=== PATIENT | male | born 1965 | race Caucasian/White ===

== ENCOUNTER → 2016-07-16 | Day surgery (SDC) | payer OTHER ==
[~2016-07-16] VITALS: Ht 182.9 cm; Wt 150.1 kg
[~2016-07-16] MED LIST: *ONDANSETRON 4 MG VIAL PERIprocedural Use ONLY ONE; *PROMETHAZINE 25 MG/ML VIAL PERIprocedural use ONLY ONE; *morphine SULFATE 8 MG/ML PERIprocedure ONLY ONE; ASPI325T PO; BACITRACIN TOP OINT 15 GM TUBE ONE; BUPIVACAINE HCL PF 0.5% 30 ML VIAL ONE; CARV6.252 PO; CHLORHEXIDINE GLUCONATE 2 % 1 PACK (2 CLOTHS) TOPICAL PRN; DO NOT ADM ANY ANTICOAGULANT DRUGS PRN; FAMOTIDINE 20 MG/2 ML VIAL ONE; FURO1TAB62 PO; INSULIN HUMAN REGULAR 1,000 UNITS/10 ML VIAL SQ PRN; KETOROLAC TROMETHAMINE 60 MG/2 ML (IM) VIAL IM ONE; LACTATED RINGER'S 1000 ML IV PRN; LIDOCAINE HCL 2% 50 ML VIAL ONE; METF-382 PO; METOPROLOL TARTRATE 25 MG TAB PO PRN; MIDAZOLAM HCL 2 MG/2 ML VIAL ONE; MORPHINE SULFATE 4 MG/ML INJ IV PRN; NEOSTIGMINE 3 MG/3 ML SYR IV ONE; ONDANSETRON HCL 4 MG/2 ML VIAL IV PUSH ONE; ONDANSETRON HCL 4 MG/2 ML VIAL IV PUSH PRN; POTA10CA PO; POVIDONE IODINE 5% (ANTISEPSIS KIT) 4 APPLICATIONS EACH NARE PRN; PROPOFOL 200 MG/20 ML AMP IV ONE; SIMV80TA PO; SODIUM CHLORID 0.9% 500 ML IV PRN; TAMS5CAP PO; ceFAZolin 1,000 MG/NS 100 ML IV SCH; fentaNYL CITRATE 250 MCG/5 ML AMP ONE; oxyCODONE/ACETAMINOPHEN 5 MG/325 MG TAB PO PRN
[2016-07-16 06:30] VITALS: BP 147/89; PULSE 75; RESP 18; TEMP 98; O2SAT 96
[2016-07-16 06:50] LABS: AUTOMATED NEUTROPHIL # 4.2 TH/MM3 (1.8-7.7); BASOPHIL # 0.1 TH/MM3 (0-0.2); BASOPHIL % 0.8 % (0.0-2.0); EOSINOPHIL # 0.4 TH/MM3 (0-0.4); EOSINOPHIL % 4.8 % (0.0-4.0); HEMATOCRIT 45.6 % (39.0-51.0); HEMO FLAGS DIFF FINAL; LYMPH % 33.7 % (9.0-44.0); LYMPHOCYTE # 2.7 TH/MM3 (1.0-4.8); MEAN CELL VOLUME 83.5 FL (80.0-100.0); MEAN CORPUSCULAR HGB CONC 34.7 % (32.0-36.0); MONO % 8.5 % (0.0-8.0); NEUT % 52.2 % (16.0-70.0); PLATELET COUNT 184 TH/MM3 (150-450); RED BLOOD COUNT 5.46 MIL/MM3 (4.50-5.90); RED CELL DISTRIBUTION WIDTH 12.7 % (11.6-17.2); WHITE BLOOD COUNT 8.1 TH/MM3 (4.0-11.0)
--- NOTE | 2016-07-16 10:20 | PD.OP ---
Operative Report Date of Surgery: July 16, 2016 Preoperative Diagnosis: Phimosis, Desire for elective sterilization Postoperative Diagnosis: Phimosis, Desire for elective sterilization, penile condyloma Procedure: Bilateral vasectomy Circumcision Excision of penile condyloma Anesthesia: Gen. Surgeon: Brandon Preston Care Partner(s): None Resident Surgeon: None Operation and Findings: Patient was brought to the operating room and therefore myself as Rene Hollingsworth. He was placed on the operating room in the supine position. He was prepped and draped in usual sterile fashion, received preprocedure antibiotics, and general LMA anesthesia was administered. The median raphae was identified and using my left index finger and thumb the vas deference on the patient's right side was identified. It was brought up to the area of the median raphae and 5 cc of 0.5% Marcaine was injected into the area. The ring clamp was used to grasp the right vas deference and this area. 15 blade was used to make a small incision over the area of the vas. The ring clamp was then used to grab the vas and bring it through the surface of the skin. The piercing forcep clamp was then used to release the attachments surrounding the vas deferens. Once the length was sufficient, the vas was cut. The specimen was then sent to pathology. The ends of the proximal and distal vas deference were then cauterized and oversewn with 4-0 chromic suture. Hemostasis was checked for and obtained. The vas was then released back into the scrotum. This entire procedure was then repeated with the left vas deference and the skin was then closed with interrupted 4-0 Monocryl suture. Attention then was directed to the performing of the circumcision. A double ring circumcision was performed. 15 blade was used to make a circumferential incision into the skin overlying the glans. Another incision was then made circumferentially at the skin level just proximal to the head of the glans. The skin in between the 2 incisions was then removed using the Bovie cautery. Hemostasis was obtained. 3-0 chromic sutures were then used in interrupted fashion to close the foreskin and bring the ends back together. At this time, it was noted that there was a small area of condyloma near the glans penis. Using the 15 blade, a small wart was removed. The area was then fulgurated with the Bovie cautery. Dressings were placed over the incision site with Xeroform and a half inch Dmitry. The patient tolerated the procedures well and was extubated and transferred curb in stable condition. He will follow-up in one month to review the pathology and do a wound check at that time. Brandon Preston DO July 16, 2016 10:20
[2016-07-16 11:30] VITALS: BP 150/79; PULSE 78; RESP 22; TEMP 97.6; O2SAT 95
--- NOTE | 2016-07-20 12:49 | EKG ---
Date Performed: 07/16/2016 Time Performed: 06:51:25 PTAGE: 51 years EKG: Sinus rhythm MODERATE INTRAVENTRICULAR CONDUCTION DELAY BORDERLINE ECG PREVIOUS TRACING : 03/14/2015 19.02 DOCTOR: Kristofer Taylor Interpretating Date/Time 07/20/2016 12:47:49
== END | disposition home or self-care (01) ==
LOC: HSDC 05:36
PROVIDERS: ATTEND Urology
DX: N47.1 Phimosis (principal); Z30.2 Encounter for sterilization; A63.0 Anogenital (venereal) warts; Z01.818 Encounter for other preprocedural examination; Z01.810 Encounter for preprocedural cardiovascular examination
CPT/HCPCS: 00920; 54060; 54150; 55250; 85025; 88302; 88305; 93005; J0690; J1885; J2250; J2270; J2405; J2550; J2710; J3010

== ENCOUNTER 2016-10-20 20:36 | Emergency (ER) | payer OTHER ==
[~2016-10-20] VITALS: Ht 182.9 cm; Wt 153.0 kg
[~2016-10-20 20:36] MED LIST changes: -*ONDANSETRON 4 MG VIAL PERIprocedural Use ONLY ONE; -*PROMETHAZINE 25 MG/ML VIAL PERIprocedural use ONLY ONE; -*morphine SULFATE 8 MG/ML PERIprocedure ONLY ONE; -BACITRACIN TOP OINT 15 GM TUBE ONE; -BUPIVACAINE HCL PF 0.5% 30 ML VIAL ONE; -CHLORHEXIDINE GLUCONATE 2 % 1 PACK (2 CLOTHS) TOPICAL PRN; -DO NOT ADM ANY ANTICOAGULANT DRUGS PRN; -FAMOTIDINE 20 MG/2 ML VIAL ONE; -INSULIN HUMAN REGULAR 1,000 UNITS/10 ML VIAL SQ PRN; -KETOROLAC TROMETHAMINE 60 MG/2 ML (IM) VIAL IM ONE; -LACTATED RINGER'S 1000 ML IV PRN; -LIDOCAINE HCL 2% 50 ML VIAL ONE; -METOPROLOL TARTRATE 25 MG TAB PO PRN; -MIDAZOLAM HCL 2 MG/2 ML VIAL ONE; -MORPHINE SULFATE 4 MG/ML INJ IV PRN; -NEOSTIGMINE 3 MG/3 ML SYR IV ONE; -ONDANSETRON HCL 4 MG/2 ML VIAL IV PUSH ONE; -ONDANSETRON HCL 4 MG/2 ML VIAL IV PUSH PRN; -POVIDONE IODINE 5% (ANTISEPSIS KIT) 4 APPLICATIONS EACH NARE PRN; -PROPOFOL 200 MG/20 ML AMP IV ONE; -SODIUM CHLORID 0.9% 500 ML IV PRN; -ceFAZolin 1,000 MG/NS 100 ML IV SCH; -fentaNYL CITRATE 250 MCG/5 ML AMP ONE; -oxyCODONE/ACETAMINOPHEN 5 MG/325 MG TAB PO PRN
[2016-10-20 20:51] VITALS: BP 188/84; PULSE 85; RESP 20; TEMP 98; O2SAT 95
[2016-10-20 22:50] VITALS: BP 176/87; PULSE 80; RESP 20; O2SAT 96
[2016-10-20] MEDS ORDERED: SODIUM CHLORIDE 0.9% FLUSH 10 ML FLUSH IVF PRN (23:15)
--- NOTE | 2016-10-20 23:15 | PD ---
HPI Chief Complaint: Chest Pain Time Seen by Provider: 22:58 Travel History International Travel<30 days: No Contact w/Intl Traveler<30days: No Traveled to known affect area: No History of Present Illness HPI The patient is a 51-year-old male that complains of subxiphoid pain, right upper quadrant pain and slight left upper quadrant pain for about 3 days. He does have fatty food intolerance. He states he was worried about his gallbladder. The pain occasionally radiates to the back. He is not nauseated and he denies any diarrhea but does get short of breath. There is no radiation of the pain. The pain is constant although it increases and decreases in intensity. PFSH Past Medical History Hx Anticoagulant Therapy: No Blood Disorders: No Cancer: No Cardiovascular Problems: No High Cholesterol: Yes Chemotherapy: No Cerebrovascular Accident: Yes Diabetes: Yes Patient Takes Glucophage: Yes Diminished Hearing: No Endocrine: Yes Gastrointestinal Disorders: Yes (pancreatitis in past ) Genitourinary: No Hepatitis: No Hiatal Hernia: No Hypertension: Yes Immune Disorder: No Musculoskeletal: No Neurologic: No Psychiatric: No Reproductive: No Respiratory: No Immunizations Current: Yes Thyroid Disease: No Tetanus Vaccination: < 5 Years Influenza Vaccination: No Past Surgical History Abdominal Surgery: Yes (VENTRICAL HERNIA REPAIR) AICD: No Cardiac Surgery: No Ear Surgery: No Endocrine Surgery: No Eye Surgery: No Genitourinary Surgery: No Joint Replacement: No Oral Surgery: No Pacemaker: No Thoracic Surgery: No Other Surgery: Yes (hernia, cyst removal, vasectomy) Social History Alcohol Use: No Tobacco Use: Yes (4-6 CIGS DAILY) Substance Use: No Allergies-Medications (Allergen,Severity, Reaction): Coded Allergies: No Known Allergies (Verified , 10/20/16) Reported Meds & Prescriptions Reported Meds & Active Scripts Active Flomax (Tamsulosin HCl) 0.4 Mg Cap 0.4 Mg PO HS Reported Simvastatin 80 Mg Tab 80 Mg PO DAILY Potassium Chloride ER (Potassium Chloride) 10 Meq Cap 10 Meq PO DAILY Lasix (Furosemide) 20 Mg Tab 20 Mg PO DAILY Metformin ER (Metformin HCl) 1,000 Mg Robbi 1,000 Mg PO BID With evening meal Carvedilol 6.25 Mg Tab 6.25 Mg PO Q12HR Aspirin 325 Mg Tab 325 Mg PO DAILY Review of Systems Except as stated in HPI: all other systems reviewed are Neg Physical Exam Narrative GENERAL: The patient is alert, oriented 3, morbidly obese and slight apparent distress with his abdominal pain. His vital signs show blood pressure 176/87 but are otherwise normal. SKIN: Focused skin assessment warm/dry. HEAD: Atraumatic. Normocephalic. EYES: Pupils equal and round. No scleral icterus. No injection or drainage. ENT: No nasal bleeding or discharge. Mucous membranes pink and moist. NECK: Trachea midline. No JVD. CARDIOVASCULAR: Regular rate and rhythm. No murmur appreciated. RESPIRATORY: No accessory muscle use. Clear to auscultation. Breath sounds equal bilaterally. GASTROINTESTINAL: Abdomen soft, with tenderness in the right upper quadrant to direct palpation and tenderness in the xiphoid process and slight tenderness in the left upper quadrant, nondistended. Hepatic and splenic margins not palpable. No guarding or rebound is present. MUSCULOSKELETAL: No obvious deformities. No clubbing. No cyanosis. No edema. NEUROLOGICAL: Awake and alert. No obvious cranial nerve deficits. Motor grossly within normal limits. Normal speech. PSYCHIATRIC: Appropriate mood and affect; insight and judgment normal. Data Data Last Documented VS Vital Signs Date Time Temp Pulse Resp B/P Pulse Ox O2 Delivery O2 Flow Rate FiO2 10/21/16 00:09 85 20 182/85 96 206/95 10/20/16 22:50 Room Air 10/20/16 20:51 98.0 Orders Electrocardiogram (10/20/16 ) Electrocardiogram (10/20/16 23:02) Complete Blood Count With Diff (10/20/16 23:02) Comprehensive Metabolic Panel (10/20/16 23:02) Magnesium (Mg) (10/20/16 23:02) Prothrombin Time / Inr (Pt) (10/20/16 23:02) Act Partial Throm Time (Ptt) (10/20/16 23:02) Troponin I (10/20/16 23:02) Ecg Monitoring (10/20/16 23:02) Bilateral Bp Monitoring (10/20/16 23:02) Iv Access Insert/Monitor (10/20/16 23:02) Oximetry (10/20/16 23:02) Oxygen Administration (10/20/16 23:02) Sodium Chloride 0.9% Flush (Ns Flush) (10/20/16 23:15) Chest, Pa & Lat (10/20/16 23:02) Urinalysis - C+S If Indicated (10/20/16 23:09) Ct Abd/Pel W Iv Contrast(Rout) (10/20/16 23:09) Lipase (10/20/16 23:02) Iohexol 350 Inj (Omnipaque 350 Inj) (10/20/16 23:45) Insulin Human Regular Inj (Novolin R Inj (10/21/16 01:00) Labs Laboratory Tests Test 10/20/16 23:00 White Blood Count 10.3 TH/MM3 Red Blood Count 5.64 MIL/MM3 Hemoglobin 15.8 GM/DL Hematocrit 47.3 % Mean Corpuscular Volume 83.7 FL Mean Corpuscular Hemoglobin 28.0 PG Mean Corpuscular Hemoglobin 33.4 % Concent Red Cell Distribution Width 12.2 % Platelet Count 187 TH/MM3 Mean Platelet Volume 10.8 FL Neutrophils (%) (Auto) 53.2 % Lymphocytes (%) (Auto) 35.1 % Monocytes (%) (Auto) 8.1 % Eosinophils (%) (Auto) 3.0 % Basophils (%) (Auto) 0.6 % Neutrophils # (Auto) 5.5 TH/MM3 Lymphocytes # (Auto) 3.6 TH/MM3 Monocytes # (Auto) 0.8 TH/MM3 Eosinophils # (Auto) 0.3 TH/MM3 Basophils # (Auto) 0.1 TH/MM3 CBC Comment DIFF FINAL Differential Comment Prothrombin Time 10.5 SEC Prothromb Time International 1.0 RATIO Ratio Activated Partial 26.2 SEC Thromboplast Time Urine Color YELLOW Urine Turbidity CLEAR Urine pH 6.0 Urine Specific [place] 1.033 Urine Protein NEG mg/dL Urine Glucose (UA) 1000 OR GREATER mg/dL Urine Ketones NEG mg/dL Urine Occult Blood NEG Urine Nitrite NEG Urine Bilirubin NEG Urine Leukocyte Esterase NEG Urine RBC 0-3 /hpf Urine Squamous Epithelial 0-5 /hpf Cells Microscopic Urinalysis Comment CULT NOT INDICATED Sodium Level 133 MEQ/L Potassium Level 4.1 MEQ/L Chloride Level 99 MEQ/L Carbon Dioxide Level 27.4 MEQ/L Anion Gap 7 MEQ/L Blood Urea Nitrogen 23 MG/DL Creatinine 1.00 MG/DL Estimat Glomerular Filtration 78 ML/MIN Rate Random Glucose 367 MG/DL Calcium Level 9.0 MG/DL Magnesium Level 1.7 MG/DL Total Bilirubin 0.6 MG/DL Aspartate Amino Transf 17 U/L (AST/SGOT) Alanine Aminotransferase 31 U/L (ALT/SGPT) Alkaline Phosphatase 99 U/L Troponin I LESS THAN 0.02 NG/ML Total Protein 7.4 GM/DL Albumin 3.2 GM/DL Lipase 393 U/L MDM Medical Decision Making Medical Screen Exam Complete: Yes Emergency Medical Condition: Yes Medical Record Reviewed: Yes Interpretation(s) The CT abdomen/pelvis with IV contrast shows hepatomegaly and hepatic steatosis , atherosclerotic calcifications, right adrenal mild lipomas and mild low lipomas and mild skin thickening which does not appear as a cellulitis on clinical evaluation. The CBC is normal. The complete metabolic profile shows a sodium of 133, BUN of 23, glucose 367 and albumen of 3.2 but is otherwise normal. The troponin I is normal and the lipase is normal. The coagulation profile is normal. The specific gravity is abnormal at 1.033. Differential Diagnosis Gallbladder colic, acute cholecystitis, colitis, musculoskeletal pain, small bowel obstructionunlikely, urinary tract infection, pancreatitis, diabetes mellitus poor control Narrative Course The patient's pain is better, he has no nausea. The gallbladder appears normal and this does not appear as a pancreatitis. The patient has an elevated blood sugar of 367, he states he gets this every now and then. He is to follow up with Dr. Guzman to control his blood sugar better. Impressions: Abdominal pain etiology undetermined and diabetes mellitus poor control Diagnosis Primary Impression: Abdominal pain of unknown etiology Additional Impression: Poorly controlled diabetes mellitus Additional Instructions: As we discussed, follow-up with Dr. Guzman this week or early next week. He needs to get the diabetes under better control. Better control your blood sugar may help your abdominal pain. Disposition: 01 DISCHARGE HOME Condition: Stable Shaka Bautista MD Oct 20, 2016 23:15
[2016-10-20 23:24] LABS: AUTOMATED NEUTROPHIL # 5.5 TH/MM3 (1.8-7.7); BASOPHIL # 0.1 TH/MM3 (0-0.2); BASOPHIL % 0.6 % (0.0-2.0); EOSINOPHIL # 0.3 TH/MM3 (0-0.4); HEMATOCRIT 47.3 % (39.0-51.0); HEMO FLAGS DIFF FINAL; LYMPH % 35.1 % (9.0-44.0); LYMPHOCYTE # 3.6 TH/MM3 (1.0-4.8); MEAN CELL VOLUME 83.7 FL (80.0-100.0); MEAN CORPUSCULAR HGB CONC 33.4 % (32.0-36.0); MONO % 8.1 % (0.0-8.0); NEUT % 53.2 % (16.0-70.0); PLATELET COUNT 187 TH/MM3 (150-450); RED BLOOD COUNT 5.64 MIL/MM3 (4.50-5.90); RED CELL DISTRIBUTION WIDTH 12.2 % (11.6-17.2); WHITE BLOOD COUNT 10.3 TH/MM3 (4.0-11.0)
[2016-10-20 23:27] LABS: BLOOD, URINE NEG (NEG); KETONE, URINE NEG (NEG); NITRITE,URINE NEG (NEG)
--- NOTE | 2016-10-20 23:31 | RADRPT ---
EXAM DATE/TIME: 10/20/2016 23:18 [facility] COMPARISON: CHEST SINGLE AP, December 27, 2014, 22:06. INDICATIONS : Chest and back pain. MEDICAL HISTORY : Hypertension. Diabetes mellitus type II. SURGICAL HISTORY : None. ENCOUNTER: Initial ACUITY: 2 days PAIN SCORE: 6/10 LOCATION: Bilateral chest FINDINGS: PA and lateral views of the chest demonstrate the lungs to be symmetrically aerated without evidence of mass, infiltrate or effusion. The cardiomediastinal contours are unremarkable. Osseous structure s are intact. CONCLUSION: Normal examination. Dada Colby MD on October 20, 2016 at 23:30 Board Certified Radiologist. This report was verified electronically.
[2016-10-20 23:32] LABS: CHLORIDE 99 MEQ/L (98-107); GLUCOSE,URINE 1000 OR GREATER mg/dL (NEG); POTASSIUM 4.1 MEQ/L (3.5-5.1); SODIUM (NA) 133 MEQ/L (136-145)
[2016-10-20 23:33] LABS: URINE COLOR YELLOW (YELLW/STRAW)
[2016-10-20 23:35] LABS: RBC, URINE 0-3 /hpf (0-3); SQUAMOUS EPITHELIAL CELL URINE 0-5 /hpf (0-5)
[2016-10-20 23:36] LABS: ANION GAP 7 MEQ/L (5-15); BICARBONATE 27.4 MEQ/L (21.0-32.0); BLOOD UREA NITROGEN 23 MG/DL (7-18); COMMENT (UR) CULT NOT INDICATED; CULTURE IF INDICATED CULT NOT INDICATED; MAGNESIUM 1.7 MG/DL (1.5-2.5)
[2016-10-20 23:38] LABS: ALT (GPT) 31 U/L (12-78); APTT (PATIENT) 26.2 SEC (24.3-30.1); PROTHROMBIN TIME - PATIENT 10.5 SEC (9.8-11.6)
[2016-10-20 23:39] LABS: AST (GOT) 17 U/L (15-37); GLOMERULAR FILTRATION RATE 78 ML/MIN (>89)
[2016-10-20 23:40] LABS: TOTAL BILIRUBIN ADULT 0.6 MG/DL (0.2-1.0)
[2016-10-20 23:41] LABS: ALKALINE PHOSPHATASE 99 U/L (45-117)
[2016-10-20] MEDS ORDERED: IOHEXOL 350 MG/ML 10 ML VIAL (for RAD DIAG) IV ONE (23:45)
[2016-10-21 00:09] VITALS: BP_SYST 182; BP_SYST 206; BP_DIAS 85; BP_DIAS 95; PULSE 85; RESP 20; O2SAT 96
--- NOTE | 2016-10-21 00:18 | RADRPT ---
EXAM DATE/TIME: 10/20/2016 23:47 [facility] COMPARISON: CT ABDOMEN & PELVIS W CONTRAST, March 14, 2015, 20:33. INDICATIONS : Bilateral upper quadrant pain. IV CONTRAST: 100 cc Omnipaque 350 (iohexol) IV ORAL CONTRAST: No oral contrast ingested. RADIATION DOSE: 22.37 CTDIvol (mGy) MEDICAL HISTORY : Pancreatitis. Diabetes mellitus type 2. Hypertension. SURGICAL HISTORY : Umbilical hernia repair. ENCOUNTER: Initial ACUITY: 3 days PAIN SCALE: 8/10 LOCATION: Bilateral upper quadrant TECHNIQUE: Volumetric scanning of the abdomen and pelvis was performed. Using automated exposure control and ad justment of the mA and/or kV according to patient size, radiation dose was kept as low as reasonably achievable to obtain optimal diagnostic quality images. DICOM format image data is available electro nically for review and comparison. FINDINGS: There is hepatic steatosis and hepatomegaly. Gallbladder, kidneys, spleen, pancreas, left adrenal gla nd unremarkable. The right adrenal gland demonstrates 2 circumscribed fat attenuation mass is charact eristic of myelolipomas. These are stable. Previous mesh repair of ventral hernia. Urinary bladder, p rostate unremarkable. A few colonic diverticuli without diverticulitis. Appendix normal. No adenopath y or aneurysm. There is mild skin thickening and stranding of the subcutaneous fat anterior abdominal wall on the right which may reflect a mild cellulitis. This is asymmetric from the left. No abscess. No adenopathy or aneurysm. Atherosclerosis is noted. Lung bases are clear. Osseous structures are in tact. CONCLUSION: 1. Hepatomegaly and hepatic steatosis. 2. Atherosclerotic calcifications. 3. Right adrenal myolipomas. Myelolipomas 4. Mild skin thickening and subcutaneous fat stranding right anterior abdominal wall can be seen with a cellulitis. Dada Colby MD on October 21, 2016 at 0:15 Board Certified Radiologist. This report was verified electronically.
[2016-10-21] MEDS ORDERED: INSULIN HUMAN REGULAR 1,000 UNITS/10 ML VIAL IV PUSH ONE (01:00)
[2016-10-21 01:19] VITALS: BP 190/103
--- NOTE | 2016-10-21 08:23 | EKG ---
Date Performed: 10/20/2016 Time Performed: 20:57:58 PTAGE: 51 years EKG: Sinus rhythm NORMAL ECG PREVIOUS TRACING : 07/16/2016 06.51 DOCTOR: Kristofer Taylor Interpretating Date/Time 10/21/2016 08:22:48
== END 2016-10-21 01:32 | disposition home or self-care (01) ==
LOC: PHED 20:36
DX: R10.10 Upper abdominal pain, unspecified (principal); E11.65 Type 2 diabetes mellitus with hyperglycemia; R06.02 Shortness of breath; E78.00 Pure hypercholesterolemia, unspecified; I10 Essential (primary) hypertension; F17.210 Nicotine dependence, cigarettes, uncomplicated; Z86.73 Personal history of transient ischemic attack (TIA), and cerebral infarction without residual deficits
CPT/HCPCS: 71020; 74177; 80053; 81001; 83690; 83735; 84484; 85025; 85610; 85730; 93005; 96374; 99285; J1815; Q9967

== ENCOUNTER 2016-10-21 20:42 | Observation (INO) | payer OTHER ==
[~2016-10-21] VITALS: Ht 182.9 cm; Wt 154.0 kg
[2016-10-21 20:43] VITALS: BP 185/88; PULSE 84; RESP 16; TEMP 97.8; O2SAT 96
--- NOTE | 2016-10-21 20:46 | PD ---
Physical Exam Date Seen by Provider: Oct 21, 2016 Time Seen by Provider: 20:45 Narrative 51 yo male here for abdominal pain that goes to the back. Started two days ago. Seen at [facility] and was given meds with some relief. Pain came back. No falls or injuries. pain is 8/10. No allergies. Vitals are stable in triage. Awaiting Bed placement. Data Data Last Documented VS Vital Signs Date Time Temp Pulse Resp B/P Pulse Ox O2 Delivery O2 Flow Rate FiO2 10/21/16 20:43 97.8 84 16 185/88 96 Room Air [facility] Medical Record Reviewed: Yes Supervised Visit with BARON: No Graham Bernard Oct 21, 2016 20:46
--- NOTE | 2016-10-21 20:52 | PD ---
HPI . epigastric pain x few days Chief Complaint: Chest Pain Time Seen by Provider: 21:03 Travel History International Travel<30 days: No Contact w/Intl Traveler<30days: No Traveled to known affect area: No History of Present Illness HPI 51-year-old male with hypertension, hyperlipidemia, diabetes, history of pancreatitis in the past here with complaints of epigastric pain. Apparently patient was seen in [place] for similar and CT scan and labs were unremarkable. Patient was sent home and tells me that his pain has continued despite negative workup. He rates the pain as 10/10 in the epigastric area. There is also some pain in the right upper quadrant. On examination he does have a positive Reid sign. He denies any nausea, vomiting or diarrhea. He does report that he may have had a darker colored stool today. He denies any melena or hematochezia. PFSH Past Medical History Hx Anticoagulant Therapy: No Blood Disorders: No Cancer: No Cardiovascular Problems: No High Cholesterol: Yes Chemotherapy: No Cerebrovascular Accident: Yes (TIA) Diabetes: Yes Patient Takes Glucophage: Yes Diminished Hearing: No Endocrine: Yes Gastrointestinal Disorders: Yes (pancreatitis in past ) Genitourinary: No Hepatitis: No Hiatal Hernia: No Hypertension: Yes Immune Disorder: No Musculoskeletal: No Neurologic: No Psychiatric: No Reproductive: No Respiratory: No Immunizations Current: Yes Pancreatitis: Yes Thyroid Disease: No Past Surgical History Abdominal Surgery: Yes (VENTRICAL HERNIA REPAIR) AICD: No Cardiac Surgery: No Ear Surgery: No Endocrine Surgery: No Eye Surgery: No Genitourinary Surgery: No Joint Replacement: No Oral Surgery: No Pacemaker: No Thoracic Surgery: No Other Surgery: Yes (cyst removal, vasectomy) Social History Alcohol Use: No Tobacco Use: Yes (1PP3D) Substance Use: No Allergies-Medications (Allergen,Severity, Reaction): Coded Allergies: No Known Allergies (Verified , 10/21/16) Reported Meds & Prescriptions Reported Meds & Active Scripts Active Flomax (Tamsulosin HCl) 0.4 Mg Cap 0.4 Mg PO HS Reported Simvastatin 80 Mg Tab 80 Mg PO DAILY Potassium Chloride ER (Potassium Chloride) 10 Meq Cap 10 Meq PO DAILY Lasix (Furosemide) 20 Mg Tab 20 Mg PO DAILY Metformin ER (Metformin HCl) 1,000 Mg Robbi 1,000 Mg PO BID With evening meal Carvedilol 6.25 Mg Tab 6.25 Mg PO Q12HR Aspirin 325 Mg Tab 325 Mg PO DAILY Review of Systems General / Constitutional: No: Fever Eyes: No: Visual changes HENT: No: Headaches Cardiovascular: No: Chest Pain or Discomfort Respiratory: No: Shortness of Breath Gastrointestinal: Positive: Abdominal Pain (epigastric pain) Genitourinary: No: Dysuria Musculoskeletal: No: Pain Skin: No Rash Neurologic: No: Weakness Psychiatric: No: Depression Endocrine: No: Polydipsia Hematologic/Lymphatic: No: Easy Bruising Physical Exam Narrative GENERAL: AAO x 3, no acute distress, Well-nourished, well-developed patient. obese SKIN: Warm and dry. No visible rashes or bruising. HEAD: Normocephalic and atraumatic. EYES: No scleral icterus. No injection or drainage. EOM intact, PERRLA ENT: No nasal drainage noted. Mucous membranes pink. Airway patent. NECK: Supple, trachea midline. No JVD. CARDIOVASCULAR: Regular rate and rhythm without murmurs, gallops, or rubs. RESPIRATORY: Breath sounds equal bilaterally. No accessory muscle use. No rhonchi or rales. GASTROINTESTINAL: Abdomen large, + reid's sign, tenderness to epigastric area. no rebound or guarding. EXTREMITIES: No cyanosis or edema. BACK: Nontender without obvious deformity. No CVA tenderness. NEURO: CN II-12 intact, account support analyst strength normal b/l, UE and LE 5/5, no focal deficits PSYCH: AAO x 3, normal affect. Data Data Last Documented VS Vital Signs Date Time Temp Pulse Resp B/P Pulse Ox O2 Delivery O2 Flow Rate FiO2 10/21/16 20:43 97.8 84 16 185/88 96 Room Air Orders Electrocardiogram (10/21/16 20:58) Ckmb (Isoenzyme) Profile (10/21/16 20:58) Complete Blood Count With Diff (10/21/16 20:58) Magnesium (Mg) (10/21/16 20:58) Prothrombin Time / Inr (Pt) (10/21/16 20:58) Act Partial Throm Time (Ptt) (10/21/16 20:58) Troponin I (10/21/16 20:58) Chest, Single Ap (10/21/16 20:58) Ecg Monitoring (10/21/16 20:58) Bilateral Bp Monitoring (10/21/16 20:58) Iv Access Insert/Monitor (10/21/16 20:58) Oximetry (10/21/16 20:58) Oxygen Administration (10/21/16 20:58) Sodium Chloride 0.9% Flush (Ns Flush) (10/21/16 21:00) Us Abdomen Gallbladder (10/21/16 20:58) Comprehensive Metabolic Panel (10/21/16 20:58) Tramadol (Ultram) (10/21/16 21:15) Morphine Inj (Morphine Inj) (10/21/16 22:00) Lipase (10/21/16 22:18) Pantoprazole Inj (Protonix Inj) (10/21/16 23:15) Al-Mag Hy-Si 40-40-4 Mg/Ml Liq (Mag-Al P (10/21/16 23:15) Lidocaine 2% Viscous (Xylocaine 2% Visco (10/21/16 23:15) Aspirin Chew (Aspirin Chew) (10/21/16 23:15) Admit Order (Ed Use Only) (10/21/16 23:07) Labs Laboratory Tests Test 10/21/16 22:18 White Blood Count 10.6 TH/MM3 Red Blood Count 5.78 MIL/MM3 Hemoglobin 16.8 GM/DL Hematocrit 48.9 % Mean Corpuscular Volume 84.6 FL Mean Corpuscular Hemoglobin 29.1 PG Mean Corpuscular Hemoglobin 34.4 % Concent Red Cell Distribution Width 13.2 % Platelet Count 181 TH/MM3 Mean Platelet Volume 9.5 FL Neutrophils (%) (Auto) 54.8 % Lymphocytes (%) (Auto) 33.5 % Monocytes (%) (Auto) 8.3 % Eosinophils (%) (Auto) 2.7 % Basophils (%) (Auto) 0.7 % Neutrophils # (Auto) 5.8 TH/MM3 Lymphocytes # (Auto) 3.6 TH/MM3 Monocytes # (Auto) 0.9 TH/MM3 Eosinophils # (Auto) 0.3 TH/MM3 Basophils # (Auto) 0.1 TH/MM3 CBC Comment DIFF FINAL Differential Comment Prothrombin Time 10.4 SEC Prothromb Time International 0.9 RATIO Ratio Activated Partial 25.4 SEC Thromboplast Time Sodium Level 133 MEQ/L Potassium Level 4.1 MEQ/L Chloride Level 96 MEQ/L Carbon Dioxide Level 29.2 MEQ/L Anion Gap 8 MEQ/L Blood Urea Nitrogen 22 MG/DL Creatinine 0.97 MG/DL Estimat Glomerular Filtration 81 ML/MIN Rate Random Glucose 319 MG/DL Calcium Level 9.0 MG/DL Magnesium Level 1.9 MG/DL Total Bilirubin 0.7 MG/DL Aspartate Amino Transf 19 U/L (AST/SGOT) Alanine Aminotransferase 34 U/L (ALT/SGPT) Alkaline Phosphatase 90 U/L Total Creatine Kinase 68 U/L Troponin I LESS THAN 0.02 NG/ML Total Protein 7.8 GM/DL Albumin 3.3 GM/DL Lipase 417 U/L [facility] Medical Decision Making Medical Screen Exam Complete: Yes Emergency Medical Condition: Yes Medical Record Reviewed: Yes Differential Diagnosis gastritis, cholelithiasis, cholecystitis, inferior MN, PUD, GERD Narrative Course 51 yr old male here with epigastric pain and RUQ pain. On exam he does have a + Reid's sign. I have ordered labs, imaging, and EKG. Dr. Morales has reviewed the EKG. Patient given med for pain control here in ED. 2235: workup still in progress. Case discussed with my attending Dr. Morales, who will determine patient's disposition. Condition: Stable Ernestine Roach Oct 21, 2016 20:52
[2016-10-21] MEDS ORDERED: SODIUM CHLORIDE 0.9% FLUSH 10 ML FLUSH IVF PRN (21:00)
[2016-10-21] MEDS ORDERED: traMADol HCL 50 MG TAB PO ONE (21:15)
--- NOTE | 2016-10-21 21:34 | RADRPT ---
EXAM DATE/TIME: 10/21/2016 21:02 [facility] COMPARISON: CHEST SINGLE AP, March 10, 2015, 12:38. INDICATIONS : Chest pain. MEDICAL HISTORY : Hypertension. Diabetes mellitus type II. SURGICAL HISTORY : None. ENCOUNTER: Initial ACUITY: 3 days PAIN SCORE: 4/10 LOCATION: Bilateral chest FINDINGS: A single view of the chest demonstrates the lungs to be symmetrically aerated without evidence of mas s, infiltrate or effusion. The cardiomediastinal contours are unremarkable. Osseous structures are intact. CONCLUSION: No acute disease. Bimal Orlando MD on October 21, 2016 at 21:32 Board Certified Radiologist. This report was verified electronically.
[2016-10-21] MEDS ORDERED: MORPHINE SULFATE 8 MG/ML INJ IV PUSH ONE (22:00)
[2016-10-21 22:27] LABS: AUTOMATED NEUTROPHIL # 5.8 TH/MM3 (1.8-7.7); BASOPHIL # 0.1 TH/MM3 (0-0.2); BASOPHIL % 0.7 % (0.0-2.0); EOSINOPHIL # 0.3 TH/MM3 (0-0.4); EOSINOPHIL % 2.7 % (0.0-4.0); HEMATOCRIT 48.9 % (39.0-51.0); HEMO FLAGS DIFF FINAL; LYMPH % 33.5 % (9.0-44.0); LYMPHOCYTE # 3.6 TH/MM3 (1.0-4.8); MEAN CELL VOLUME 84.6 FL (80.0-100.0); MEAN CORPUSCULAR HEMOGLOBIN 29.1 PG (27.0-34.0); MEAN CORPUSCULAR HGB CONC 34.4 % (32.0-36.0); MONO % 8.3 % (0.0-8.0); NEUT % 54.8 % (16.0-70.0); PLATELET COUNT 181 TH/MM3 (150-450); RED BLOOD COUNT 5.78 MIL/MM3 (4.50-5.90); RED CELL DISTRIBUTION WIDTH 13.2 % (11.6-17.2); WHITE BLOOD COUNT 10.6 TH/MM3 (4.0-11.0)
--- NOTE | 2016-10-21 22:37 | RADRPT ---
EXAM DATE/TIME: 10/21/2016 21:47 [facility] COMPARISON: No previous studies available for comparison. INDICATIONS : Right upper quadrant pain. MEDICAL HISTORY : Stroke. Myocardial infarction. Hypercholesterolemia. Reading glasses. Hypertension. Pancreatitis. Kid selina stones. Prostate problems. Diabetes. SURGICAL HISTORY : Ventricle hernia repair. Vasectomy. Cyst removal. ENCOUNTER: Initial ACUITY: 3 days PAIN SCORE: 2/10 LOCATION: Right upper quadrant MEASUREMENTS: LIVER: 21.1 cm length COMMON DUCT: 4 mm RIGHT KIDNEY: 12.9 x 5.1 x 6.8 cm FINDINGS: LIVER: Fatty liver enlarged to 21 cm. COMMON DUCT: No intraluminal mass or stone visualized. GALLBLADDER: Contains no stones, demonstrates no wall thickening or pericholecystic fluid. PANCREAS: The visualized portions are within normal limits. RIGHT KIDNEY: No evidence of hydronephrosis, stone, or mass. CONCLUSION: 1. Fatty liver enlarged to 21 cm. Exam technically difficult due to overlying bowel gas and body habi tus. Bimal Orlando MD on October 21, 2016 at 22:26 Board Certified Radiologist. This report was verified electronically.
[2016-10-21 22:42] LABS: APTT (PATIENT) 25.4 SEC (24.3-30.1); INTERNATIONAL NORMALIZED RATIO 0.9 RATIO; PROTHROMBIN TIME - PATIENT 10.4 SEC (9.8-11.6)
[2016-10-21 22:48] LABS: ALT (GPT) 34 U/L (12-78); ANION GAP 8 MEQ/L (5-15); AST (GOT) 19 U/L (15-37); BICARBONATE 29.2 MEQ/L (21.0-32.0); BLOOD UREA NITROGEN 22 MG/DL (7-18); CHLORIDE 96 MEQ/L (98-107); GLOMERULAR FILTRATION RATE 81 ML/MIN (>89); MAGNESIUM 1.9 MG/DL (1.5-2.5); POTASSIUM 4.1 MEQ/L (3.5-5.1); SODIUM (NA) 133 MEQ/L (136-145)
[2016-10-21 22:52] LABS: ALKALINE PHOSPHATASE 90 U/L (45-117); CREATINE KINASE 68 U/L (39-308); TOTAL BILIRUBIN ADULT 0.7 MG/DL (0.2-1.0)
--- NOTE | 2016-10-21 23:13 | PD ---
Data Data Last Documented VS Vital Signs Date Time Temp Pulse Resp B/P Pulse Ox O2 Delivery O2 Flow Rate FiO2 10/21/16 20:43 97.8 84 16 185/88 96 Room Air Orders Electrocardiogram (10/21/16 20:58) Ckmb (Isoenzyme) Profile (10/21/16 20:58) Complete Blood Count With Diff (10/21/16 20:58) Magnesium (Mg) (10/21/16 20:58) Prothrombin Time / Inr (Pt) (10/21/16 20:58) Act Partial Throm Time (Ptt) (10/21/16 20:58) Troponin I (10/21/16 20:58) Chest, Single Ap (10/21/16 20:58) Ecg Monitoring (10/21/16 20:58) Bilateral Bp Monitoring (10/21/16 20:58) Iv Access Insert/Monitor (10/21/16 20:58) Oximetry (10/21/16 20:58) Oxygen Administration (10/21/16 20:58) Sodium Chloride 0.9% Flush (Ns Flush) (10/21/16 21:00) Us Abdomen Gallbladder (10/21/16 20:58) Comprehensive Metabolic Panel (10/21/16 20:58) Tramadol (Ultram) (10/21/16 21:15) Morphine Inj (Morphine Inj) (10/21/16 22:00) Lipase (10/21/16 22:18) Pantoprazole Inj (Protonix Inj) (10/21/16 23:15) Al-Mag Hy-Si 40-40-4 Mg/Ml Liq (Mag-Al P (10/21/16 23:15) Lidocaine 2% Viscous (Xylocaine 2% Visco (10/21/16 23:15) Aspirin Chew (Aspirin Chew) (10/21/16 23:15) Admit Order (Ed Use Only) (10/21/16 23:07) Labs Laboratory Tests Test 10/21/16 22:18 White Blood Count 10.6 TH/MM3 Red Blood Count 5.78 MIL/MM3 Hemoglobin 16.8 GM/DL Hematocrit 48.9 % Mean Corpuscular Volume 84.6 FL Mean Corpuscular Hemoglobin 29.1 PG Mean Corpuscular Hemoglobin 34.4 % Concent Red Cell Distribution Width 13.2 % Platelet Count 181 TH/MM3 Mean Platelet Volume 9.5 FL Neutrophils (%) (Auto) 54.8 % Lymphocytes (%) (Auto) 33.5 % Monocytes (%) (Auto) 8.3 % Eosinophils (%) (Auto) 2.7 % Basophils (%) (Auto) 0.7 % Neutrophils # (Auto) 5.8 TH/MM3 Lymphocytes # (Auto) 3.6 TH/MM3 Monocytes # (Auto) 0.9 TH/MM3 Eosinophils # (Auto) 0.3 TH/MM3 Basophils # (Auto) 0.1 TH/MM3 CBC Comment DIFF FINAL Differential Comment Prothrombin Time 10.4 SEC Prothromb Time International 0.9 RATIO Ratio Activated Partial 25.4 SEC Thromboplast Time Sodium Level 133 MEQ/L Potassium Level 4.1 MEQ/L Chloride Level 96 MEQ/L Carbon Dioxide Level 29.2 MEQ/L Anion Gap 8 MEQ/L Blood Urea Nitrogen 22 MG/DL Creatinine 0.97 MG/DL Estimat Glomerular Filtration 81 ML/MIN Rate Random Glucose 319 MG/DL Calcium Level 9.0 MG/DL Magnesium Level 1.9 MG/DL Total Bilirubin 0.7 MG/DL Aspartate Amino Transf 19 U/L (AST/SGOT) Alanine Aminotransferase 34 U/L (ALT/SGPT) Alkaline Phosphatase 90 U/L Total Creatine Kinase 68 U/L Troponin I LESS THAN 0.02 NG/ML Total Protein 7.8 GM/DL Albumin 3.3 GM/DL Lipase 417 U/L MDM Supervised Visit with BARON: Yes Narrative Course I, Dr. Morales, have reviewed the advance practice practitioner's documentation and am in agreement, met with the patient face to face, made the diagnosis, and the medical decision making was done by me. See her note for further details. Briefly this a 51-year-old male with morbid obesity, diabetes, here for evaluation of epigastric abdominal pain and chest pain. The patient was seen in the emergency department yesterday for the same, had an unremarkable workup including a CT abdomen pelvis that showed no acute intra-abdominal abnormalities. He was treated and discharged from the emergency department. He returns today with similar pain. He describes pain as epigastric/substernal , sharp/pressure-like, radiates to his back, no modifying factors. On physical exam the patient is morbidly obese and is slightly diaphoretic. He has mild epigastric tenderness without peritoneal signs. Respiratory abdomen is soft and nontender. Lung sounds are clear and equal bilaterally. Heart is regular. Differential includes peptic ulcer disease, gastritis, pancreatitis, CAD, cholecystitis, cholelithiasis. Vital signs show heart rate 84, blood pressure 185/88, pulse ox 96% on room air , oral temp of 97.8F. CBC is unremarkable. CMP is remarkable for random glucose 319, otherwise unremarkable. Cardiac enzymes are negative. Lipase is 417. EKG shows no signs of ischemia. Chest x-ray: No acute disease. Right upper quadrant ultrasound: Fatty liver enlarged to 21 cm, exam technically difficult due to overlying bowel gas and body habitus. Normal appearing gallbladder without gallstones. Patient made aware of all findings. Given substernal chest pain that radiates to his back with history of morbid obesity and diabetes, the patient be admitted to the chest pain center for further cardiac evaluation. He is amenable to this plan. Diagnosis Primary Impression: Chest pain Qualified Code: R07.9 - Chest pain, unspecified type Additional Impression: Epigastric abdominal pain Admitting Information Admitting Physician Requests: Observation Condition: Stable Jewel Morales MD Oct 21, 2016 23:12
[2016-10-21] MEDS ORDERED: PANTOPRAZOLE SODIUM 40 MG VIAL IVP ONE (23:15)
[2016-10-21] MEDS ORDERED: LIDOCAINE VISCOUS 2% SOLN 15 ML UDC PO ONE (23:15)
[2016-10-21] MEDS ORDERED: ALUMINUM/MAGNESIUM/SIMETH 30 ML CUP PO ONE (23:15)
[2016-10-21] MEDS ORDERED: ASPIRIN 81 MG CHEW TAB PO ONE (23:15)
[2016-10-21 23:20] VITALS: BP 192/82; PULSE 78; RESP 18; O2SAT 98
[2016-10-21] MEDS ORDERED: SODIUM CHLORIDE 0.9% FLUSH 10 ML FLUSH IV FLUSH PRN (23:30)
[2016-10-22] VITALS (15 sets, daily range): BP systolic 146–176; BP diastolic 67–95; PULSE 65–80; RESP 14–21; TEMP 98–98.9; O2SAT 94–98
[2016-10-22 02:19] LABS: CREATINE KINASE 60 U/L (39-308)
[2016-10-22 04:29] LABS: CREATINE KINASE 62 U/L (39-308)
[2016-10-22] MEDS: CARVEDILOL 6.25 MG TAB PO SCH ×2 (06:55→17:59)
[2016-10-22] MEDS: SODIUM CHLORIDE 0.9% FLUSH 10 ML FLUSH IV FLUSH SCH ×2 (08:06→21:07)
[2016-10-22] MEDS ORDERED: SODIUM CHLOR 0.9% 1000 ML INJ 1,000 ML IV SCH (08:42)
[2016-10-22] MEDS ORDERED: DEXTROSE 50% IN WATER 50 ML VIAL(D50) IV PRN (09:00)
[2016-10-22] MEDS ORDERED: GLUCAGON 1 MG/ML VIAL IM/SQ PRN (09:00)
[2016-10-22] MEDS ORDERED: MORPHINE SULFATE 4 MG/ML INJ IV PUSH PRN ×2 (09:15→15:15)
[2016-10-22] MEDS: ASPIRIN 325 MG TAB PO SCH (09:18)
[2016-10-22] MEDS: PRAVASTATIN SOD 80 MG TAB PO SCH (09:18)
[2016-10-22] MEDS: FUROSEMIDE 20 MG TAB PO SCH (09:19)
[2016-10-22] MEDS: POTASSIUM CHLORIDE 10 MEQ CAP PO SCH (09:19)
--- NOTE | 2016-10-22 09:21 | HHI.HP ---
HPI Primary Care Physician Ky Guzman MD Chief Complaint Abdominal pain History of Present Illness This is a 51-year-old male that presents to ED via private vehicle for reevaluation of abdominal pain. He points to epigastric and right upper quadrant indicate where his discomfort has been. It is been there essentially constantly for 2 days. He was seen at [facility] ED for this 2 evenings ago. States he had a CT scan and lab work and was discharged. States the discomfort is still present and in fact is worsened. There is been nausea but no emesis. No constipation or diarrhea. No blood in stool. He does have history of pancreatitis but states the discomfort is usually just on the right side of his abdomen. Eating or drinking has not seemed to worsen the discomfort. Denies chest discomfort. Denies diaphoresis. Maybe a little shortness of breath. No recent travel. Review of Systems General: Patient denies fevers, chills recent, and recent travel HEENT: Patient denies headache, sore throat, difficulty swallowing. Cardiovascular: Has the chest discomfort as mentioned above. Denies sensation of heart beating rapidly or irregularly. No syncope. Denies diaphoresis. Respiratory: Maybe a little bit of shortness of breath. Denies inspirational chest discomfort. Denies coughing wheezing or hemoptysis. GI: Planes of right upper quadrant and epigastric abdominal discomfort. Complains of nausea. Patient denies vomiting, diarrhea, constipation, or bloody stools. Musculoskeletal: Patient denies joint pain or edema. Denies calf pain or edema. Neurovascular: Patient denies numbness, tingling, weakness in extremities. Denies headache. Endocrine: Denies polyuria and polydipsia. Hematologic: Denies easy bruising. Skin: Denies rash or itching. Past Family Social History Allergies: Coded Allergies: No Known Allergies (Verified , 10/21/16) Past Medical History Hypertension, hyperlipidemia, diabetes, tobacco abuse, pancreatitis in 2015 and also states in 2014. Morbid obesity. Denies known CAD. Past Surgical History Hernia repair. Vasectomy. Reported Medications Reported Meds & Active Scripts Active Flomax (Tamsulosin HCl) 0.4 Mg Cap 0.4 Mg PO HS Reported Simvastatin 80 Mg Tab 80 Mg PO DAILY Potassium Chloride ER (Potassium Chloride) 10 Meq Cap 10 Meq PO DAILY Lasix (Furosemide) 20 Mg Tab 20 Mg PO DAILY Metformin ER (Metformin HCl) 1,000 Mg Robbi 1,000 Mg PO BID With evening meal Carvedilol 6.25 Mg Tab 6.25 Mg PO Q12HR Aspirin 325 Mg Tab 325 Mg PO DAILY Active Ordered Medications Current Medications Medications (Trade) Dose Ordered Sig/Trent Route Start Time Stop Time Status Last Admin (NS Flush) 2 ml UNSCH PRN IV FLUSH 10/21/16 23:30 10/21/16 23:26 (NS Flush) 2 ml BID IV FLUSH 10/22/16 09:00 10/22/16 08:06 Carvedilol 6.25 mg 6.25 mg Q12H PO 10/22/16 06:00 10/22/16 06:55 (NS 1000 ml Inj) 1,000 ml @ 125 mls/hr Q8H IV 10/22/16 08:42 10/22/16 16:41 10/22/16 08:56 (Aspirin) 325 mg DAILY PO 10/22/16 09:00 (Lasix) 20 mg DAILY PO 10/22/16 09:00 (KCl) 10 meq DAILY PO 10/22/16 09:00 (Flomax) 0.4 mg HS PO 10/22/16 21:00 (Pravachol) 80 mg DAILY PO 10/22/16 09:00 (D50w (Vial) Inj) 25 ml UNSCH PRN IV 10/22/16 09:00 (Glucagon Inj) 1 mg UNSCH PRN IM/SQ 10/22/16 09:00 Family History Questionable family history of CAD. Social History Patient has tried to reduce his tobacco intake. For the last 3 months he has been smoking one quarter pack of cigarettes daily however for 25 years prior he smoked 1 to 1-1/2 packs of cigarettes daily. Denies alcohol or illicit drugs. 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 Physical Exam Vital Signs Vital Signs Date Time Temp Pulse Resp B/P Pulse Ox O2 Delivery O2 Flow Rate FiO2 10/22/16 07:19 98.9 75 16 165/71 95 10/22/16 04:53 98.0 74 19 172/82 95 10/22/16 00:34 98.1 75 17 146/67 98 10/22/16 00:24 80 14 176/84 97 Room Air 10/22/16 00:05 96 10/21/16 23:20 78 18 192/82 98 Room Air 10/21/16 20:43 97.8 84 16 185/88 96 Room Air Physical Exam GENERAL: This is a well-nourished, well-developed patient, in no apparent distress. Patient speaks in clear complete sentences. Patient is pleasant. Patient is morbidly obese at 154 kg. HEENT: Head is atraumatic and normocephalic. Neck is supple without lymphadenopathy and trachea is midline. No JVD or carotid bruits. CARDIOVASCULAR: Regular rate and rhythm without murmurs, gallops, or rubs. RESPIRATORY: Clear to auscultation. Breath sounds equal bilaterally. No wheezes , rales, or rhonchi. Chest wall is nontender. No use of accessory muscles. GASTROINTESTINAL: Abdomen is tender in the epigastric and right upper quadrant region.. Abdomen soft. Difficult to palpate for organomegaly secondary to body habitus. Normal bowel sounds in all quadrants. MUSCULOSKELETAL: Patient is moving upper and lower extremities freely. No calf tenderness or edema, no Homans sign. Strong pulses in upper and lower extremities. NEUROLOGICAL: Patient is alert and oriented. Cranial nerves 2-12 are grossly intact. No focal deficits and speech is clear. SKIN: No rash and turgor is normal. Laboratory Laboratory Tests Test 10/21/16 10/22/16 10/22/16 22:18 01:20 03:23 White Blood Count 10.6 Red Blood Count 5.78 Hemoglobin 16.8 Hematocrit 48.9 Mean Corpuscular Volume 84.6 Mean Corpuscular Hemoglobin 29.1 Mean Corpuscular Hemoglobin 34.4 Concent Red Cell Distribution Width 13.2 Platelet Count 181 Mean Platelet Volume 9.5 Neutrophils (%) (Auto) 54.8 Lymphocytes (%) (Auto) 33.5 Monocytes (%) (Auto) 8.3 Eosinophils (%) (Auto) 2.7 Basophils (%) (Auto) 0.7 Neutrophils # (Auto) 5.8 Lymphocytes # (Auto) 3.6 Monocytes # (Auto) 0.9 Eosinophils # (Auto) 0.3 Basophils # (Auto) 0.1 CBC Comment DIFF FINAL Differential Comment Prothrombin Time 10.4 Prothromb Time International 0.9 Ratio Activated Partial 25.4 Thromboplast Time Sodium Level 133 Potassium Level 4.1 Chloride Level 96 Carbon Dioxide Level 29.2 Anion Gap 8 Blood Urea Nitrogen 22 Creatinine 0.97 Estimat Glomerular Filtration 81 Rate Random Glucose 319 Calcium Level 9.0 Magnesium Level 1.9 Total Bilirubin 0.7 Aspartate Amino Transf 19 (AST/SGOT) Alanine Aminotransferase 34 (ALT/SGPT) Alkaline Phosphatase 90 Total Creatine Kinase 68 60 62 Troponin I LESS THAN 0.02 LESS THAN 0.02 LESS THAN 0.02 Total Protein 7.8 Albumin 3.3 Lipase 417 Result Diagram: 10/21/16221710/21/162217 Imaging Last 48 hours Impressions Gall Bladder Ultrasound 10/21/162057 Signed Impressions: Service Date/Time: Friday, October 21, 2016 21:47 - CONCLUSION: 1. Fatty liver enlarged to 21 cm. Exam technically difficult due to overlying bowel gas and body habitus. Bimal Orlando MD Chest X-Ray 10/21/162057 Signed Impressions: Service Date/Time: Friday, October 21, 2016 21:02 - CONCLUSION: No acute disease. Bimal Orlando MD Course EKG has sinus rhythm without significant ST segment depressions or elevations. Assessment and Plan Assessment and Plan * Abdominal pain: Patient was admitted to chest pain center however denies any discomfort in his chest. Patient will be evaluated by Dr. Simeon. [facility] His lipase did elevated a little bit in the last 24 hours. We will get that repeated. We will start IV fluids and keep nothing by mouth. Further plan pending Dr. Hernandez's evaluation. * Diabetes: His diabetes is not controlled. He'll be on sliding scale insulin coverage. He is follow diabetic diet and take medication as instructed and follow-up with PCP. * Hypertension: Continue current medication. * Hyperlipidemia: Continue current medication. * Obesity: Patient has been counseled on the importance of diet, exercise, and weight loss. Patient is stable at this time. He is agreeable to this plan. Samuel Patel Oct 22, 2016 09:21
[2016-10-22] MEDS ORDERED: INSULIN ASPART SUPPLEMENTAL SCALE SQ SCH (11:00)
--- NOTE | 2016-10-22 13:16 | HHI.PR ---
Subjective Remarks Pt reports that he started having epigastric abd pain on 10/19/16, which seemed to radiate around the RUQ to his back. There was some nausea but no vomiting He did not feel that this pain was brought on by food intake. He was seen in the ED on 10/[address] scan which did not indicate any particular cause for his abd pain. Pt was discharged to home but the pain reoccurred and he reported back to the ED at [facility] on 10/21 and was admitted to the chest pain center. Pt reports that he had a black BM on 10/21. Denies any NSAID use or alcohol use Pt was ruled out for any acute cardiac process He has continued to have this epigastric/RUQ abd pain He notes some issues with early satiety Some constipation as well. Objective Vitals Vital Signs Date Time Temp Pulse Resp B/P Pulse Ox O2 Delivery O2 Flow Rate FiO2 10/22/16 07:19 98.9 75 16 165/71 95 10/22/16 04:53 98.0 74 19 172/82 95 10/22/16 04:17 73 10/22/16 00:58 75 10/22/16 00:34 98.1 75 17 146/67 98 10/22/16 00:24 80 14 176/84 97 Room Air 10/22/16 00:05 96 10/21/16 23:20 78 18 192/82 98 Room Air 10/21/16 20:43 97.8 84 16 185/88 96 Room Air Result Diagram: 10/21/16 2218 10/21/16 2218 Other Results Laboratory Tests Test 10/21/16 10/22/16 10/22/16 10/22/16 22:18 01:20 03:23 09:00 White Blood Count 10.6 TH/MM3 Red Blood Count 5.78 MIL/MM3 Hemoglobin 16.8 GM/DL Hematocrit 48.9 % Mean Corpuscular Volume 84.6 FL Mean Corpuscular Hemoglobin 29.1 PG Mean Corpuscular Hemoglobin 34.4 % Concent Red Cell Distribution Width 13.2 % Platelet Count 181 TH/MM3 Mean Platelet Volume 9.5 FL Neutrophils (%) (Auto) 54.8 % Lymphocytes (%) (Auto) 33.5 % Monocytes (%) (Auto) 8.3 % Eosinophils (%) (Auto) 2.7 % Basophils (%) (Auto) 0.7 % Neutrophils # (Auto) 5.8 TH/MM3 Lymphocytes # (Auto) 3.6 TH/MM3 Monocytes # (Auto) 0.9 TH/MM3 Eosinophils # (Auto) 0.3 TH/MM3 Basophils # (Auto) 0.1 TH/MM3 CBC Comment DIFF FINAL Differential Comment Prothrombin Time 10.4 SEC Prothromb Time International 0.9 RATIO Ratio Activated Partial 25.4 SEC Thromboplast Time Sodium Level 133 MEQ/L Potassium Level 4.1 MEQ/L Chloride Level 96 MEQ/L Carbon Dioxide Level 29.2 MEQ/L Anion Gap 8 MEQ/L Blood Urea Nitrogen 22 MG/DL Creatinine 0.97 MG/DL Estimat Glomerular Filtration 81 ML/MIN Rate Random Glucose 319 MG/DL Calcium Level 9.0 MG/DL Magnesium Level 1.9 MG/DL Total Bilirubin 0.7 MG/DL Aspartate Amino Transf 19 U/L (AST/SGOT) Alanine Aminotransferase 34 U/L (ALT/SGPT) Alkaline Phosphatase 90 U/L Total Creatine Kinase 68 U/L 60 U/L 62 U/L Troponin I LESS THAN 0.02 LESS THAN 0.02 LESS THAN 0.02 NG/ML NG/ML NG/ML Total Protein 7.8 GM/DL Albumin 3.3 GM/DL Lipase 417 U/L 252 U/L Imaging Last Impressions Gall Bladder Ultrasound 10/21/162057 Signed Impressions: Service Date/Time: Friday, October 21, 2016 21:47 - CONCLUSION: 1. Fatty liver enlarged to 21 cm. Exam technically difficult due to overlying bowel gas and body habitus. Bimal Orlando MD Chest X-Ray 10/21/162057 Signed Impressions: Service Date/Time: Friday, October 21, 2016 21:02 - CONCLUSION: No acute disease. Bimal Orlando MD Objective Remarks General: NAD, AAOx3 Chest: CTA bilaterally Cardiac: Regular Abd: +BS, soft, obese, epigastric to RUQ tenderness, no guarding or rebound Ext: No edema, some chronic stasis skin changes. A/P Problem List: (1) Epigastric abdominal pain Status: Chronic Plan: - Pt is a 51 y/o obese male with NIDDM, HTN, and hyperlipidemia who [place] [facility] [place] with complaints of epigastric abd pain/lower chest pain - Pt had a CT Abd/pelvis (10/20) --> Hepatomegaly and hepatic steatosis, atherosclerotic calcifications, right adrenal myolipomas, mild skin thickening and subcutaneous fat stranding right anterior abdominal wall can be seen with a cellulitis. - Pt was discharged from the ED but the pain returned and he presented to the ED at [facility] on 10/21/16 and was admitted to the chest pain center. - CE were negative. - His lipase was noted to be mildly elevated at 417 on 10/21 but otherwise his LFTs were stable. - Abd US (10/21) --> Fatty liver enlarged to 21 cm. Exam technically difficult due to overlying bowel gas and body habitus. - Repeat Lipase on 10/22 has normalized to 252. - He reports having had one melanotic stool yesterday. - No reported alcohol use or NSAIDs use - He does smoke 1/2 ppd of cigarettes - Etiology for his abdominal pain is unclear, possible PUD/duodenal ulcer vs. gastroparesis vs. cholecystitis vs. pancreatitis vs. other. - Keep pt NPO for now - Cont. IVF - Try to get his bowels moving, add Lactulose and Colace - Add Protonix 40mg IV BID - Pain control PRN - Antiemetics PRN - Consult GI, pt may need an EGD to further evaluate this abd pain. - Supportive care - DVT prophylaxis with SCDs (2) Diabetes mellitus type 2, insulin dependent Status: Chronic Plan: - NovoLog SSI - Pt is reportedly on NovoLog 24 units in AM, 20 units at lunch, and 20 units in PM and Tresiba 160 units HS at home. - Accu checks (3) Hypertension Status: Chronic Plan: - Home meds continued, Coreg 6.25 po BID - Monitor (4) Hyperlipidemia Status: Chronic Plan: - Cont. home meds (5) BPH (benign prostatic hypertrophy) Status: Chronic Plan: - Cont. Flomax Assessment and Plan Patient examined. Assessment and plan formulated with Tayla Marques PA-C. I agree with the above. epigastric and bilateral upper quad pain..radiating through to midback. some nausea. denies assoc with food. describes a melanotic stool yesterday. denies nsaid or etoh use. hx pancreatitis unknown orignin. lipase was 400s but nml now. ct a/p and gb u/s unremarkable for source of pain. discussed with GI..EGD tomorrow and mrcp. prn pain and nausea control. seen by cardiology in center and not felt to be cardiac. Tayla Marques Oct 22, 2016 13:16 Kvng Hernandez MD Oct 22, 2016 16:33
--- NOTE | 2016-10-22 13:32 | EKG ---
Date Performed: 10/22/2016 Time Performed: 04:49:01 PTAGE: 51 years EKG: Sinus rhythm MODERATE INTRAVENTRICULAR CONDUCTION DELAY BORDERLINE ECG PREVIOUS TRACING : 10/22/2016 01.53 Since previous tracing, no significant change noted DOCTOR: Kvng Simeon Interpretating Date/Time 10/26/2016 07:58:34
--- NOTE | 2016-10-22 13:34 | EKG ---
Date Performed: 10/22/2016 Time Performed: 01:53:38 PTAGE: 51 years EKG: Sinus rhythm MODERATE INTRAVENTRICULAR CONDUCTION DELAY BORDERLINE ECG PREVIOUS TRACING : 10/21/2016 22.07 Since previous tracing, no significant change noted DOCTOR: Kvng Simeon Interpretating Date/Time 10/22/2016 13:32:38
--- NOTE | 2016-10-22 13:35 | EKG ---
Date Performed: 10/21/2016 Time Performed: 22:07:09 PTAGE: 51 years EKG: Sinus rhythm MODERATE INTRAVENTRICULAR CONDUCTION DELAY BORDERLINE ECG PREVIOUS TRACING : 10/20/2016 20.57 DOCTOR: Kvng Simeon Interpretating Date/Time 10/22/2016 13:35:19
[2016-10-22] MEDS ORDERED: MORPHINE SULFATE 4 MG/ML INJ IV PUSH ONE (13:45)
[2016-10-22] MEDS ORDERED: ONDANSETRON HCL 4 MG/2 ML VIAL IV PUSH ONE (13:45)
[2016-10-22] MEDS ORDERED: ONDANSETRON HCL 4 MG/2 ML VIAL IV PRN (14:00)
[2016-10-22] MEDS: SODIUM CHLOR 0.9% 1000 ML INJ 1,000 ML IV SCH (14:15)
--- NOTE | 2016-10-22 14:51 | PD.CONS ---
HPI History of Present Illness This is a 51 year old male patient who has been admitted because of left upper quadrant abdominal pain radiating to his back. The pain is severe, dull and constant. Improved with pain meds. No associated nausea or vomiting. No hematemesis. He reports passing a hard dark stool a few days ago. No history of GI bleeding. He reports two previous episodes of pancreatitis, but he does not drink alcohol. He is diabetic and takes metformin. Denies fever or chills. Never had gallbladder problems. Reports having EGD and Colonoscopy in 2015. ROS: no headache, sore throat, earache. No cough or shortness of breath. Otherwise complete ROS is negative. PFSH Past Medical History diabetes on metformin hypertension Past Surgical History hernia repair in upper right abdomen Coded Allergies: No Known Allergies (Verified , 10/21/16) Medications metformin Family History No cancer of stomach or colon Social History No etoh or drugs. 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 Exam Vitals I&O Vital Signs Date Time Temp Pulse Resp B/P Pulse Ox O2 Delivery O2 Flow Rate FiO2 10/22/16 11:45 98.0 73 15 168/95 94 10/22/16 08:13 94 21 10/22/16 07:19 98.9 75 16 165/71 95 10/22/16 04:53 98.0 74 19 172/82 95 10/22/16 04:17 73 10/22/16 00:58 75 10/22/16 00:34 98.1 75 17 146/67 98 10/22/16 00:24 80 14 176/84 97 Room Air 10/22/16 00:05 96 10/21/16 23:20 78 18 192/82 98 Room Air 10/21/16 20:43 97.8 84 16 185/88 96 Room Air Laboratory Test 10/21/16 10/22/16 10/22/16 10/22/16 22:18 01:20 03:23 09:00 White Blood Count 10.6 TH/MM3 Red Blood Count 5.78 MIL/MM3 Hemoglobin 16.8 GM/DL Hematocrit 48.9 % Mean Corpuscular Volume 84.6 FL Mean Corpuscular Hemoglobin 29.1 PG Mean Corpuscular Hemoglobin 34.4 % Concent Red Cell Distribution Width 13.2 % Platelet Count 181 TH/MM3 Mean Platelet Volume 9.5 FL Neutrophils (%) (Auto) 54.8 % Lymphocytes (%) (Auto) 33.5 % Monocytes (%) (Auto) 8.3 % Eosinophils (%) (Auto) 2.7 % Basophils (%) (Auto) 0.7 % Neutrophils # (Auto) 5.8 TH/MM3 Lymphocytes # (Auto) 3.6 TH/MM3 Monocytes # (Auto) 0.9 TH/MM3 Eosinophils # (Auto) 0.3 TH/MM3 Basophils # (Auto) 0.1 TH/MM3 CBC Comment DIFF FINAL Differential Comment Prothrombin Time 10.4 SEC Prothromb Time International 0.9 RATIO Ratio Activated Partial 25.4 SEC Thromboplast Time Sodium Level 133 MEQ/L Potassium Level 4.1 MEQ/L Chloride Level 96 MEQ/L Carbon Dioxide Level 29.2 MEQ/L Anion Gap 8 MEQ/L Blood Urea Nitrogen 22 MG/DL Creatinine 0.97 MG/DL Estimat Glomerular Filtration 81 ML/MIN Rate Random Glucose 319 MG/DL Calcium Level 9.0 MG/DL Magnesium Level 1.9 MG/DL Total Bilirubin 0.7 MG/DL Aspartate Amino Transf 19 U/L (AST/SGOT) Alanine Aminotransferase 34 U/L (ALT/SGPT) Alkaline Phosphatase 90 U/L Total Creatine Kinase 68 U/L 60 U/L 62 U/L Troponin I LESS THAN 0.02 LESS THAN 0.02 LESS THAN 0.02 NG/ML NG/ML NG/ML Total Protein 7.8 GM/DL Albumin 3.3 GM/DL Lipase 417 U/L 252 U/L Physical Examination HEENT: Pupils round and reactive to light; normocephalic; atraumatic; no jaundice. Throat is clear. NECK: Neck is supple, no JVD, no lymphadenopathy. CHEST: Chest is clear to auscultation and percussion. CARDIAC: Regular rate and rhythm with no murmur gallop or rubs. ABDOMEN: Soft, nondistended, nontender; no hepatosplenomegaly; bowel sounds are present in all four quadrants. EXTREMITIES: No clubbing, cyanosis, or edema. SKIN: Normal; stasis dermatitis on lower legs no jaundice. 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 Mood: normal Assessment and Plan Plan Impression: Elevated lipase suggests another episode of pancreatitis. Mild. As he is not a drinker, he could be having gallstone pancreatitis. Also triglyceride elevation should be sought. Rule out PUD as cause for pain and pancreatitis. Plan: US is not determinate. He does have fatty liver. Gallbladder not reported, but study limited due to body habitus. CT abdomen and pelvis with IV and PO contrast. EGD tomorrow. MRCP may be needed to rule out gallbladder disease, CBD stone. Triglyceride level. Further recommendations after above. Clear liquid diet. Juan J Andrew MD Oct 22, 2016 14:51
[2016-10-22] MEDS: LACTULOSE SYRUP 20 GM/30 ML CUP PO SCH (14:59)
[2016-10-22] MEDS: DOCUSATE SODIUM 100 MG CAP PO SCH ×2 (14:59→21:05)
[2016-10-22] MEDS ORDERED: DEXTROSE 50% IN WATER 50 ML VIAL(D50) IV PUSH PRN (15:45)
[2016-10-22] MEDS ORDERED: GLUCAGON 1 MG/ML VIAL OTHER PRN (15:45)
[2016-10-22] MEDS ORDERED: DIATRIZOATE MEGLUM/DIATRIZOATE SOD 9 ML CUP PO ONE (15:45)
[2016-10-22] MEDS: PANTOPRAZOLE SODIUM 40 MG VIAL IV PUSH SCH ×2 (16:04→21:06)
[2016-10-22] MEDS: INSULIN ASPART SUPPLEMENTAL SCALE SQ SCH ×2 (16:42→21:08)
[2016-10-22] MEDS: TAMSULOSIN HCL 0.4 MG CAP PO SCH (21:05)
[2016-10-23] VITALS (12 sets, daily range): BP systolic 111–159; BP diastolic 52–77; PULSE 63–95; RESP 18–21; TEMP 97.8–98.9; O2SAT 96–99
[2016-10-23] MEDS: SODIUM CHLOR 0.9% 1000 ML INJ 1,000 ML IV SCH ×3 (00:50→22:15)
[2016-10-23] MEDS: CARVEDILOL 6.25 MG TAB PO SCH ×2 (06:02→18:46)
[2016-10-23] MEDS: INSULIN ASPART SUPPLEMENTAL SCALE SQ SCH ×4 (06:18→22:16)
[2016-10-23 06:21] LABS: AUTOMATED NEUTROPHIL # 4.7 TH/MM3 (1.8-7.7); BASOPHIL # 0.1 TH/MM3 (0-0.2); BASOPHIL % 0.6 % (0.0-2.0); EOSINOPHIL # 0.3 TH/MM3 (0-0.4); EOSINOPHIL % 3.4 % (0.0-4.0); HEMATOCRIT 46.7 % (39.0-51.0); HEMO FLAGS DIFF FINAL; LYMPHOCYTE # 2.8 TH/MM3 (1.0-4.8); MEAN CELL VOLUME 84.8 FL (80.0-100.0); MEAN CORPUSCULAR HEMOGLOBIN 28.8 PG (27.0-34.0); MEAN CORPUSCULAR HGB CONC 33.9 % (32.0-36.0); MONO % 7.2 % (0.0-8.0); NEUT % 55.8 % (16.0-70.0); PLATELET COUNT 175 TH/MM3 (150-450); RED BLOOD COUNT 5.51 MIL/MM3 (4.50-5.90); RED CELL DISTRIBUTION WIDTH 13.3 % (11.6-17.2); WHITE BLOOD COUNT 8.4 TH/MM3 (4.0-11.0)
[2016-10-23 06:44] LABS: ALKALINE PHOSPHATASE 63 U/L (45-117); ALT (GPT) 34 U/L (12-78); ANION GAP 6 MEQ/L (5-15); AST (GOT) 27 U/L (15-37); BICARBONATE 27.6 MEQ/L (21.0-32.0); BLOOD UREA NITROGEN 17 MG/DL (7-18); CHLORIDE 102 MEQ/L (98-107); GLOMERULAR FILTRATION RATE 104 ML/MIN (>89); POTASSIUM 4.1 MEQ/L (3.5-5.1); SODIUM (NA) 136 MEQ/L (136-145)
[2016-10-23] MEDS ORDERED: INSULIN HUMAN REGULAR 1,000 UNITS/10 ML VIAL SQ ONE (08:44)
[2016-10-23] MEDS: ASPIRIN 325 MG TAB PO SCH (09:00)
[2016-10-23] MEDS ORDERED: PROPOFOL 200 MG/20 ML AMP IV PUSH ONE (09:16)
[2016-10-23] MEDS ORDERED: DO NOT ADM ANY ANTICOAGULANT DRUGS PRN (09:26)
--- NOTE | 2016-10-23 09:31 | HHI.GIFU ---
Subjective Remarks egd performed and biopsy taken from antral gastritis. 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 No ulceration seen. Objective Vitals I&O Vital Signs Date Time Temp Pulse Resp B/P Pulse Ox O2 Delivery O2 Flow Rate FiO2 10/23/16 08:14 98.9 68 20 159/77 97 10/23/16 05:03 98.9 73 18 149/68 99 10/23/16 05:01 67 10/23/16 04:25 71 10/23/16 00:44 97.8 69 18 146/67 96 10/22/16 20:27 98.0 70 21 169/89 95 10/22/16 19:12 95 21 10/22/16 15:30 98.8 68 16 168/84 96 10/22/16 12:00 72 10/22/16 11:45 98.0 73 15 168/95 94 Laboratory Laboratory Tests Test 10/23/16 06:11 White Blood Count 8.4 Red Blood Count 5.51 Hemoglobin 15.9 Hematocrit 46.7 Mean Corpuscular Volume 84.8 Mean Corpuscular Hemoglobin 28.8 Mean Corpuscular Hemoglobin 33.9 Concent Red Cell Distribution Width 13.3 Platelet Count 175 Mean Platelet Volume 9.1 Neutrophils (%) (Auto) 55.8 Lymphocytes (%) (Auto) 33.0 Monocytes (%) (Auto) 7.2 Eosinophils (%) (Auto) 3.4 Basophils (%) (Auto) 0.6 Neutrophils # (Auto) 4.7 Lymphocytes # (Auto) 2.8 Monocytes # (Auto) 0.6 Eosinophils # (Auto) 0.3 Basophils # (Auto) 0.1 CBC Comment DIFF FINAL Differential Comment Sodium Level 136 Potassium Level 4.1 Chloride Level 102 Carbon Dioxide Level 27.6 Anion Gap 6 Blood Urea Nitrogen 17 Creatinine 0.78 Estimat Glomerular Filtration 104 Rate Random Glucose 205 Calcium Level 8.5 Total Bilirubin 1.0 Aspartate Amino Transf 27 (AST/SGOT) Alanine Aminotransferase 34 (ALT/SGPT) Alkaline Phosphatase 63 Total Protein 7.2 Albumin 3.0 Physical Exam HEENT: Pupils round and reactive to light; normocephalic; atraumatic; no jaundice. Throat is clear. NECK: Neck is supple, no JVD, no lymphadenopathy. CHEST: Chest is clear to auscultation and percussion. CARDIAC: Regular rate and rhythm with no murmur gallop or rubs. ABDOMEN: Soft, nondistended, nontender; no hepatosplenomegaly; bowel sounds are present in all four quadrants. EXTREMITIES: No clubbing, cyanosis, or edema. SKIN: Normal; no rash; no jaundice. 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 Assessment and Plan Plan Impression: Elevated lipase suggests another episode of pancreatitis. Mild. As he is not a drinker, he could be having gallstone pancreatitis. Also triglyceride elevation should be sought. Rule out PUD as cause for pain and pancreatitis. EGD negative for PUD. Mild gastritis and incidental AVMs seen. Plan: Await MRCP today. US is not determinate. He does have fatty liver. Gallbladder not reported, but study limited due to body habitus. CT abdomen and pelvis with IV and PO contrast. EGD tomorrow. MRCP may be needed to rule out gallbladder disease, CBD stone. Triglyceride level. Further recommendations after above. Clear liquid diet. Juan J Andrew MD Oct 23, 2016 09:31
--- NOTE | 2016-10-23 10:39 | HHI.PR ---
Subjective Remarks Pt just returned from his EGD where he had noted gastritis and gastric AVM He reports that his pain is about the same as yesterday No BM yet. +Flatus Objective Vitals Vital Signs Date Time Temp Pulse Resp B/P Pulse Ox O2 Delivery O2 Flow Rate FiO2 10/23/16 09:45 67 16 140/81 98 Nasal Cannula 3 10/23/16 09:30 70 16 163/82 96 Nasal Cannula 3 10/23/16 09:28 97.8 74 16 163/82 95 Nasal Cannula 3 10/23/16 08:14 98.9 68 20 159/77 97 10/23/16 05:03 98.9 73 18 149/68 99 10/23/16 05:01 67 10/23/16 04:25 71 10/23/16 00:44 97.8 69 18 146/67 96 10/22/16 20:27 98.0 70 21 169/89 95 10/22/16 19:12 95 21 10/22/16 15:30 98.8 68 16 168/84 96 10/22/16 12:00 72 10/22/16 11:45 98.0 73 15 168/95 94 Result Diagram: 10/23/16 0611 10/23/16 0611 Other Results Laboratory Tests Test 10/21/16 10/22/16 10/22/16 10/22/16 22:18 01:20 03:23 09:00 White Blood Count 10.6 TH/MM3 Red Blood Count 5.78 MIL/MM3 Hemoglobin 16.8 GM/DL Hematocrit 48.9 % Mean Corpuscular Volume 84.6 FL Mean Corpuscular Hemoglobin 29.1 PG Mean Corpuscular Hemoglobin 34.4 % Concent Red Cell Distribution Width 13.2 % Platelet Count 181 TH/MM3 Mean Platelet Volume 9.5 FL Neutrophils (%) (Auto) 54.8 % Lymphocytes (%) (Auto) 33.5 % Monocytes (%) (Auto) 8.3 % Eosinophils (%) (Auto) 2.7 % Basophils (%) (Auto) 0.7 % Neutrophils # (Auto) 5.8 TH/MM3 Lymphocytes # (Auto) 3.6 TH/MM3 Monocytes # (Auto) 0.9 TH/MM3 Eosinophils # (Auto) 0.3 TH/MM3 Basophils # (Auto) 0.1 TH/MM3 CBC Comment DIFF FINAL Differential Comment Prothrombin Time 10.4 SEC Prothromb Time International 0.9 RATIO Ratio Activated Partial 25.4 SEC Thromboplast Time Sodium Level 133 MEQ/L Potassium Level 4.1 MEQ/L Chloride Level 96 MEQ/L Carbon Dioxide Level 29.2 MEQ/L Anion Gap 8 MEQ/L Blood Urea Nitrogen 22 MG/DL Creatinine 0.97 MG/DL Estimat Glomerular Filtration 81 ML/MIN Rate Random Glucose 319 MG/DL Calcium Level 9.0 MG/DL Magnesium Level 1.9 MG/DL Total Bilirubin 0.7 MG/DL Aspartate Amino Transf 19 U/L (AST/SGOT) Alanine Aminotransferase 34 U/L (ALT/SGPT) Alkaline Phosphatase 90 U/L Total Creatine Kinase 68 U/L 60 U/L 62 U/L Troponin I LESS THAN 0.02 LESS THAN 0.02 LESS THAN 0.02 NG/ML NG/ML NG/ML Total Protein 7.8 GM/DL Albumin 3.3 GM/DL Lipase 417 U/L 252 U/L Triglycerides Level 104 MG/DL Test 10/23/16 06:11 White Blood Count 8.4 TH/MM3 Red Blood Count 5.51 MIL/MM3 Hemoglobin 15.9 GM/DL Hematocrit 46.7 % Mean Corpuscular Volume 84.8 FL Mean Corpuscular Hemoglobin 28.8 PG Mean Corpuscular Hemoglobin 33.9 % Concent Red Cell Distribution Width 13.3 % Platelet Count 175 TH/MM3 Mean Platelet Volume 9.1 FL Neutrophils (%) (Auto) 55.8 % Lymphocytes (%) (Auto) 33.0 % Monocytes (%) (Auto) 7.2 % Eosinophils (%) (Auto) 3.4 % Basophils (%) (Auto) 0.6 % Neutrophils # (Auto) 4.7 TH/MM3 Lymphocytes # (Auto) 2.8 TH/MM3 Monocytes # (Auto) 0.6 TH/MM3 Eosinophils # (Auto) 0.3 TH/MM3 Basophils # (Auto) 0.1 TH/MM3 CBC Comment DIFF FINAL Differential Comment Sodium Level 136 MEQ/L Potassium Level 4.1 MEQ/L Chloride Level 102 MEQ/L Carbon Dioxide Level 27.6 MEQ/L Anion Gap 6 MEQ/L Blood Urea Nitrogen 17 MG/DL Creatinine 0.78 MG/DL Estimat Glomerular Filtration 104 ML/MIN Rate Random Glucose 205 MG/DL Calcium Level 8.5 MG/DL Total Bilirubin 1.0 MG/DL Aspartate Amino Transf 27 U/L (AST/SGOT) Alanine Aminotransferase 34 U/L (ALT/SGPT) Alkaline Phosphatase 63 U/L Total Protein 7.2 GM/DL Albumin 3.0 GM/DL Imaging Last Impressions Gall Bladder Ultrasound 10/21/162057 Signed Impressions: Service Date/Time: Friday, October 21, 2016 21:47 - CONCLUSION: 1. Fatty liver enlarged to 21 cm. Exam technically difficult due to overlying bowel gas and body habitus. Bimal Orlando MD Chest X-Ray 10/21/162057 Signed Impressions: Service Date/Time: Friday, October 21, 2016 21:02 - CONCLUSION: No acute disease. Bimal Orlando MD Objective Remarks General: NAD, AAOx3 Chest: CTA bilaterally Cardiac: Regular Abd: +BS, soft, obese, epigastric to RUQ tenderness, no guarding or rebound Ext: No edema, some chronic stasis skin changes. A/P Problem List: (1) Epigastric abdominal pain Status: Chronic Plan: - Pt is a 51 y/o obese male with NIDDM, HTN, and hyperlipidemia who presented to the ED at [facility] on 10/20/16 with complaints of epigastric abd pain/lower chest pain - Pt had a CT Abd/pelvis (10/20) --> Hepatomegaly and hepatic steatosis, atherosclerotic calcifications, right adrenal myolipomas, mild skin thickening and subcutaneous fat stranding right anterior abdominal wall can be seen with a cellulitis. - Pt was discharged from the ED but the pain returned and he presented to the ED at [facility] on 10/21/16 and was admitted to the chest pain center. - CE were negative. - His lipase was noted to be mildly elevated at 417 on 10/21 but otherwise his LFTs were stable. - Abd US (10/21) --> Fatty liver enlarged to 21 cm. Exam technically difficult due to overlying bowel gas and body habitus. - Repeat Lipase on 10/22 has normalized to 252. - He reports having had one melanotic stool the day prior to admission. - No reported alcohol use or NSAIDs use - Cont. IVF - Cont. Lactulose and Colace - Cont. Protonix 40mg IV BID - Pain control PRN - Antiemetics PRN - Pt underwent EGD (10/23/16) --> gastritis and gastric AVM s/p cautery. - Pt still having abd pain, could be secondary to gastroparesis given his poorly controlled diabetes. Start Reglan 5mg IV Q8H. - MRCP is pending. - Supportive care - DVT prophylaxis with SCDs (2) Diabetes mellitus type 2, insulin dependent Status: Chronic Plan: - NovoLog SSI - Pt is reportedly on NovoLog 24 units in AM, 20 units at lunch, and 20 units in PM and Tresiba 160 units HS at home. - Accu checks (3) Hypertension Status: Chronic Plan: - Home meds continued, Coreg 6.25 po BID - Monitor (4) Hyperlipidemia Status: Chronic Plan: - Cont. home meds (5) BPH (benign prostatic hypertrophy) Status: Chronic Plan: - Cont. Flomax Assessment and Plan Patient examined. Assessment and plan formulated with Tayla Marques PA-C. I agree with the above. w/up so far really not consistent with hepatobiliary or pancreatic source of pain. egd noted and discussed with GI...We will emperically give trial of iv reglan and simethicone for possible gastroparesis. unable to do GES today. Tayla Marques Oct 23, 2016 10:39 Kvng Hernandez MD Oct 23, 2016 21:24
[2016-10-23] MEDS: SODIUM CHLORIDE 0.9% FLUSH 10 ML FLUSH IV FLUSH SCH ×2 (10:55→21:00)
[2016-10-23] MEDS: PANTOPRAZOLE SODIUM 40 MG VIAL IV PUSH SCH ×2 (10:56→22:16)
[2016-10-23] MEDS: LACTULOSE SYRUP 20 GM/30 ML CUP PO SCH (10:57)
[2016-10-23] MEDS: PRAVASTATIN SOD 80 MG TAB PO SCH (10:57)
[2016-10-23] MEDS: DOCUSATE SODIUM 100 MG CAP PO SCH ×2 (10:59→22:17)
[2016-10-23] MEDS: FUROSEMIDE 20 MG TAB PO SCH (10:59)
[2016-10-23] MEDS: POTASSIUM CHLORIDE 10 MEQ CAP PO SCH (13:33)
[2016-10-23] MEDS: SIMETHICONE 125 MG CHEWABLE TAB PO SCH ×2 (14:23→22:17)
[2016-10-23] MEDS: METOCLOPRAMIDE HCL 10 MG/2 ML VIAL IV PUSH SCH ×2 (14:24→22:17)
--- NOTE | 2016-10-23 14:43 | RADRPT ---
EXAM DATE/TIME: 10/23/2016 11:47 [place] COMPARISON: MRCP W/O CONTRAST, March 16, 2015, 13:09. INDICATIONS : Pancreatitis. MEDICAL HISTORY : Hypertension. Diabetes mellitus type 2. SURGICAL HISTORY : Inguinal hernia repair. ENCOUNTER: Initial ACUITY: 1 day PAIN SCORE: 4/10 LOCATION: Upper abdomen TECHNIQUE: Multiplanar, multisequence magnetic resonance imaging of the abdomen was performed. High-resolution 3D dataset was utilized to reconstruct maximum-intensity projection (MIP) images. FINDINGS: INTRAHEPATIC BILE DUCTS: Mild decrease signal is identified on opposed phased imaging. EXTRAHEPATIC BILE DUCTS: The common bile duct measures 5 mm. No stone or filling defect is identified. GALLBLADDER: No stones, wall thickening, or pericholecystic fluid. LIVER: Decrease signal intensity is noted on opposed phased imaging. No concerning liver lesion is identifie d on this non-contrast exam. PANCREAS: The main pancreatic duct is normal in size. There is no significant anatomical variant. Signal inte nsity is within normal limits. No mass is visualized on this non-contrast exam. OTHER: The remaining visualized structures demonstrate no acute abnormality on this non-contrast exam. CONCLUSION: 1. Mild hepatic steatosis. 2. No evidence of acute pancreatitis or biliary obstructive disease. Amol Sterling MD on October 23, 2016 at 14:38 Board Certified Radiologist. This report was verified electronically.
[2016-10-23] MEDS: TAMSULOSIN HCL 0.4 MG CAP PO SCH (21:00)
[2016-10-24] VITALS (9 sets, daily range): BP systolic 127–142; BP diastolic 57–69; PULSE 60–66; RESP 18–20; TEMP 96.8–98.4; O2SAT 96–97
[2016-10-24] MEDS: METOCLOPRAMIDE HCL 10 MG/2 ML VIAL IV PUSH SCH ×3 (05:39→22:39)
[2016-10-24] MEDS: SIMETHICONE 125 MG CHEWABLE TAB PO SCH ×3 (05:39→22:39)
[2016-10-24] MEDS: CARVEDILOL 6.25 MG TAB PO SCH ×2 (05:40→17:04)
[2016-10-24] MEDS: SODIUM CHLOR 0.9% 1000 ML INJ 1,000 ML IV SCH ×2 (06:29→09:45)
[2016-10-24] MEDS: INSULIN ASPART SUPPLEMENTAL SCALE SQ SCH ×4 (06:29→23:08)
[2016-10-24] MEDS: PANTOPRAZOLE SODIUM 40 MG VIAL IV PUSH SCH ×2 (09:44→22:40)
[2016-10-24] MEDS: SODIUM CHLORIDE 0.9% FLUSH 10 ML FLUSH IV FLUSH SCH ×2 (09:44→21:00)
[2016-10-24] MEDS: FUROSEMIDE 20 MG TAB PO SCH (09:45)
[2016-10-24] MEDS: DOCUSATE SODIUM 100 MG CAP PO SCH ×2 (09:45→22:39)
[2016-10-24] MEDS: ASPIRIN 325 MG TAB PO SCH (09:45)
[2016-10-24] MEDS: LACTULOSE SYRUP 20 GM/30 ML CUP PO SCH (09:45)
[2016-10-24] MEDS: POTASSIUM CHLORIDE 10 MEQ CAP PO SCH (09:45)
[2016-10-24] MEDS: PRAVASTATIN SOD 80 MG TAB PO SCH (09:45)
--- NOTE | 2016-10-24 14:28 | HHI.PR ---
Subjective Remarks feels better. bryan liquids Objective Vitals heart reg lung cta abd s/nt ext no edema Vital Signs Date Time Temp Pulse Resp B/P Pulse Ox O2 Delivery O2 Flow Rate FiO2 10/24/16 11:50 98.2 60 20 128/62 96 10/24/16 09:23 97.8 62 18 127/57 96 10/24/16 08:20 97 21 10/24/16 07:00 63 10/24/16 04:11 98.4 62 18 136/69 97 10/24/16 03:11 62 10/23/16 23:20 98.0 63 21 137/65 99 10/23/16 21:08 97 Nasal Cannula 2.00 10/23/16 19:48 98.2 69 20 111/52 97 10/23/16 19:36 73 10/23/16 18:15 72 10/23/16 17:16 98.2 70 18 151/77 96 10/23/16 10/23/16 10/24/16 15:00 23:00 07:00 Intake Total 300 ml Balance 300 ml Other 300 ml Result Diagram: 10/23/1611 10/23/16610 Imaging Last Impressions Gall Bladder Ultrasound 10/21/162057 Signed Impressions: Service Date/Time: Friday, October 21, 2016 21:47 - CONCLUSION: 1. Fatty liver enlarged to 21 cm. Exam technically difficult due to overlying bowel gas and body habitus. Bimal Orlando MD Chest X-Ray 10/21/162057 Signed Impressions: Service Date/Time: Friday, October 21, 2016 21:02 - CONCLUSION: No acute disease. Bimal Orlando MD A/P Problem List: (1) Epigastric abdominal pain Status: Chronic Plan: - Pt is a 51 y/o obese male with NIDDM, HTN, and hyperlipidemia who presented to the ED at [facility] on 10/20/16 with complaints of epigastric abd pain/lower chest pain - Pt had a CT Abd/pelvis (10/20) --> Hepatomegaly and hepatic steatosis, atherosclerotic calcifications, right adrenal myolipomas, mild skin thickening and subcutaneous fat stranding right anterior abdominal wall can be seen with a cellulitis. - Pt was discharged from the ED but the pain returned and he presented to the ED at [facility] on 10/21/16 and was admitted to the chest pain center. - CE were negative. - His lipase was noted to be mildly elevated at 417 on 10/21 but otherwise his LFTs were stable. - Abd US (10/21) --> Fatty liver enlarged to 21 cm. Exam technically difficult due to overlying bowel gas and body habitus. - Repeat Lipase on 10/22 has normalized to 252. - He reports having had one melanotic stool the day prior to admission. - No reported alcohol use or NSAIDs use - Pt underwent EGD (10/23/16) --> gastritis and gastric AVM s/p cautery. -MRCP. no evidence for pancreatitis or hepatobiliary dz. unable to get GES now. trial of reglan for possible gastroparesis seems to be working. advance diet and if doing well then d/c on reglan and f/u. (2) Diabetes mellitus type 2, insulin dependent Status: Chronic Plan: - NovoLog SSI - Pt is reportedly on NovoLog 24 units in AM, 20 units at lunch, and 20 units in PM and Tresiba 160 units HS at home. - Accu checks (3) Hypertension Status: Chronic Plan: - Home meds continued, Coreg 6.25 po BID - Monitor (4) Hyperlipidemia Status: Chronic Plan: - Cont. home meds (5) BPH (benign prostatic hypertrophy) Status: Chronic Plan: - Cont. Flomax Kvng Hernandez MD Oct 24, 2016 14:28
--- NOTE | 2016-10-24 16:04 | HHI.GIFU ---
Subjective Remarks Pt sitting in bed eating crackers. Feels better. Pain improved no nausea. wants to go home. (Tanvi Cordero) Objective Vitals I&O Vital Signs Date Time Temp Pulse Resp B/P Pulse Ox O2 Delivery O2 Flow Rate FiO2 10/24/16 11:50 98.2 60 20 128/62 96 10/24/16 09:23 97.8 62 18 127/57 96 10/24/16 08:20 97 21 10/24/16 07:00 63 10/24/16 04:11 98.4 62 18 136/69 97 10/24/16 03:11 62 10/23/16 23:20 98.0 63 21 137/65 99 10/23/16 21:08 97 Nasal Cannula 2.00 10/23/16 19:48 98.2 69 20 111/52 97 10/23/16 19:36 73 10/23/16 18:15 72 10/23/16 17:16 98.2 70 18 151/77 96 I/O 10/23/16 10/23/16 10/23/16 10/24/16 10/24/16 10/24/16 07:00 15:00 23:00 07:00 15:00 23:00 Intake Total 300 ml 382 ml Balance 300 ml 382 ml Intake IV Total 382 ml Other 300 ml Physical Exam HEENT: PERRL; normocephalic; atraumatic; no jaundice. CHEST: wheezes CARDIAC: RRR ABDOMEN: Soft, obese, nontender; no hepatosplenomegaly; bowel sounds are present in all four quadrants. EXTREMITIES: No clubbing, cyanosis, or edema. SKIN: Normal; no rash; no jaundice. 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 (Tanvi Cordero) Assessment and Plan Plan ASSESSMENT - Elevated lipase- suggests another episode of pancreatitis. Mild. As he is not a drinker, he could be having gallstone pancreatitis. triglycerides ok EGD negative for PUD. Mild gastritis and incidental AVMs seen & cauterized. MRCP neg. Fatty liver per US, GB not reported but limited study d/t body habitus. CT ok. Cannot have GES yet. Plan: - IGG4 before outpatient f/u - [facility] - f/u with GI as outpatient - GES as outpatient - okay to DC from GI standpoint This pt seen by Dr Chowdhury and myself and this note is written on his behalf ( Tanvi Cordero) Plan Patient was seen and examined, agree with above-noted and plan, pancreatitis resolving, await IgG4, tolerating food okay, okay to be discharged home and follow-up as an outpatient. (Miguel Chowdhury MD) Tanvi Cordero Oct 24, 2016 16:04 Miguel Chowdhury MD Oct 24, 2016 17:08
[2016-10-24] MEDS: TAMSULOSIN HCL 0.4 MG CAP PO SCH (22:39)
[2016-10-25] VITALS: BP 145/64; PULSE 64; RESP 20; TEMP 96.4; O2SAT 96
[2016-10-25 04:00] VITALS: BP 139/60; PULSE 65; RESP 18; TEMP 97; O2SAT 97
[2016-10-25] MEDS: SIMETHICONE 125 MG CHEWABLE TAB PO SCH ×2 (05:33→14:00)
[2016-10-25] MEDS: CARVEDILOL 6.25 MG TAB PO SCH (05:34)
[2016-10-25] MEDS: SODIUM CHLOR 0.9% 1000 ML INJ 1,000 ML IV SCH ×2 (05:34→12:15)
[2016-10-25] MEDS: METOCLOPRAMIDE HCL 10 MG/2 ML VIAL IV PUSH SCH ×2 (05:34→14:00)
[2016-10-25 07:05] VITALS: BP 120/59; PULSE 62; RESP 16; TEMP 98.8; O2SAT 96
[2016-10-25] MEDS: INSULIN ASPART SUPPLEMENTAL SCALE SQ SCH ×2 (07:30→13:34)
[2016-10-25 08:00] VITALS: PULSE 65
[2016-10-25 08:13] VITALS: O2SAT 97
[2016-10-25] MEDS: SODIUM CHLORIDE 0.9% FLUSH 10 ML FLUSH IV FLUSH SCH (09:00)
--- NOTE | 2016-10-25 09:41 | HHI.GIFU ---
Subjective Remarks Lying in bed. No complaints. Tolerating breakfast well. Denies abdominal pain. No nausea or vomiting. (Argenis York) Objective Vitals I&O Vital Signs Date Time Temp Pulse Resp B/P Pulse Ox O2 Delivery O2 Flow Rate FiO2 10/25/16 07:05 98.8 62 16 120/59 96 10/25/16 04:00 97.0 65 18 139/60 97 10/25/16 00:00 96.4 64 20 145/64 96 10/24/16 20:00 98.4 62 18 139/69 97 10/24/16 16:21 96.8 65 20 142/65 96 10/24/16 16:07 66 10/24/16 11:50 98.2 60 20 128/62 96 I/O 10/24/16 10/24/16 10/24/16 10/25/16 10/25/16 10/25/16 07:00 15:00 23:00 07:00 15:00 23:00 Intake Total 382 ml 400 ml Balance 382 ml 400 ml Intake Oral 400 ml IV Total 382 ml Imaging Last Impressions Cholangiopancreatography MRI 10/23/16 0000 Signed Impressions: Service Date/Time: Sunday, October 23, 2016 11:47 - CONCLUSION: 1. Mild hepatic steatosis. 2. No evidence of acute pancreatitis or biliary obstructive disease. Amol Sterling MD Gall Bladder Ultrasound 10/21/162057 Signed Impressions: Service Date/Time: Friday, October 21, 2016 21:47 - CONCLUSION: 1. Fatty liver enlarged to 21 cm. Exam technically difficult due to overlying bowel gas and body habitus. Bimal Orlando MD Chest X-Ray 10/21/162057 Signed Impressions: Service Date/Time: Friday, October 21, 2016 21:02 - CONCLUSION: No acute disease. Bimal Orlando MD Physical Exam HEENT: PERRLA; normocephalic; atraumatic; no jaundice. CHEST: CTA CARDIAC: RRR ABDOMEN: Soft, obese, nontender; no hepatosplenomegaly; bowel sounds x 4 EXTREMITIES: No clubbing, cyanosis, or edema. SKIN: Normal; no rash; no jaundice. WELLNESS GUIDE: No focal deficits; alert and oriented x 3 (Argenis YorkP) Assessment and Plan Plan ASSESSMENT - Elevated lipase- suggests another episode of pancreatitis. Mild. As he is not a drinker, he could be having gallstone pancreatitis. triglycerides ok EGD negative for PUD. Mild gastritis and incidental AVMs seen & cauterized. MRCP neg. Fatty liver per US, GB not reported but limited study d/t body habitus. CT ok. Cannot have GES yet. PLAN - Okay to be discharged home from GI standpoint - Followup with GI as outpatient - GES as outpatient - IGG4 before outpatient followup - [facility] Patient seen and examined by Dr. Nevarez and myself and this note is written on his behalf. (Argenis York) Physician Comments Patient seen and examined Agree with above Continue with current supportive care Monitor labs Follow-up with GI post discharge (Abhishek Nevarez MD) Argenis York Oct 25, 2016 09:41 Abhishek Nevarez MD Oct 25, 2016 13:07
[2016-10-25] MEDS: POTASSIUM CHLORIDE 10 MEQ CAP PO SCH (10:21)
[2016-10-25] MEDS: PRAVASTATIN SOD 80 MG TAB PO SCH (10:21)
[2016-10-25] MEDS: ASPIRIN 325 MG TAB PO SCH (10:21)
[2016-10-25] MEDS: DOCUSATE SODIUM 100 MG CAP PO SCH (10:22)
[2016-10-25] MEDS: LACTULOSE SYRUP 20 GM/30 ML CUP PO SCH (10:22)
[2016-10-25] MEDS: PANTOPRAZOLE SODIUM 40 MG VIAL IV PUSH SCH (10:22)
[2016-10-25] MEDS: FUROSEMIDE 20 MG TAB PO SCH (10:22)
[2016-10-25 11:08] VITALS: BP 147/84; PULSE 68; RESP 16; TEMP 98.4; O2SAT 98
--- NOTE | 2016-10-25 11:51 | HHI.DS ---
Discharge Summary Admission Date Oct 21, 2016 at 23:12 Discharge Date: Oct 25, 2016 Admitting Diagnosis Chest pain (1) Epigastric abdominal pain Diagnosis: Principal (2) Diabetes mellitus type 2, insulin dependent Diagnosis: Secondary (3) Hypertension Diagnosis: Secondary (4) Hyperlipidemia Diagnosis: Secondary (5) BPH (benign prostatic hypertrophy) Diagnosis: Secondary CBC/BMP: 10/23/16 0611 10/23/16 0611 Significant Findings Laboratory Tests Test 10/23/16 06:11 Random Glucose 205 MG/DL (74-106) Albumin 3.0 GM/DL (3.4-5.0) Hospital Course (1) Epigastric abdominal pain - Pt is a 51 y/o obese male with NIDDM, HTN, and hyperlipidemia who presented to the ED at [facility] [place] on 10/20/16 with complaints of epigastric abd pain/lower chest pain - Pt had a CT Abd/pelvis (10/20) --> Hepatomegaly and hepatic steatosis, atherosclerotic calcifications, right adrenal myolipomas, mild skin thickening and subcutaneous fat stranding right anterior abdominal wall can be seen with a cellulitis. - Pt was discharged from the ED but the pain returned and he presented to the ED at [facility] on 10/21/16 and was admitted to the chest pain center. - CE were negative. - His lipase was noted to be mildly elevated at 417 on 10/21 but otherwise his LFTs were stable. - Abd US (10/21) --> Fatty liver enlarged to 21 cm. Exam technically difficult due to overlying bowel gas and body habitus. - Repeat Lipase on 10/22 has normalized to 252. - He reports having had one melanotic stool the day prior to admission. - No reported alcohol use or NSAIDs use - Pt underwent EGD (10/23/16) --> gastritis and gastric AVM s/p cautery. -MRCP. no evidence for pancreatitis or hepatobiliary dz. unable to get GES now. trial of reglan for possible gastroparesis seems to be working. advanced diet and if doing well f/u with GI for GES (2) Diabetes mellitus type 2, insulin dependent Status: Chronic - NovoLog SSI - Pt is reportedly on NovoLog 24 units in AM, 20 units at lunch, and 20 units in PM and Tresiba 160 units HS at home. - Accu checks (3) Hypertension Status: Chronic - Home meds continued, Coreg 6.25 po BID (4) Hyperlipidemia Status: Chronic - Cont. home meds (5) BPH (benign prostatic hypertrophy) Status: Chronic - Cont. Flomax Pt Condition on Discharge: Stable Discharge Disposition: Discharge Home Discharge Instructions DIET: Follow Instructions for: Diabetic Diet Activities you can perform: Regular-No Restrictions Follow up Referrals: Gastroenterology - 2 Weeks with Miguel Chowdhury MD PCP Follow-up - [address] herrera New Medications: Metoclopramide (Reglan) 5 Mg Tab 5 MG PO TIDAC gastroparesis #90 Ref 0 TAB Pantoprazole (Protonix) 40 Mg Tab 40 MG PO DAILY Reflux #30 Ref 0 TAB Simethicone (Gas Relief Maximum Streng) 125 Mg Chw 125 MG PO Q8HR gas/bloating Days 30 EA ([Lactulose Liq]) 30 ML SYRP 30 ML PO DAILY PRN constipation #5 ML Continued Medications: Aspirin (Aspirin) 325 Mg Tab 325 MG PO DAILY #30 Ref 0 TAB Carvedilol (Carvedilol) 6.25 Mg Tab 6.25 MG PO Q12HR #60 Ref 0 TAB Furosemide (Lasix) 20 Mg Tab 20 MG PO DAILY #30 Ref 0 TAB Metformin ER (Metformin ER) 1,000 Mg Robbi 1000 MG PO BID With evening meal Blood Sugar Management #30 Ref 0 TAB Potassium Chloride ER (Potassium Chloride ER) 10 Meq Cap 10 MEQ PO DAILY Electrolyte Replacement #30 Ref 0 CAP Simvastatin (Simvastatin) 80 Mg Tab 80 MG PO DAILY Cholesterol Management #30 Ref 0 TAB Tamsulosin (Flomax) 0.4 Mg Cap 0.4 MG PO HS Manage Prostate Problems #90 Ref 3 CAP Kvng Hernandez MD Oct 25, 2016 11:51
[2016-10-25] MEDS ORDERED: REGL5TAB PO (11:57)
[2016-10-25] MEDS ORDERED: PROT40TA PO (11:57)
[2016-10-25] MEDS ORDERED: SIME1CHW11 PO (11:57)
[2016-10-25] MEDS ORDERED: Lactulose Liq PO (11:57)
--- NOTE | 2016-10-25 12:04 | HHI.DCPOC ---
Discharge Care Plan Diagnosis: (1) Abdominal pain Goals to Promote Your Health * To prevent worsening of your condition and complications * To maintain your health at the optimal level Directions to Meet Your Goals Take your medications as prescribed Follow your dietary instruction Follow activity as directed Keep your appointments as scheduled Take your immunizations and boosters as scheduled If your symptoms worsen call your PCP, if no PCP go to Urgent Care Center or Emergency Room Smoking is Dangerous to Your Health. Avoid second hand smoke Call the 24-hour hour crisis hotline for domestic abuse at Kvng Hernandez MD Oct 25, 2016 12:04
[2016-12-02] MEDS ORDERED: LACT10SO PO (14:17)
== END 2016-10-25 15:32 | disposition home or self-care (01) ==
LOC: NEPE 20:42 → NEDA 23:12 → NEPHCDU 10-22 00:29
PROVIDERS: ADMIT Hospitalist; ATTEND Hospitalist
DX: R10.9 Unspecified abdominal pain (principal); K59.00 Constipation, unspecified; R68.81 Early satiety; R19.5 Other fecal abnormalities; M54.9 Dorsalgia, unspecified; R61 Generalized hyperhidrosis; R23.4 Changes in skin texture; I10 Essential (primary) hypertension; E11.65 Type 2 diabetes mellitus with hyperglycemia; E78.5 Hyperlipidemia, unspecified; K29.60 Other gastritis without bleeding; R10.13 Epigastric pain; N40.0 Benign prostatic hyperplasia without lower urinary tract symptoms; K76.0 Fatty (change of) liver, not elsewhere classified; Q27.33 Arteriovenous malformation of digestive system vessel; R07.9 Chest pain, unspecified; I25.2 Old myocardial infarction; E78.00 Pure hypercholesterolemia, unspecified; K85.90 Acute pancreatitis without necrosis or infection, unspecified; R74.8 Abnormal levels of other serum enzymes; E78.1 Pure hyperglyceridemia; F17.210 Nicotine dependence, cigarettes, uncomplicated; E66.01 Morbid (severe) obesity due to excess calories; Z79.899 Other long term (current) drug therapy; Z79.82 Long term (current) use of aspirin; Z79.84 Long term (current) use of oral hypoglycemic drugs; Z79.4 Long term (current) use of insulin; Z86.73 Personal history of transient ischemic attack (TIA), and cerebral infarction without residual deficits
CPT/HCPCS: 00740; 43239; 71010; 74181; 76377; 76705; 80053; 82550; 82948; 83690; 83735; 84478; 84484; 85025; 85610; 85730; 88305; 88312; 93005; 96361; 96372; 96374; 96375; 96376; 99285; C9113; G0378; J1815; J2270; J2405; J2765; J7030

== ENCOUNTER → 2016-12-17 | Day surgery (SDC) | payer OTHER ==
[~2016-12-17] VITALS: Ht 180.3 cm; Wt 152.7 kg
[~2016-12-17] MED LIST changes: +CHLORHEXIDINE GLUCONATE 2 % 1 PACK (2 CLOTHS) TOPICAL PRN; +INSULIN HUMAN REGULAR 1,000 UNITS/10 ML VIAL SQ PRN; +LACT10SO PO; +LACTATED RINGER'S 1000 ML IV PRN; +LIDOCAINE HCL 2% 50 ML VIAL ONE; +METOPROLOL TARTRATE 25 MG TAB ONE; +METOPROLOL TARTRATE 25 MG TAB PO PRN; +POVIDONE IODINE 5% (ANTISEPSIS KIT) 4 APPLICATIONS EACH NARE PRN; +PROT40TA PO; +REGL5TAB PO; +SIME1CHW11 PO; +SODIUM CHLORID 0.9% 500 ML IV PRN; +SODIUM CHLORIDE 0.9% INJ 100 ML ONE; +ceFAZolin 1,000 MG/NS 100 ML IV SCH; +ceFAZolin INJ 1,000 MG VIAL ONE
[2016-12-17 10:15] VITALS: BP 140/73; PULSE 72; RESP 20; TEMP 98.3; O2SAT 97
[2016-12-17 10:16] LABS: AUTOMATED NEUTROPHIL # 3.4 TH/MM3 (1.8-7.7); BASOPHIL % 0.7 % (0.0-2.0); EOSINOPHIL # 0.3 TH/MM3 (0-0.4); HEMATOCRIT 47.1 % (39.0-51.0); HEMO FLAGS DIFF FINAL; LYMPH % 38.2 % (9.0-44.0); LYMPHOCYTE # 2.7 TH/MM3 (1.0-4.8); MEAN CELL VOLUME 85.1 FL (80.0-100.0); MEAN CORPUSCULAR HEMOGLOBIN 29.4 PG (27.0-34.0); MEAN CORPUSCULAR HGB CONC 34.5 % (32.0-36.0); MONO % 8.7 % (0.0-8.0); NEUT % 48.4 % (16.0-70.0); PLATELET COUNT 162 TH/MM3 (150-450); RED BLOOD COUNT 5.53 MIL/MM3 (4.50-5.90); RED CELL DISTRIBUTION WIDTH 13.1 % (11.6-17.2); WHITE BLOOD COUNT 7.1 TH/MM3 (4.0-11.0)
== END | disposition home or self-care (01) ==
LOC: HSDC 09:00
PROVIDERS: ATTEND Urology
DX: A63.0 Anogenital (venereal) warts (principal); Z53.09 Procedure and treatment not carried out because of other contraindication
CPT/HCPCS: 85025; G0463; J0690; 99211

== ENCOUNTER → 2016-12-18 | Day surgery (SDC) | payer OTHER ==
[~2016-12-18] VITALS: Ht 180.3 cm; Wt 151.1 kg
[~2016-12-18] MED LIST changes: +*ONDANSETRON 4 MG VIAL PERIprocedural Use ONLY ONE; +*PROMETHAZINE 25 MG/ML VIAL PERIprocedural use ONLY ONE; +ACETAMINOPHEN/HYDROcodone 325 MG/7.5 MG TAB PO PRN; +BACITRACIN TOP OINT 15 GM TUBE ONE; +BUPIVACAINE HCL PF 0.25% 30 ML VIAL ONE; +DO NOT ADM ANY ANTICOAGULANT DRUGS PRN; +LIDOCAINE HCL 1% PF 5 ML AMPULE OTHER ONE; -METOPROLOL TARTRATE 25 MG TAB ONE; +MORPHINE SULFATE 4 MG/ML INJ IV PRN; +ONDANSETRON HCL 4 MG/2 ML VIAL IV PUSH PRN; +PROPOFOL 200 MG/20 ML AMP IV ONE; -REGL5TAB PO; -SODIUM CHLORIDE 0.9% INJ 100 ML ONE; -ceFAZolin INJ 1,000 MG VIAL ONE
--- NOTE | 2016-12-18 14:06 | PD.OP ---
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 LMA Surgeon: Brandon Preston Analytic Programmer(s): None Resident Surgeon: None Operation and Findings: 51-year-old male with history of squamous cell carcinoma the penis whose had a history of penile condyloma in the past. Decision made to bring the patient to the operating room to undergo excision and laser of penile condyloma with urethral dilatation. Risk and benefits were discussed preoperatively he was willing to proceed. Patient is brought to the operating room and identified by myself as Rene Hollingsworth. He was placed in the supine position on the operating table, prepped and draped in usual sterile fashion, received preprocedure antibiotics and general LMA anesthesia was administered. Half percent Marcaine was injected at the base of condyloma near the frenulum. A 15 blade was used to excise the condyloma and then the CO2 laser was then used to cauterize the base of the tumor. Small condyloma was identified near the meatus and this was also lasered. Urethral dilatation then occurred with a 14 Brazilian sound up to a 22 Brazilian sound. Bacitracin ointment was then applied. He tolerated procedure well and was woken and transferred her room in stable condition. Brandon Preston DO Dec 18, 2016 14:06
[2016-12-18 16:39] VITALS: BP 137/71; PULSE 77; RESP 18; TEMP 97.7; O2SAT 97
== END | disposition home or self-care (01) ==
LOC: HSDC 10:50
PROVIDERS: ATTEND Urology
DX: A63.0 Anogenital (venereal) warts (principal); N35.9 Urethral stricture, unspecified; Z85.49 Personal history of malignant neoplasm of other male genital organs
CPT/HCPCS: 00920; 52281; 54065; 88305; J0690; J2405; J2550; J3010; J7120

== ENCOUNTER → 2016-12-30 | Outpatient (CLI) | payer OTHER ==
[~2016-12-30] VITALS: Ht 180.3 cm; Wt 149.6 kg
[~2016-12-30] MED LIST changes: -*ONDANSETRON 4 MG VIAL PERIprocedural Use ONLY ONE; -*PROMETHAZINE 25 MG/ML VIAL PERIprocedural use ONLY ONE; -ACETAMINOPHEN/HYDROcodone 325 MG/7.5 MG TAB PO PRN; -BACITRACIN TOP OINT 15 GM TUBE ONE; -BUPIVACAINE HCL PF 0.25% 30 ML VIAL ONE; +DEXAMETHASONE SOD PHOS 4 MG/ML VIAL IV ONE; -LACT10SO PO; +LACTATED RINGER'S 1000 ML INJ 1,000 ML IV ONE; -LIDOCAINE HCL 2% 50 ML VIAL ONE; -MORPHINE SULFATE 4 MG/ML INJ IV PRN; +ONDANSETRON HCL 4 MG/2 ML VIAL IV PUSH ONE; -ONDANSETRON HCL 4 MG/2 ML VIAL IV PUSH PRN; +ROCURONIUM INJ 50 MG/5 ML SYRINGE IV PUSH ONE; +SUCCINYLCHOLINE CHLORIDE 100 MG/5 ML SYRINGE IV PUSH ONE; -ceFAZolin 1,000 MG/NS 100 ML IV SCH
[2016-12-30 12:22] VITALS: BP 157/81; PULSE 81; RESP 16; TEMP 97.7; O2SAT 95
--- NOTE | 2016-12-30 13:26 | PD.PROCEDR ---
GI Procedure PROCEDURE PERFORMED Endoscopic ultrasound followed by an incomplete colonoscopy to the mid transverse colon due to poor prep INDICATION FOR PROCEDURE History of pancreatitis, history of colon polyps PROCEDURE: The procedure, risks and benefits were discussed with Mr. Hollingsworth and informed consent was obtained. Anesthesia sedated him with Diprivan. He was placed in the left lateral decubitus position. Endoscopic ultrasound: The Pentax videoscope was introduced through the oropharynx and advanced to the second portion of the duodenum FINDINGS: The endosonographic appearance of the pancreas was unremarkable from head to tail Normal pancreatic duct measuring 1 mm Normal common bile duct free of any filling defects Normal gallbladder No lymphadenopathy Colonoscopy: The Pentax videoscope was introduced through the rectum and advanced to mid transverse colon. Retroflexion was performed in the rectum. Colonic prep was poor with solid stools noted FINDINGS: As the scope was slowly withdrawn colonic mucosa was carefully inspected spirits to be unremarkable within normal limits but obviously the evaluation is incomplete due to poor prep ESTIMATED BLOOD LOSS: None SPECIMENS REMOVED: None COMPLICATIONS: None IMPRESSION: Normal endoscopic ultrasound Incomplete colonoscopy due to poor prep PLAN: Repeat colonoscopy in 1-3 months with a 2 day prep with GoLYTELY on both days ASA 3 patient to be done in the hospital or [facility] Follow-up in clinic in 3-4 weeks Abhishek Nevarez MD Dec 30, 2016 13:26
== END ==
LOC: HOR 07:45
PROVIDERS: ATTEND Internal Medicine Gastroenterology
DX: Z87.19 Personal history of other diseases of the digestive system (principal); Z86.010 Personal history of colon polyps; K29.70 Gastritis, unspecified, without bleeding
CPT/HCPCS: 00740; 43259; 45378; J0330; J1100; J2405; J3010; J7120

== ENCOUNTER 2017-01-20 08:26 | Emergency (ER) | payer OTHER ==
[~2017-01-20] VITALS: Ht 180.3 cm; Wt 151.0 kg
[~2017-01-20 08:26] MED LIST changes: +ASPI-183 PO; -ASPI325T PO; -CHLORHEXIDINE GLUCONATE 2 % 1 PACK (2 CLOTHS) TOPICAL PRN; -DEXAMETHASONE SOD PHOS 4 MG/ML VIAL IV ONE; -DO NOT ADM ANY ANTICOAGULANT DRUGS PRN; -INSULIN HUMAN REGULAR 1,000 UNITS/10 ML VIAL SQ PRN; -LACTATED RINGER'S 1000 ML INJ 1,000 ML IV ONE; -LACTATED RINGER'S 1000 ML IV PRN; -LIDOCAINE HCL 1% PF 5 ML AMPULE OTHER ONE; -METOPROLOL TARTRATE 25 MG TAB PO PRN; -ONDANSETRON HCL 4 MG/2 ML VIAL IV PUSH ONE; -POVIDONE IODINE 5% (ANTISEPSIS KIT) 4 APPLICATIONS EACH NARE PRN; -PROPOFOL 200 MG/20 ML AMP IV ONE; -ROCURONIUM INJ 50 MG/5 ML SYRINGE IV PUSH ONE; -SIME1CHW11 PO; -SODIUM CHLORID 0.9% 500 ML IV PRN; -SUCCINYLCHOLINE CHLORIDE 100 MG/5 ML SYRINGE IV PUSH ONE
[2017-01-20 08:28] VITALS: BP 166/80; PULSE 80; RESP 16; TEMP 98.1; O2SAT 97
[2017-01-20 09:10] VITALS: BP 129/75; PULSE 82; RESP 16
--- NOTE | 2017-01-20 09:36 | PD ---
HPI Chief Complaint: GI Complaint Time Seen by Provider: 09:19 Travel History International Travel<30 days: No Contact w/Intl Traveler<30days: No Traveled to known affect area: No History of Present Illness HPI This 52-year-old male is complaining of left-sided chest pain. He's been sick for several days. He's had a sore throat and cough. She's had fever as high as 101. He is having left-sided chest pain which is aggravated by deep breathing and coughing. The pain is severe at times He has bringing up the bringing up phlegm. He does smoke. PFSH Past Medical History Hx Anticoagulant Therapy: No Blood Disorders: No Cancer: Yes (SQUAMOUS CELL) Cardiac Catheterization: No Cardiovascular Problems: No High Cholesterol: Yes Chemotherapy: No Congestive Heart Failure: No Cerebrovascular Accident: Yes (TIA) Diabetes: Yes Patient Takes Glucophage: Yes Diminished Hearing: No Endocrine: Yes Gastrointestinal Disorders: Yes (constipation and reflux) GERD: Yes Genitourinary: No Hepatitis: No Hiatal Hernia: No Hypertension: Yes Immune Disorder: No Musculoskeletal: No Neurologic: No Psychiatric: No Reproductive: No Respiratory: No Immunizations Current: Yes Pancreatitis: Yes Thyroid Disease: No Tetanus Vaccination: < 5 Years Influenza Vaccination: No Past Surgical History Abdominal Surgery: Yes (VENTRAL HERNIA REPAIR) AICD: No Body Medical Devices: none Cardiac Surgery: No Coronary Artery Bypass Graft: No Ear Surgery: No Endocrine Surgery: No Eye Surgery: No Genitourinary Surgery: Yes (vasectomy) Joint Replacement: No Oral Surgery: No Pacemaker: No Thoracic Surgery: No Other Surgery: Yes (cyst removal, vasectomy) Family History Family Myocardial Infarction: Yes (maternal and paternal (dad at 68 from [place])) Social History Alcohol Use: No Tobacco Use: Yes (1PP3D) Substance Use: No Allergies-Medications (Allergen,Severity, Reaction): Coded Allergies: No Known Allergies (Verified Adverse Reaction, Unknown, 01/20/17) Reported Meds & Prescriptions Reported Meds & Active Scripts Active Protonix (Pantoprazole Sodium) 40 Mg Tab 40 Mg PO DAILY Flomax (Tamsulosin HCl) 0.4 Mg Cap 0.4 Mg PO HS Reported Simvastatin 80 Mg Tab 80 Mg PO DAILY Potassium Chloride ER (Potassium Chloride) 10 Meq Cap 10 Meq PO DAILY Lasix (Furosemide) 20 Mg Tab 20 Mg PO DAILY Metformin ER (Metformin HCl) 1,000 Mg Robbi 1,000 Mg PO BID With evening meal Carvedilol 6.25 Mg Tab 6.25 Mg PO Q12HR Aspirin 325 Mg Tab 325 Mg PO DAILY Review of Systems General / Constitutional: Positive: Fever, Chills Eyes: No: Diploplia, Blurred Vision HENT: No: Headaches, Vertigo Cardiovascular: No: Chest Pain or Discomfort, Palpitations Respiratory: No: Cough, Shortness of Breath Gastrointestinal: No: Nausea, Vomiting Genitourinary: No: Urgency, Frequency Musculoskeletal: No: Myalgias Skin: No Rash Neurologic: No: Weakness, Dizziness Psychiatric: No: Disorder of Thought Endocrine: No: Heat Intolerance, Cold Intolerance Physical Exam Narrative GENERAL: Well-developed male SKIN: Focused skin assessment warm/dry. HEAD: Atraumatic. Normocephalic. EYES: Pupils equal and round. No scleral icterus. No injection or drainage. ENT: No nasal bleeding or discharge. Mucous membranes pink and moist. NECK: Trachea midline. No JVD. CARDIOVASCULAR: Regular rate and rhythm. No murmur appreciated. RESPIRATORY: No accessory muscle use. There are occasional bilateral rhonchi. There is tenderness of the left costal margin GASTROINTESTINAL: Abdomen soft, non-tender, nondistended. Hepatic and splenic margins not palpable. MUSCULOSKELETAL: No obvious deformities. No clubbing. No cyanosis. No edema. NEUROLOGICAL: Awake and alert. No obvious cranial nerve deficits. Motor grossly within normal limits. Normal speech. PSYCHIATRIC: Appropriate mood and affect; insight and judgment normal. Data Data Last Documented VS Vital Signs Date Time Temp Pulse Resp B/P (MAP) Pulse Ox O2 Delivery O2 Flow Rate FiO2 01/20/17 10:45 16 01/20/17 10:00 79 115/66 (82) 97 Room Air 01/20/17 08:28 98.1 Orders Orders Influenzae A/B Antigen (01/20/17 09:33) Chest, Single Ap (01/20/17 09:33) Albuterol-Ipratropium Neb (Duoneb Neb) (01/20/17 09:45) MDM Medical Decision Making Medical Screen Exam Complete: Yes Emergency Medical Condition: Yes Medical Record Reviewed: Yes Differential Diagnosis Differential includes pneumonia, influenza, bronchitis Narrative Course Chest x-ray is negative for pneumonia. Influenza test is negative. Patient appears to have some COPD superimposed bronchitis. He'll be placed on antibiotics Diagnosis Primary Impression: Acute bronchitis Additional Impression: Chest wall pain Scripts Hydrocodone-Acetaminophen (Lortab) 7.5-325 Mg Tab 1 TAB PO Q4H Y for PAIN, #15 TAB 0 Refills Prov: Josh Adams MD 01/20/17 Amoxicillin (Amoxicillin) 500 Mg Cap 500 MG PO TID for Infection for 10 Days, CAP 0 Refills Prov: Josh Adams MD 01/20/17 Disposition: 01 DISCHARGE HOME Condition: Stable Josh Adams MD Jan 20, 2017 09:36
[2017-01-20] MEDS ORDERED: RESP: ALBUTEROL 2.5 MG/IPRATROPIUM 0.5 MG NEB (SCH) NEB ONE (09:45)
--- NOTE | 2017-01-20 09:52 | RADRPT ---
EXAM DATE/TIME: 01/20/2017 09:38 [facility] COMPARISON: CHEST SINGLE AP, October 21, 2016, 21:02. INDICATIONS : Left side chest pain. MEDICAL HISTORY : Hypertension. Diabetes mellitus type II. Pancreatitis. smoker SURGICAL HISTORY : None. ENCOUNTER: Initial ACUITY: 1 day PAIN SCORE: 10/10 LOCATION: Left chest FINDINGS: Portable AP view of the chest demonstrates a normal-sized cardiac silhouette. No effusion, consolidat ion, or pneumothorax is visualized. The bones and soft tissues demonstrate no acute abnormality. CONCLUSION: No acute cardiopulmonary abnormality is identified. Saul Roy MD on January 20, 2017 at 9:50 Board Certified Radiologist. This report was verified electronically.
[2017-01-20 10:00] VITALS: BP 115/66; PULSE 79; RESP 16; O2SAT 97
[2017-01-20] MEDS ORDERED: HYDR-3534 PO (11:24)
[2017-01-20] MEDS ORDERED: AMOX500C PO (11:24)
[2017-01-20 11:33] VITALS: BP 122/72
== END 2017-01-20 11:36 | disposition home or self-care (01) ==
LOC: PHED 08:26
DX: J20.9 Acute bronchitis, unspecified (principal); E11.9 Type 2 diabetes mellitus without complications; F17.210 Nicotine dependence, cigarettes, uncomplicated; Z79.84 Long term (current) use of oral hypoglycemic drugs
CPT/HCPCS: 71010; 87804; 94664; 99284

== ENCOUNTER 2017-01-22 09:31 | Emergency (ER) | payer OTHER ==
[~2017-01-22] VITALS: Ht 180.3 cm; Wt 145.0 kg
[~2017-01-22 09:31] MED LIST changes: +AMOX500C PO; +HYDR-3534 PO
[2017-01-22 09:33] VITALS: BP 172/70; PULSE 90; RESP 26; TEMP 98.7; O2SAT 93
[2017-01-22] MEDS ORDERED: ONDANSETRON HCL 4 MG/2 ML VIAL IV PUSH ONE (10:00)
[2017-01-22] MEDS ORDERED: AZITHROMYCIN INJ 500 MG in SODIUM CHLOR 0.9% 250 ML INJ 250 ML IV ONE (10:00)
[2017-01-22] MEDS ORDERED: MORPHINE SULFATE 4 MG/ML INJ IV PUSH ONE (10:00)
[2017-01-22] MEDS ORDERED: SODIUM CHLORIDE 0.9% FLUSH 10 ML FLUSH IVF PRN (10:00)
[2017-01-22] MEDS ORDERED: cefTRIAXone INJ 1,000 MG in SODIUM CHLORIDE 0.9% INJ 100 ML IV ONE (10:00)
--- NOTE | 2017-01-22 10:02 | PD ---
HPI Chief Complaint: Respiratory Symptoms Time Seen by Provider: 09:46 Travel History International Travel<30 days: No Contact w/Intl Traveler<30days: No Traveled to known affect area: No History of Present Illness HPI The patient is a 52-year-old male who presents emergency department for left sided chest pain and cough. The patient was seen several days ago at [facility] where he had an x-ray performed which was negative and was diagnosed with bronchitis. The patient was discharged home on amoxicillin, however, states he has increasing pain over the left lateral chest wall as well as some abdominal wall pain secondary to coughing. He then developed nausea and vomiting last night. He does complain of mild shortness of breath, left- sided chest pain and is worse with coughing and inspiration. He thinks he "cracked a rib "on the left side. He does have a history of tobacco use, last cigarette was last week. He does have a history of diabetes and hypertension as well as CVA. The patient called his primary physician, Dr. Dr. Guzman, who referred him to the emergency department. Symptoms are moderate, there are no alleviating or exacerbating factors. PFSH Past Medical History Hx Anticoagulant Therapy: No Blood Disorders: No Cancer: Yes (SQUAMOUS CELL) Cardiac Catheterization: No Cardiovascular Problems: No High Cholesterol: Yes Chemotherapy: No Congestive Heart Failure: No Cerebrovascular Accident: Yes (TIA) Diabetes: Yes Patient Takes Glucophage: Yes (01-21-2017) Diminished Hearing: No Endocrine: Yes Gastrointestinal Disorders: Yes (constipation and reflux) GERD: Yes Genitourinary: No Hepatitis: No Hiatal Hernia: No Hypertension: Yes Immune Disorder: No Musculoskeletal: No Neurologic: No Psychiatric: No Reproductive: No Respiratory: No Immunizations Current: Yes Pancreatitis: Yes Thyroid Disease: No Past Surgical History Abdominal Surgery: Yes (VENTRAL HERNIA REPAIR) AICD: No Body Medical Devices: none Cardiac Surgery: No Coronary Artery Bypass Graft: No Ear Surgery: No Endocrine Surgery: No Eye Surgery: No Genitourinary Surgery: Yes (vasectomy) Joint Replacement: No Oral Surgery: No Pacemaker: No Thoracic Surgery: No Other Surgery: Yes ( vasectomy) Family History Family Myocardial Infarction: Yes (maternal and paternal (dad at 68 from [place])) Social History Alcohol Use: No Tobacco Use: Yes (1PP3D) Substance Use: No Allergies-Medications (Allergen,Severity, Reaction): Coded Allergies: No Known Allergies (Verified Adverse Reaction, Unknown, 01/22/17) Reported Meds & Prescriptions Reported Meds & Active Scripts Active Amoxicillin 500 Mg Cap 500 Mg PO TID 10 Days Protonix (Pantoprazole Sodium) 40 Mg Tab 40 Mg PO DAILY Flomax (Tamsulosin HCl) 0.4 Mg Cap 0.4 Mg PO HS Reported Simvastatin 80 Mg Tab 80 Mg PO DAILY Potassium Chloride ER (Potassium Chloride) 10 Meq Cap 10 Meq PO DAILY Lasix (Furosemide) 20 Mg Tab 20 Mg PO DAILY Metformin ER (Metformin HCl) 1,000 Mg Robbi 1,000 Mg PO BID With evening meal Carvedilol 6.25 Mg Tab 6.25 Mg PO Q12HR Aspirin 325 Mg Tab 325 Mg PO DAILY Review of Systems Except as stated in HPI: all other systems reviewed are Neg General / Constitutional: No: Fever Cardiovascular: Positive: Chest Pain or Discomfort (left-sided chest pain secondary to coughing) Respiratory: Positive: Cough (productive cough producing white to yellow sputum ), Shortness of Breath, Pleuritic Pain Gastrointestinal: Positive: Nausea, Vomiting, Abdominal Pain (secondary to coughing) Musculoskeletal: Positive: Edema (chronic edema) Physical Exam Narrative GENERAL: Awake, alert, pleasant 82-year-old male who appears his stated age and has mild tachypnea with a respiratory rate of 22. SKIN: Focused skin assessment warm/dry. HEAD: Atraumatic. Normocephalic. EYES: Pupils equal and round. No scleral icterus. No injection or drainage. ENT: No nasal bleeding or discharge. Mucous membranes pink and moist. NECK: Trachea midline. No JVD. CARDIOVASCULAR: Regular rate and rhythm. No murmur appreciated. Tenderness to palpation over the lateral left chest wall. RESPIRATORY: Mild tachypnea with a respiratory rate of 22. Rhonchi noted in the left base. GASTROINTESTINAL: Abdomen soft, obese, mild tenderness along the midline of the abdomen but no guarding or rigidity. MUSCULOSKELETAL: Chronic venous stasis changes to lower extremities with superficial varicosities noted. NEUROLOGICAL: Awake and alert. No obvious cranial nerve deficits. Motor grossly within normal limits. Normal speech. PSYCHIATRIC: Appropriate mood and affect; insight and judgment normal. Data Data Last Documented VS Vital Signs Date Time Temp Pulse Resp B/P (MAP) Pulse Ox O2 Delivery O2 Flow Rate FiO2 01/22/17 09:48 85 20 95 Room Air 01/22/17 09:33 98.7 172/70 (104) Orders Orders Electrocardiogram (01/22/17 09:57) Complete Blood Count With Diff (01/22/17 09:57) Comprehensive Metabolic Panel (01/22/17 09:57) Lactic Acid Sepsis Protocol (01/22/17 09:57) Blood Culture (01/22/17 09:57) Chest, Pa & Lat (01/22/17 09:57) Ecg Monitoring (01/22/17 09:57) Iv Access Insert/Monitor (01/22/17 09:57) Sodium Chloride 0.9% Flush (Ns Flush) (01/22/17 10:00) Ceftriaxone Inj (Rocephin Inj) (01/22/17 10:00) Azithromycin Inj (Zithromax Inj) (01/22/17 10:00) Albuterol-Ipratropium Neb (Duoneb Neb) (01/22/17 10:00) Morphine Inj (Morphine Inj) (01/22/17 10:00) Ondansetron Inj (Zofran Inj) (01/22/17 10:00) Labs Laboratory Tests Test 01/22/17 10:05 01/22/17 10:14 White Blood Count 13.1 TH/MM3 Red Blood Count 5.73 MIL/MM3 Hemoglobin 16.8 GM/DL Hematocrit 49.3 % Mean Corpuscular Volume 86.1 FL Mean Corpuscular Hemoglobin 29.3 PG Mean Corpuscular Hemoglobin Concent 34.0 % Red Cell Distribution Width 13.1 % Platelet Count 210 TH/MM3 Mean Platelet Volume 10.0 FL Neutrophils (%) (Auto) 74.9 % Lymphocytes (%) (Auto) 16.1 % Monocytes (%) (Auto) 7.3 % Eosinophils (%) (Auto) 1.3 % Basophils (%) (Auto) 0.4 % Neutrophils # (Auto) 9.8 TH/MM3 Lymphocytes # (Auto) 2.1 TH/MM3 Monocytes # (Auto) 1.0 TH/MM3 Eosinophils # (Auto) 0.2 TH/MM3 Basophils # (Auto) 0.0 TH/MM3 CBC Comment DIFF FINAL Differential Comment Blood Urea Nitrogen 22 MG/DL Creatinine 0.84 MG/DL Random Glucose 132 MG/DL Total Protein 8.2 GM/DL Albumin 3.4 GM/DL Calcium Level 9.1 MG/DL Alkaline Phosphatase 74 U/L Aspartate Amino Transf (AST/SGOT) 27 U/L Alanine Aminotransferase (ALT/SGPT) 33 U/L Total Bilirubin 0.8 MG/DL Sodium Level 134 MEQ/L Potassium Level 4.6 MEQ/L Chloride Level 100 MEQ/L Carbon Dioxide Level 26.9 MEQ/L Anion Gap 7 MEQ/L Estimat Glomerular Filtration Rate 95 ML/MIN Lactic Acid Level 1.2 mmol/L [facility] Medical Decision Making Medical Screen Exam Complete: Yes Emergency Medical Condition: Yes Medical Record Reviewed: Yes Interpretation(s) EKG reveals normal sinus rhythm with a rate 84. Nonspecific T wave changes. Laboratory Tests Test 01/22/17 10:05 01/22/17 10:14 White Blood Count 13.1 TH/MM3 Red Blood Count 5.73 MIL/MM3 Hemoglobin 16.8 GM/DL Hematocrit 49.3 % Mean Corpuscular Volume 86.1 FL Mean Corpuscular Hemoglobin 29.3 PG Mean Corpuscular Hemoglobin Concent 34.0 % Red Cell Distribution Width 13.1 % Platelet Count 210 TH/MM3 Mean Platelet Volume 10.0 FL Neutrophils (%) (Auto) 74.9 % Lymphocytes (%) (Auto) 16.1 % Monocytes (%) (Auto) 7.3 % Eosinophils (%) (Auto) 1.3 % Basophils (%) (Auto) 0.4 % Neutrophils # (Auto) 9.8 TH/MM3 Lymphocytes # (Auto) 2.1 TH/MM3 Monocytes # (Auto) 1.0 TH/MM3 Eosinophils # (Auto) 0.2 TH/MM3 Basophils # (Auto) 0.0 TH/MM3 CBC Comment DIFF FINAL Differential Comment Blood Urea Nitrogen 22 MG/DL Creatinine 0.84 MG/DL Random Glucose 132 MG/DL Total Protein 8.2 GM/DL Albumin 3.4 GM/DL Calcium Level 9.1 MG/DL Alkaline Phosphatase 74 U/L Aspartate Amino Transf (AST/SGOT) 27 U/L Alanine Aminotransferase (ALT/SGPT) 33 U/L Total Bilirubin 0.8 MG/DL Sodium Level 134 MEQ/L Potassium Level 4.6 MEQ/L Chloride Level 100 MEQ/L Carbon Dioxide Level 26.9 MEQ/L Anion Gap 7 MEQ/L Estimat Glomerular Filtration Rate 95 ML/MIN Lactic Acid Level 1.2 mmol/L Last Impressions Chest X-Ray 11/10/17 0957 Signed Impressions: Service Date/Time: Sunday, January 22, 2017 10:52 - CONCLUSION: Underinflated examination. No acute cardiopulmonary abnormality is identified. Saul Roy MD Differential Diagnosis Differential diagnosis includes bronchitis, pneumonia, pneumothorax, pleural effusion, sepsis, abdominal wall strain, pulmonary embolism, rib fracture. Narrative Course IV was established, labs are drawn and sent, and the patient was placed on cardiac telemetry monitoring and continuous pulse oximetry monitoring. EKG was ordered and interpreted. Chest x-ray was obtained. The patient was administered duo nebs with Rocephin and Zithromax. Chest x-ray was obtained. Chest x-ray reveals no acute croup pulmonary disease, however, I do suspect a left lower lobe pneumonia. Patient's white count is mildly elevated at 13.1, lactic acid is normal. Patient's O2 sat it varies between 91 and 92%, the patient does have a history of tobacco use. Patient will be switched from amoxicillin to Levaquin, also be placed on albuterol inhaler and Phenergan with codeine. He will be provided a copy of his labs and x-ray results at discharge and is advised to follow-up with his primary physician, Dr. Guzman. Diagnosis Primary Impression: Bronchitis Patient Instructions: General Instructions Additional Instructions: Discontinue amoxicillin. Levaquin as directed. Albuterol inhaler and Phenergan with codeine as directed. Please provide the patient a copy of his x- ray results and lab results at discharge. Stop smoking. Med/Other Pt SpecificInfo: Prescription(s) given, Med Stopped (stop amoxicillin) Scripts Promethazine-Codeine Liq (Promethazine-Codeine Liq) 6.25-10 Mg/5 Ml Syrp 5 ML PO Q6H Y for COUGH AND/OR COLD SYMPTOMS, #240 ML 0 Refills Prov: Jag Flores MD 01/22/17 Albuterol 18 GM Inh (Ventolin Hfa 18 GM Inh) 90 Mcg/Act Aer 2 PUFF INH Q4H Y for SHORTNESS OF BREATH, #1 INHALER 0 Refills Prov: Jag Flores MD 01/22/17 Levofloxacin (Levaquin) 500 Mg Tablet 500 MG PO DAILY for Infection for 7 Days, #7 TAB 0 Refills Prov: Jag Flores MD 01/22/17 Disposition: 01 DISCHARGE HOME Condition: Stable Jag Flores MD Jan 22, 2017 10:02
[2017-01-22] MEDS: RESP: ALBUTEROL 2.5 MG/IPRATROPIUM 0.5 MG NEB (SCH) INH (10:09)
[2017-01-22 10:45] LABS: AUTOMATED NEUTROPHIL # 9.8 TH/MM3 (1.8-7.7); BASOPHIL % 0.4 % (0.0-2.0); EOSINOPHIL # 0.2 TH/MM3 (0-0.4); EOSINOPHIL % 1.3 % (0.0-4.0); HEMATOCRIT 49.3 % (39.0-51.0); HEMO FLAGS DIFF FINAL; LYMPH % 16.1 % (9.0-44.0); LYMPHOCYTE # 2.1 TH/MM3 (1.0-4.8); MEAN CELL VOLUME 86.1 FL (80.0-100.0); MEAN CORPUSCULAR HEMOGLOBIN 29.3 PG (27.0-34.0); MONO % 7.3 % (0.0-8.0); NEUT % 74.9 % (16.0-70.0); PLATELET COUNT 210 TH/MM3 (150-450); RED BLOOD COUNT 5.73 MIL/MM3 (4.50-5.90); RED CELL DISTRIBUTION WIDTH 13.1 % (11.6-17.2); WHITE BLOOD COUNT 13.1 TH/MM3 (4.0-11.0)
[2017-01-22 11:03] LABS: ALKALINE PHOSPHATASE 74 U/L (45-117); ALT (GPT) 33 U/L (12-78); ANION GAP 7 MEQ/L (5-15); AST (GOT) 27 U/L (15-37); BICARBONATE 26.9 MEQ/L (21.0-32.0); CHLORIDE 100 MEQ/L (98-107); GLOMERULAR FILTRATION RATE 95 ML/MIN (>89); POTASSIUM 4.6 MEQ/L (3.5-5.1); SODIUM (NA) 134 MEQ/L (136-145); TOTAL BILIRUBIN ADULT 0.8 MG/DL (0.2-1.0)
[2017-01-22 11:04] LABS: BLOOD UREA NITROGEN 22 MG/DL (7-18)
--- NOTE | 2017-01-22 11:17 | RADRPT ---
EXAM DATE/TIME: 01/22/2017 10:52 [facility] COMPARISON: CHEST PA & LAT, October 20, 2016, 23:18. INDICATIONS : Coughing, chest pain, nausea, short of breath MEDICAL HISTORY : Hypertension. Diabetes mellitus type II. Pancreatitis. smoker SURGICAL HISTORY : None. ENCOUNTER: [facility] ACUITY: 3 days PAIN SCORE: 5/10 LOCATION: Bilateral chest FINDINGS: Portable AP view of the chest demonstrates a normal-sized cardiac silhouette. No effusion, consolidat ion, or pneumothorax is visualized. The bones and soft tissues demonstrate no acute abnormality. Lung s are underinflated. CONCLUSION: Underinflated examination. No acute cardiopulmonary abnormality is identified. Saul Roy MD on January 22, 2017 at 11:15 Board Certified Radiologist. This report was verified electronically.
[2017-01-22] MEDS ORDERED: LEVA500T33 PO (11:36)
[2017-01-22] MEDS ORDERED: PROM6.256 PO (11:36)
[2017-01-22] MEDS ORDERED: VENTAER INH (11:36)
--- NOTE | 2017-01-22 17:56 | EKG ---
Date Performed: 01/22/2017 Time Performed: 10:08:22 PTAGE: 52 years EKG: Sinus rhythm NONSPECIFIC T-WAVE ABNORMALITY BORDERLINE ECG PREVIOUS TRACING : 10/22/2016 04.49 DOCTOR: Марина Pacheco Interpretating Date/Time 01/22/2017 17:55:35
== END 2017-01-22 12:22 | disposition home or self-care (01) ==
LOC: NEPD 09:31
DX: J40 Bronchitis, not specified as acute or chronic (principal); R11.2 Nausea with vomiting, unspecified; E11.9 Type 2 diabetes mellitus without complications; I10 Essential (primary) hypertension; E78.00 Pure hypercholesterolemia, unspecified; K21.9 Gastro-esophageal reflux disease without esophagitis; F17.200 Nicotine dependence, unspecified, uncomplicated; Z87.19 Personal history of other diseases of the digestive system; Z86.73 Personal history of transient ischemic attack (TIA), and cerebral infarction without residual deficits
CPT/HCPCS: 71020; 80053; 83605; 85025; 87040; 93005; 94640; 94664; 96374; 96375; 99285; J0456; J0696; J2270; J2405; J7050

== ENCOUNTER 2017-08-06 15:08 | Inpatient (IN) | payer OTHER ==
[2017-08-06] VITALS (7 sets, daily range): BP systolic 159–207; BP diastolic 82–91; PULSE 77–95; RESP 16–18; TEMP 98–98.2; O2SAT 77–97
[~2017-08-06] VITALS: Ht 180.3 cm; Wt 153.0 kg
[~2017-08-06 15:08] MED LIST changes: -HYDR-3534 PO; +LEVA500T33 PO; +PROM6.256 PO; +VENTAER INH
[2017-08-06] MEDS ORDERED: PIPERACIL-TAZO 3.375 GM PREMIX 50 ML IV ONE (15:30)
[2017-08-06] MEDS ORDERED: HYDROmorphone HCL PF 2 MG/ML VIAL IV PUSH ONE (15:30)
[2017-08-06] MEDS ORDERED: VANCOMYCIN INJ 1,000 MG in SODIUM CHLOR 0.9% 250 ML INJ 250 ML IV ONE (15:30)
--- NOTE | 2017-08-06 15:38 | PD ---
HPI Chief Complaint: Skin Problem Time Seen by Provider: 15:21 Travel History International Travel<30 days: No Contact w/Intl Traveler<30days: No Traveled to known affect area: No History of Present Illness HPI Patient presents to the emergency department complaining of a 3 day history of "knot on testicle." States for the past couple of days has been bleeding with foul-smelling pus drainage. He denies fever, chills, nausea, vomiting, dysuria , or penile discharge. He does report difficulty ambulating secondary to the pain, fatigue, and testicular swelling. PFSH Past Medical History Hx Anticoagulant Therapy: No Blood Disorders: No Cancer: Yes (SQUAMOUS CELL) Cardiac Catheterization: No Cardiovascular Problems: Yes (HTN) High Cholesterol: Yes Chemotherapy: No Congestive Heart Failure: No Cerebrovascular Accident: Yes (TIA) Diabetes: Yes (INSULIN/METFORMIN) Diminished Hearing: No Endocrine: Yes Gastrointestinal Disorders: Yes (constipation and reflux) GERD: Yes Genitourinary: No Hepatitis: No Hiatal Hernia: No Hypertension: Yes Immune Disorder: No Musculoskeletal: No Neurologic: No Psychiatric: No Reproductive: No Respiratory: No Immunizations Current: Yes Pancreatitis: Yes Thyroid Disease: No Past Surgical History Abdominal Surgery: Yes (VENTRAL HERNIA REPAIR) AICD: No Body Medical Devices: none Cardiac Surgery: No Coronary Artery Bypass Graft: No Ear Surgery: No Endocrine Surgery: No Eye Surgery: No Genitourinary Surgery: Yes (vasectomy) Joint Replacement: No Oral Surgery: No Pacemaker: No Thoracic Surgery: No Other Surgery: Yes ( vasectomy) Social History Alcohol Use: No Tobacco Use: Yes (1PP3D) Substance Use: No Allergies-Medications (Allergen,Severity, Reaction): Coded Allergies: No Known Allergies (Verified Adverse Reaction, Unknown, 08/06/17) Reported Meds & Prescriptions Reported Meds & Active Scripts Active Flomax (Tamsulosin HCl) 0.4 Mg Cap 0.4 Mg PO HS Reported Simvastatin 80 Mg Tab 80 Mg PO DAILY Potassium Chloride ER (Potassium Chloride) 10 Meq Cap 10 Meq PO DAILY Lasix (Furosemide) 20 Mg Tab 20 Mg PO DAILY Metformin ER (Metformin HCl) 1,000 Mg Robbi 1,000 Mg PO BID With evening meal Carvedilol 6.25 Mg Tab 6.25 Mg PO Q12HR Aspirin 325 Mg Tab 325 Mg PO DAILY Review of Systems Except as stated in HPI: all other systems reviewed are Neg Physical Exam Narrative GENERAL: Positive discomfort. SKIN: Focused skin assessment warm/dry. HEAD: Atraumatic. Normocephalic. EYES: Extraocular muscles intact bilaterally. No scleral icterus. No injection or drainage. ENT: No nasal bleeding or discharge. Mucous membranes pink and moist. NECK: Trachea midline. No JVD. CARDIOVASCULAR: Regular rate and rhythm. No murmur appreciated. RESPIRATORY: No accessory muscle use. Clear to auscultation. Breath sounds equal bilaterally. GASTROINTESTINAL: Abdomen soft, non-tender, morbidly obese. MUSCULOSKELETAL: No obvious deformities. No clubbing. No cyanosis. Bilat LE edema. NEUROLOGICAL: Awake and alert. No obvious cranial nerve deficits. Motor grossly within normal limits. Normal speech. PSYCHIATRIC: Appropriate mood and affect; insight and judgment normal : Left testicular pain and swelling, with bloody discharge Data Data Last Documented VS Vital Signs Date Time Temp Pulse Resp B/P (MAP) Pulse Ox O2 Delivery O2 Flow Rate FiO2 08/06/17 17:21 82 16 178/88 (118) 95 Room Air 08/06/17 15:12 98.0 Orders Orders Complete Blood Count With Diff (08/06/17 15:29) Comprehensive Metabolic Panel (08/06/17 15:29) Prothrombin Time / Inr (Pt) (08/06/17 15:29) Act Partial Throm Time (Ptt) (08/06/17 15:29) Blood Culture (08/06/17 15:29) Iv Access Insert/Monitor (08/06/17 15:29) Ecg Monitoring (08/06/17 15:29) Oximetry (08/06/17 15:29) Us Testicles W Doppler (08/06/17 15:29) Vancomycin Inj (Vancomycin Inj) (08/06/17 15:30) Piperacil-Tazo 3.375 Gm Premix (Zosyn 3. (08/06/17 15:30) Hydromorphone Pf Inj (Dilaudid Pf Inj) (08/06/17 15:30) Labs Laboratory Tests Test 08/06/17 15:40 White Blood Count 10.2 TH/MM3 Red Blood Count 5.29 MIL/MM3 Hemoglobin 14.4 GM/DL Hematocrit 43.8 % Mean Corpuscular Volume 82.8 FL Mean Corpuscular Hemoglobin 27.2 PG Mean Corpuscular Hemoglobin Concent 32.8 % Red Cell Distribution Width 12.1 % Platelet Count 231 TH/MM3 Mean Platelet Volume 9.6 FL Neutrophils (%) (Auto) 63.9 % Lymphocytes (%) (Auto) 24.7 % Monocytes (%) (Auto) 6.7 % Eosinophils (%) (Auto) 3.9 % Basophils (%) (Auto) 0.8 % Neutrophils # (Auto) 6.5 TH/MM3 Lymphocytes # (Auto) 2.5 TH/MM3 Monocytes # (Auto) 0.7 TH/MM3 Eosinophils # (Auto) 0.4 TH/MM3 Basophils # (Auto) 0.1 TH/MM3 CBC Comment DIFF FINAL Differential Comment Prothrombin Time 10.0 SEC Prothromb Time International Ratio 1.0 RATIO Activated Partial Thromboplast Time 26.7 SEC Blood Urea Nitrogen 20 MG/DL Creatinine 0.92 MG/DL Random Glucose 279 MG/DL Total Protein 7.8 GM/DL Albumin 3.0 GM/DL Calcium Level 9.0 MG/DL Alkaline Phosphatase 106 U/L Aspartate Amino Transf (AST/SGOT) 22 U/L Alanine Aminotransferase (ALT/SGPT) 33 U/L Total Bilirubin 0.7 MG/DL Sodium Level 133 MEQ/L Potassium Level 4.1 MEQ/L Chloride Level 100 MEQ/L Carbon Dioxide Level 26.6 MEQ/L Anion Gap 6 MEQ/L Estimat Glomerular Filtration Rate 86 ML/MIN MDM Medical Decision Making Medical Screen Exam Complete: Yes Emergency Medical Condition: Yes Interpretation(s) Labs: CBC and coags within normal limits, glucose increased to 279, blood cultures pending U/S: MEASUREMENTS (cm x cm x cm): Right Testicle:__4.0 x 2.6 x 2.5 cm Left Testicle:__4.1 x 2.7 x 1.9 cm FINDINGS: Right Testicle: Homogeneous echotexture without intra or extratesticular mass. Blood flow is symmetric and within normal limits. No hydrocele or varicocele. Epididymis is within normal limits except for some dilated tubular ducts in the epididymis. Left Testicle: Homogeneous echotexture without intra or extratesticular mass. Blood flow is symmetric and within normal limits. No varicocele. However, there is a complex, 5.4 x 2.4 x 2.1 cm complex fluid collection in the lateral aspect of the left scrotum which corresponds to the area of palpable abnormality. 2 small 5 mm cyst are identified in the head of epididymis. Dilated tubular ducts are identified on this side as well. Scrotum: Within normal limits. CONCLUSION: 1. 5.4 x 2.4 x 2.1 cm complex fluid collection in the lateral aspect of the left hemiscrotum that corresponds to the area of palpable abnormality. A scrotal abscess should be considered. 2. Otherwise, both testicles are sonographically normal with preserved blood flow. 3. There appears to be some ductal dilatation of the tubules in the epididymides bilaterally. This may be related to prior vasectomy. Benign- appearing 5 mm cysts in the left epididymis. Differential Diagnosis Cellulitis, abscess, torsion Narrative Course Patient presents to the emergency department complaining of testicular swelling and drainage. He is diabetic with a history of hypertension. He is afebrile, hypertensive at 207/91, remaining vital signs stable. He was placed on a phototypesetting equipment monitor, IV access obtained, labs and ultrasound ordered. Patient is diabetic he was given 1 g IV vancomycin and 3.375 g of IV Zosyn for cellulitis, as well as 1 mg IV Dilaudid for pain reports compliance with his blood pressure medication and his hypertension may be related to pain, will recheck after analgesia. 1719: Urology consulted. 1730: Patient still complaining of pain. Hospitalist paged for admission. Physician Communication Physician Communication Urology: Pain control and DC with Levaquin 750 mg daily 2 weeks and follow-up in clinic next week. If pain is not able to be controlled patient will need to be admitted. Diagnosis Primary Impression: Scrotal abscess Additional Impressions: Hypertension Qualified Codes: I10 - Essential (primary) hypertension Hyperglycemia Admitting Information Admitting Physician Requests: Admit Condition: Stable Tanja Miguel MD August 06, 2017 15:38
[2017-08-06 16:00] LABS: AUTOMATED NEUTROPHIL # 6.5 TH/MM3 (1.8-7.7); BASOPHIL # 0.1 TH/MM3 (0-0.2); BASOPHIL % 0.8 % (0.0-2.0); EOSINOPHIL # 0.4 TH/MM3 (0-0.4); EOSINOPHIL % 3.9 % (0.0-4.0); HEMATOCRIT 43.8 % (39.0-51.0); HEMOGLOBIN 14.4 GM/DL (13.0-17.0); LYMPH % 24.7 % (9.0-44.0); LYMPHOCYTE # 2.5 TH/MM3 (1.0-4.8); MEAN CELL VOLUME 82.8 FL (80.0-100.0); MEAN CORPUSCULAR HEMOGLOBIN 27.2 PG (27.0-34.0); MEAN CORPUSCULAR HGB CONC 32.8 % (32.0-36.0); MEAN PLATELET VOLUME 9.6 FL (7.0-11.0); MONO % 6.7 % (0.0-8.0); MONOCYTE # 0.7 TH/MM3 (0-0.9); NEUT % 63.9 % (16.0-70.0); PLATELET COUNT 231 TH/MM3 (150-450); RED BLOOD COUNT 5.29 MIL/MM3 (4.50-5.90); RED CELL DISTRIBUTION WIDTH 12.1 % (11.6-17.2); WHITE BLOOD COUNT 10.2 TH/MM3 (4.0-11.0)
[2017-08-06 16:10] LABS: CHLORIDE 100 MEQ/L (98-107); SODIUM (NA) 133 MEQ/L (136-145)
[2017-08-06 16:15] LABS: BICARBONATE 26.6 MEQ/L (21.0-32.0); BLOOD UREA NITROGEN 20 MG/DL (7-18); GLUCOSE,RANDOM 279 MG/DL (74-106)
[2017-08-06 16:18] LABS: ALT (GPT) 33 U/L (12-78); AST (GOT) 22 U/L (15-37)
[2017-08-06 16:19] LABS: CREATININE 0.92 MG/DL (0.60-1.30); GLOMERULAR FILTRATION RATE 86 ML/MIN (>89); TOTAL BILIRUBIN ADULT 0.7 MG/DL (0.2-1.0); TOTAL PROTEIN 7.8 GM/DL (6.4-8.2)
[2017-08-06 16:20] LABS: ALKALINE PHOSPHATASE 106 U/L (45-117)
--- NOTE | 2017-08-06 17:01 | RADRPT ---
EXAM DATE: 08/06/2017 4:48 PM EDT AGE/SEX: 52 years / Male INDICATIONS: Palpable lump on the scrotum with drainage x 3 days. CLINICAL DATA: This is the patient's initial encounter. Patient reports that signs and symptoms have been present for 3 days and indicates a pain score of 9/10. MEDICAL/SURGICAL HISTORY: Diabetes mellitus type II. Hypertension. Gastroesophageal reflux di sease. Squamous cell carcinoma. TIA. Pancreatitis. . Vasectomy - 2017. Ventral hernia repair. COMPARISON: No prior [facility] exams available for comparison. No external comparison. MEASUREMENTS (cm x cm x cm): Right Testicle:__4.0 x 2.6 x 2.5 cm Left Testicle:__4.1 x 2.7 x 1.9 cm FINDINGS: Right Testicle: Homogeneous echotexture without intra or extratesticular mass. Blood flow is symmet donny and within normal limits. No hydrocele or varicocele. Epididymis is within normal limits except for some dilated tubular ducts in the epididymis. Left Testicle: Homogeneous echotexture without intra or extratesticular mass. Blood flow is symmetr ic and within normal limits. No varicocele. However, there is a complex, 5.4 x 2.4 x 2.1 cm complex f luid collection in the lateral aspect of the left scrotum which corresponds to the area of palpable a bnormality. 2 small 5 mm cyst are identified in the head of epididymis. Dilated tubular ducts are tristin ntified on this side as well. Scrotum: Within normal limits. CONCLUSION: 1. 5.4 x 2.4 x 2.1 cm complex fluid collection in the lateral aspect of the left hemiscrotum that co rresponds to the area of palpable abnormality. A scrotal abscess should be considered. 2. Otherwise, both testicles are sonographically normal with preserved blood flow. 3. There appears to be some ductal dilatation of the tubules in the epididymides bilaterally. This m ay be related to prior vasectomy. Benign-appearing 5 mm cysts in the left epididymis. Electronically signed by: Jenaro Patel MD 08/06/2017 5:00 PM EDT
[2017-08-06] MEDS ORDERED: MAGNESIUM HYDROXIDE SUSP 30 ML CUP PO PRN (18:00)
[2017-08-06] MEDS ORDERED: LACTULOSE SYRUP 20 GM/30 ML CUP PO PRN (18:00)
[2017-08-06] MEDS ORDERED: BISACODYL 10 MG SUPP RECTAL PRN (18:00)
[2017-08-06] MEDS ORDERED: NALOXONE HCL 0.4 MG/ML AMP IV PUSH PRN (18:00)
[2017-08-06] MEDS ORDERED: SODIUM CHLORIDE 0.9% FLUSH 10 ML FLUSH IV FLUSH PRN (18:00)
[2017-08-06] MEDS ORDERED: SENNOSIDES 8.6 MG TAB PO PRN (18:00)
[2017-08-06] MEDS ORDERED: HYDROmorphone HCL PF 2 MG/ML VIAL IV PUSH PRN (18:30)
[2017-08-06] MEDS ORDERED: Vancomycin Consult Pharmacy 1 EA OTHER SCH (19:00)
--- NOTE | 2017-08-06 19:47 | HHI.HP ---
HPI Service [facility] [facility] Hospitalists Primary Care Physician Ky Guzman MD Admission Diagnosis scrotal abscess, hypertension, diabetic Chief Complaint: 3days scrotal pain and swelling Travel History International Travel<30 Days: No Contact w/Intl Traveler <30 Da: No Traveled to Known Affected Are: No History of Present Illness Patient presents to the emergency department complaining of a 3 day history of "knot on testicle." States for the past couple of days has been bleeding with foul-smelling pus drainage from scrotum. He denies fever, chills, nausea, vomiting, dysuria, or penile discharge. He does report difficulty ambulating secondary to the pain, fatigue, and testicular swelling. Pain also has pain with any movement,ultrasound in er suggests scrotal abscess will start on IV antibiotics ,discussed with urology will probably need surgery will start process to transfer to [facility]. PMH-insulin diabetes and hypertension. Review of Systems Genitourinary: COMPLAINS OF: Testicular Pain, Testicular Swelling Past Family Social History Past Medical History dm,htn,tia gerd skin ca Past Surgical History ventral hernia repair vasectomy Reported Medications flomax.4 hs,simvastatin 80 potassium er 10,lasix 20 metformin 1000 bid,coreg 6.25 q 12 asa 325mg novolog 20 units bid Allergies: Coded Allergies: No Known Allergies (Verified Adverse Reaction, Unknown, 08/06/17) Social History smokes 1ppd no etoh Physical Exam Vital Signs Vital Signs Date Time Temp Pulse Resp B/P (MAP) Pulse Ox O2 Delivery O2 Flow Rate FiO2 08/06/17 18:12 77 16 159/84 (109) 95 Room Air 08/06/17 17:21 82 16 178/88 (118) 95 Room Air 08/06/17 17:12 16 08/06/17 16:10 79 16 176/88 (117) 95 Room Air 08/06/17 15:53 97 Room Air 08/06/17 15:12 98.0 89 18 207/91 (129) 96 Physical Exam GENERAL: This is a well-nourished, well-developed patient, in no apparent distress. SKIN: No rashes, ecchymoses or lesions. Cool and dry. HEAD: Atraumatic. Normocephalic. No temporal or scalp tenderness. EYES: Pupils equal round and reactive. Extraocular motions intact. No scleral icterus. No injection or drainage. ENT: Nose without bleeding, purulent drainage or septal hematoma. Throat without erythema, tonsillar hypertrophy or exudate. Uvula midline. Airway patent. NECK: Trachea midline. No JVD or lymphadenopathy. Supple, nontender, no meningeal signs. CARDIOVASCULAR: Regular rate and rhythm without murmurs, gallops, or rubs. RESPIRATORY: Clear to auscultation. Breath sounds equal bilaterally. No wheezes , rales, or rhonchi. GASTROINTESTINAL: Abdomen soft, non-tender, nondistended. No hepato-splenomegaly , or palpable masses. No guarding. left testicular swelling with bloody discharge and pain on exam MUSCULOSKELETAL: Extremities without clubbing, cyanosis, or edema. No joint tenderness, effusion, or edema noted. No calf tenderness. Negative Homans sign bilaterally. NEUROLOGICAL: Awake and alert. Cranial nerves II through XII intact. Motor and sensory grossly within normal limits. Five out of 5 muscle strength in all muscle groups. Normal speech. Laboratory Laboratory Tests Test 08/06/17 15:40 White Blood Count 10.2 Red Blood Count 5.29 Hemoglobin 14.4 Hematocrit 43.8 Mean Corpuscular Volume 82.8 Mean Corpuscular Hemoglobin 27.2 Mean Corpuscular Hemoglobin Concent 32.8 Red Cell Distribution Width 12.1 Platelet Count 231 Mean Platelet Volume 9.6 Neutrophils (%) (Auto) 63.9 Lymphocytes (%) (Auto) 24.7 Monocytes (%) (Auto) 6.7 Eosinophils (%) (Auto) 3.9 Basophils (%) (Auto) 0.8 Neutrophils # (Auto) 6.5 Lymphocytes # (Auto) 2.5 Monocytes # (Auto) 0.7 Eosinophils # (Auto) 0.4 Basophils # (Auto) 0.1 CBC Comment DIFF FINAL Differential Comment Prothrombin Time 10.0 Prothromb Time International Ratio 1.0 Activated Partial Thromboplast Time 26.7 Blood Urea Nitrogen 20 Creatinine 0.92 Random Glucose 279 Total Protein 7.8 Albumin 3.0 Calcium Level 9.0 Alkaline Phosphatase 106 Aspartate Amino Transf (AST/SGOT) 22 Alanine Aminotransferase (ALT/SGPT) 33 Total Bilirubin 0.7 Sodium Level 133 Potassium Level 4.1 Chloride Level 100 Carbon Dioxide Level 26.6 Anion Gap 6 Estimat Glomerular Filtration Rate 86 Date/Time Source Procedure Growth Status 08/06/17 15:50 Blood Peripheral Aerobic Blood Culture Pending Received 08/06/17 15:50 Blood Peripheral Anaerobic Blood Culture Pending Received Result Diagram: 08/06/17 1540 08/06/17 1540 Imaging Last 24 hours Impressions Scrotum Ultrasound 08/06/17 1529 Signed Impressions: CONCLUSION: 1. 5.4 x 2.4 x 2.1 cm complex fluid collection in the lateral aspect of the le ft hemiscrotum that corresponds to the area of palpable abnormality. A scrotal abscess should be considered. 2. Otherwise, both testicles are sonographically normal with preserved blood f low. 3. There appears to be some ductal dilatation of the tubules in the epididymid es bilaterally. This may be related to prior vasectomy. Benign-appearing 5 mm c ysts in the left epididymis. Course in er started on vancomycin and zosyn and hydromorph for pain control Caprini VTE Risk Assessment Caprini VTE Risk Assessment: Mod/High Risk (score >= 2) Caprini Risk Assessment Model Point Value = 1 Point Value = 2 Point Value = 3 Point Value = 5 Age 41-60 Minor surgery BMI > 25 kg/m2 Swollen legs Varicose veins or History of unexplained or recurrent spontaneous Oral contraceptives or hormone replacement Sepsis (< 1 month) Serious lung disease, including pneumonia (< 1 month) Abnormal pulmonary function Acute myocardial infarction Congestive heart failure (< 1 month) History of inflammatory bowel disease Medical patient at bed rest Age 61-74 Arthroscopic surgery Major open surgery (> 45 min) Laparoscopic surgery (> 45 min) Malignancy Confined to bed (> 72 hours) Immobilizing plaster cast Central venous access Age >= 75 History of VTE Family history of VTE Factor V Leiden Prothrombin [id number] Lupus anticoagulant Anticardiolipin antibodies Elevated serum homocysteine Heparin-induced thrombocytopenia Other congenital or acquired thrombophilia Stroke (< 1 month) Elective arthroplasty Hip, pelvis, or leg fracture Acute spinal cord injury (< 1 month) Prophylaxis Regimen Total Risk Factor Score Risk Level Prophylaxis Regimen 0-1 Low Early ambulation 2 Moderate Order ONE of the following: *Sequential Compression Device (SCD) *Heparin 5000 units SQ BID 3-4 Higher Order ONE of the following medications: *Heparin 5000 units SQ TID *Enoxaparin/Lovenox 40 mg SQ daily (WT < 150 kg, CrCl > 30 mL/min) *Enoxaparin/Lovenox 30 mg SQ daily (WT < 150 kg, CrCl > 10-29 mL/min) *Enoxaparin/Lovenox 30 mg SQ BID (WT < 150 kg, CrCl > 30 mL/min) AND/OR *Sequential Compression Device (SCD) 5 or more Highest Order ONE of the following medications: *Heparin 5000 units SQ TID (Preferred with Epidurals) *Enoxaparin/Lovenox 40 mg SQ daily (WT < 150 kg, CrCl > 30 mL/min) *Enoxaparin/Lovenox 30 mg SQ daily (WT < 150 kg, CrCl > 10-29 mL/min) *Enoxaparin/Lovenox 30 mg SQ BID (WT < 150 kg, CrCl > 30 mL/min) AND *Sequential Compression Device (SCD) Assessment and Plan Problem List: (1) Scrotal abscess ICD Codes: N49.2 - Inflammatory disorders of scrotum Status: Acute Plan: consult urology transfer to [facility] for possible surgery IV vancomycin and zoysn follow labs (2) Insulin dependent type 2 diabetes mellitus ICD Codes: E11.9 - Type 2 diabetes mellitus without complications; Z79.4 - FPC (current) use of insulin Status: Chronic Plan: continue novolog 20 bid for now and metformin (3) HTN (hypertension), benign ICD Codes: I10 - Essential (primary) hypertension Status: Chronic Plan: continue current medications Assessment and Plan further plan as case develops Code Status full Discussed Condition With patient Physician Certification 2 Midnight Certification Type: Admission for Inpatient Services Order for Inpatient Services The services are ordered in accordance with Medicare regulations or non- Medicare payer requirements, as applicable. In the case of services not specified as inpatient-only, they are appropriately provided as inpatient services in accordance with the 2-midnight benchmark. Estimated LOS (days): 3 3 days is the estimated time the patient will need to remain in the hospital, assuming treatment plan goals are met and no additional complications. Post-Hospital Plan: Not yet determined John Servin MD August 06, 2017 19:47
[2017-08-06] MEDS ORDERED: ONDANSETRON ODT 4 MG TAB SL PRN (20:00)
[2017-08-06] MEDS: DOCUSATE SODIUM 50 MG/SENNA 8.6 MG TAB PO SCH (21:40)
[2017-08-06] MEDS: SODIUM CHLORIDE 0.9% FLUSH 10 ML FLUSH IV FLUSH SCH (21:41)
[2017-08-06] MEDS: PIPERACIL-TAZO 3.375 GM PREMIX 50 ML IV SCH (21:41)
[2017-08-06] MEDS: PANTOPRAZOLE SODIUM 40 MG VIAL IV PUSH SCH (21:41)
[2017-08-06] MEDS: CARVEDILOL 6.25 MG TAB PO SCH (21:41)
[2017-08-06] MEDS: TAMSULOSIN HCL 0.4 MG CAP PO SCH (21:41)
[2017-08-06] MEDS ORDERED: VANCOMYCIN INJ 2,200 MG in SODIUM CHLORID 0.9% 500 ML INJ 500 ML IV SCH (23:00)
[2017-08-07 03:11] VITALS: BP 147/77; PULSE 81; RESP 18; TEMP 98; O2SAT 96
[2017-08-07] MEDS: PIPERACIL-TAZO 3.375 GM PREMIX 50 ML IV SCH ×4 (03:17→22:46)
[2017-08-07 07:52] LABS: AUTOMATED NEUTROPHIL # 4.9 TH/MM3 (1.8-7.7); BASOPHIL # 0.1 TH/MM3 (0-0.2); BASOPHIL % 0.6 % (0.0-2.0); EOSINOPHIL # 0.4 TH/MM3 (0-0.4); EOSINOPHIL % 4.2 % (0.0-4.0); HEMATOCRIT 41.7 % (39.0-51.0); HEMOGLOBIN 14.2 GM/DL (13.0-17.0); LYMPH % 27.4 % (9.0-44.0); LYMPHOCYTE # 2.4 TH/MM3 (1.0-4.8); MEAN CELL VOLUME 83.3 FL (80.0-100.0); MEAN CORPUSCULAR HEMOGLOBIN 28.5 PG (27.0-34.0); MEAN CORPUSCULAR HGB CONC 34.2 % (32.0-36.0); MEAN PLATELET VOLUME 10.1 FL (7.0-11.0); MONO % 10.9 % (0.0-8.0); MONOCYTE # 0.9 TH/MM3 (0-0.9); NEUT % 56.9 % (16.0-70.0); PLATELET COUNT 212 TH/MM3 (150-450); RED CELL DISTRIBUTION WIDTH 12.8 % (11.6-17.2); WHITE BLOOD COUNT 8.7 TH/MM3 (4.0-11.0)
[2017-08-07 08:00] VITALS: BP 150/65; PULSE 76; RESP 16; TEMP 97.6; O2SAT 97
[2017-08-07 08:36] LABS: ALBUMIN 2.6 GM/DL (3.4-5.0); BICARBONATE 25.7 MEQ/L (21.0-32.0); BLOOD UREA NITROGEN 21 MG/DL (7-18); CALCIUM 8.5 MG/DL (8.5-10.1); CHLORIDE 101 MEQ/L (98-107); CREATININE 0.86 MG/DL (0.60-1.30); GLOMERULAR FILTRATION RATE 93 ML/MIN (>89); GLUCOSE,RANDOM 263 MG/DL (74-106); SODIUM (NA) 135 MEQ/L (136-145)
[2017-08-07 08:37] LABS: ALT (GPT) 32 U/L (12-78); AST (GOT) 19 U/L (15-37)
[2017-08-07 08:39] LABS: ALKALINE PHOSPHATASE 78 U/L (45-117); TOTAL BILIRUBIN ADULT 1.1 MG/DL (0.2-1.0); TOTAL PROTEIN 7.1 GM/DL (6.4-8.2)
[2017-08-07] MEDS: metFORMIN HCL 500 MG TAB PO SCH ×2 (09:14→16:43)
[2017-08-07] MEDS: CARVEDILOL 6.25 MG TAB PO SCH ×2 (09:14→19:44)
[2017-08-07] MEDS: DOCUSATE SODIUM 50 MG/SENNA 8.6 MG TAB PO SCH ×2 (09:14→19:44)
[2017-08-07] MEDS: POTASSIUM CHLORIDE 10 MEQ CONTROLLED RELEASE TAB PO SCH (09:14)
[2017-08-07] MEDS: FUROSEMIDE 20 MG TAB PO SCH (09:14)
[2017-08-07] MEDS: INSULIN ASPART 1,000 UNITS/10 ML VIAL SQ SCH ×2 (09:16→16:44)
[2017-08-07] MEDS: SODIUM CHLORIDE 0.9% FLUSH 10 ML FLUSH IV FLUSH SCH ×2 (09:16→19:45)
[2017-08-07] MEDS: VANCOMYCIN INJ 2,000 MG in SODIUM CHLORID 0.9% 500 ML INJ 500 ML IV SCH ×2 (11:02→23:29)
[2017-08-07 12:00] VITALS: BP 136/63; PULSE 95; RESP 19; TEMP 97.6; O2SAT 95
--- NOTE | 2017-08-07 13:24 | MB ---
cc: Sarabjit Headley MD DATE: 08/07/2017 REASON FOR CONSULTATION: Left scrotal abscess. HISTORY OF PRESENT ILLNESS: Patient is a 52-year-old, obese, diabetic male who presented to the emergency department at [facility] with a 3-day history of a painful "knot" on his testicle. He states for the past couple days, he has been having some bleeding and foul smelling purulent drainage from his scrotum. However, the pain and swelling and redness had just progressively worsened in the last 3 days when he decided to come to the ER for further evaluation. He denies fevers, chills, nausea, vomiting, dysuria, hematuria or penile discharge. He had a scrotal ultrasound done in the ER, which suggested a scrotal abscess on the left side approximately 5 cm in size. He was then started on IV antibiotics and transferred to the [facility] in preparation for possible incision and drainage of this scrotal abscess. The patient denies prior episodes. He denies any lower urinary tract symptoms. He denies any history of kidney stones or urinary tract infections. He continues to have pain today that is an 8/10 at its worst. He is currently on vancomycin and Zosyn. PAST MEDICAL HISTORY: Significant for diabetes, hypertension, GERD, skin cancer, TIA. PAST SURGICAL HISTORY: Ventral hernia repair. He has had a vasectomy. HOME MEDICATIONS: Include: 1. Flomax. 2. Simvastatin. 3. Potassium. 4. Lasix. 5. Metformin. 6. Coreg. 7. Aspirin. 8. NovoLog. ALLERGIES: NO KNOWN DRUG ALLERGIES. SOCIAL HISTORY: He smokes 1 pack per day. No alcohol or illicit drugs. FAMILY HISTORY: Denies urolithiasis or genitourinary malignancies. REVIEW OF SYSTEMS: See HPI, otherwise 12 systems reviewed otherwise are negative. PHYSICAL EXAMINATION: VITAL SIGNS: Temperature 97.6, pulse 76, respiration rate 16, BP 150/65, saturating 97% on room air. GENERAL: He is alert and oriented x 3, in no apparent distress, pleasant and cooperative, obese male who appears older than his stated age. HEAD: Normocephalic, atraumatic. NECK: Supple. Trachea is midline. No JVD. EYES: No scleral icterus. Extraocular muscles intact. LUNGS: Clear to auscultation bilaterally. No wheezes, rales or rhonchi. HEART: Regular rate and rhythm. No murmurs, gallops or rubs. ABDOMEN: Soft, but obese, nontender, nondistended, positive bowel sounds. GENITOURINARY: He has no CVA tenderness bilaterally. His penis is circumcised. Testes are descended bilaterally, normal in size and consistency without mass. He does have a fluctuant, indurated area that is tender to palpation in his left lateral side of his scrotum, extending to his perineum, consistent with a scrotal and perineal abscess. No evidence of any purulent drainage noted at this time. EXTREMITIES: Nontender. No clubbing, cyanosis, or edema. MUSCULOSKELETAL: Full range of motion of all 4 extremities. NEUROLOGIC: Cranial nerves 2-12 intact. Strength 5/5 all 4 extremities. PSYCHIATRIC: Normal affect, answers questions appropriately. SKIN: No ulcers or rashes are visible. Mucous membranes pink and moist. LABORATORY DATA: White count 8.7, hemoglobin 14.2, hematocrit 41.7, platelet count is 212. Sodium 135, potassium 4.3, chloride 101, bicarbonate 25.7, creatinine 0.86, BUN 21, glucose 263. His INR is 1.0. IMAGING STUDIES: Scrotal ultrasound images were reviewed by myself and interpreted. He does have a 5 cm fluid collection in the left lateral scrotum consistent with a scrotal abscess. ASSESSMENT: The patient is a 52-year-old diabetic male who presents with a left scrotal abscess. PLAN: We will go ahead and make the patient n.p.o. after midnight with plans to drain his abscess in the morning. Recommend continuing his vancomycin and Zosyn per primary team. Thank you for this consult. MD BROOKE Pinzon/REID , 12:49 PM , 01:22 PM
[2017-08-07 16:00] VITALS: BP 135/70; PULSE 75; RESP 16; TEMP 98.8; O2SAT 96
[2017-08-07] MEDS: TAMSULOSIN HCL 0.4 MG CAP PO SCH (19:44)
[2017-08-07] MEDS: PANTOPRAZOLE SODIUM 40 MG VIAL IV PUSH SCH (19:45)
[2017-08-07 19:59] VITALS: PULSE 83
[2017-08-07 20:00] VITALS: BP 152/74; PULSE 99; RESP 18; TEMP 98.1; O2SAT 95
--- NOTE | 2017-08-07 22:02 | HHI.PR ---
Subjective Remarks Patient admitted with scrotal abscess and transfered to [facility] for surgery drainage in am . Patient stable on IV antibiotics vancomycin and zosyn labs stable Objective Vitals GENERAL: SKIN: Warm and dry. scrotal swelling redness HEAD: Atraumatic. Normocephalic. EYES: Pupils equal and round. No scleral icterus. No injection or drainage. ENT: No nasal bleeding or discharge. Mucous membranes pink and moist. NECK: Trachea midline. No JVD. CARDIOVASCULAR: Regular rate and rhythm. RESPIRATORY: No accessory muscle use. Clear to auscultation. Breath sounds equal bilaterally. GASTROINTESTINAL: Abdomen soft, non-tender, nondistended. Hepatic and splenic margins not palpable. MUSCULOSKELETAL: Extremities without clubbing, cyanosis, or edema. No obvious deformities. NEUROLOGICAL: Awake and alert. No obvious cranial nerve deficits. Motor grossly within normal limits. Five out of 5 muscle strength in the arms and legs. Normal speech. PSYCHIATRIC: Appropriate mood and affect; insight and judgment normal. Vital Signs Date Time Temp Pulse Resp B/P (MAP) Pulse Ox O2 Delivery O2 Flow Rate FiO2 08/07/17 20:00 98.1 99 18 152/74 (100) 95 08/07/17 16:00 98.8 75 16 135/70 (91) 96 08/07/17 12:00 97.6 95 19 136/63 (87) 95 08/07/17 08:00 97.6 76 16 150/65 (93) 97 08/07/17 03:11 98.0 81 18 147/77 (100) 96 08/06/17 22:00 98.2 95 16 162/82 (108) 77 08/07/17 08/07/17 08/08/17 15:00 23:00 07:00 Intake Total 1820 ml Balance 1820 ml Intake Oral 1200 ml IV Total 620 ml # Voids 9 # Bowel Movements 0 Result Diagram: 08/07/17 0532 08/07/17 0532 Imaging Last 24 hours Impressions Scrotum Ultrasound 08/06/17 1529 Signed Impressions: CONCLUSION: 1. 5.4 x 2.4 x 2.1 cm complex fluid collection in the lateral aspect of the le ft hemiscrotum that corresponds to the area of palpable abnormality. A scrotal abscess should be considered. 2. Otherwise, both testicles are sonographically normal with preserved blood f low. 3. There appears to be some ductal dilatation of the tubules in the epididymid es bilaterally. This may be related to prior vasectomy. Benign-appearing 5 mm c ysts in the left epididymis. A/P Problem List: (1) Scrotal abscess ICD Codes: N49.2 - Inflammatory disorders of scrotum Status: Acute Plan: surgery planned for am,continue IV vancomycin and zoysn follow labs (2) Insulin dependent type 2 diabetes mellitus ICD Codes: E11.9 - Type 2 diabetes mellitus without complications; Z79.4 - halfway (current) use of insulin Status: Chronic Plan: continue novolog 20 bid for now and metformin (3) HTN (hypertension), benign ICD Codes: I10 - Essential (primary) hypertension Status: Chronic Plan: continue current medications Assessment and Plan for drainage in am John Servin MD August 07, 2017 22:02
[2017-08-08] VITALS (7 sets, daily range): BP systolic 118–170; BP diastolic 63–79; PULSE 70–95; RESP 17–19; TEMP 97.4–98.6; O2SAT 90–97
[2017-08-08] MEDS: PIPERACIL-TAZO 3.375 GM PREMIX 50 ML IV SCH ×4 (04:46→22:38)
[2017-08-08] MEDS: INSULIN ASPART 1,000 UNITS/10 ML VIAL SQ SCH ×2 (08:00→16:52)
[2017-08-08] MEDS ORDERED: ACETAMINOPHEN 1000 MG/100 ML 100 ML IV ONE (08:03)
[2017-08-08] MEDS: CARVEDILOL 6.25 MG TAB PO SCH ×2 (08:37→19:36)
[2017-08-08] MEDS: FUROSEMIDE 20 MG TAB PO SCH (08:37)
[2017-08-08] MEDS: DOCUSATE SODIUM 50 MG/SENNA 8.6 MG TAB PO SCH ×2 (08:37→19:36)
[2017-08-08] MEDS: metFORMIN HCL 500 MG TAB PO SCH ×2 (08:37→16:52)
[2017-08-08] MEDS: POTASSIUM CHLORIDE 10 MEQ CONTROLLED RELEASE TAB PO SCH (08:38)
[2017-08-08] MEDS: SODIUM CHLORIDE 0.9% FLUSH 10 ML FLUSH IV FLUSH SCH ×2 (08:38→19:37)
[2017-08-08] MEDS ORDERED: VANCOMYCIN TROUGH ONE (10:45)
[2017-08-08] MEDS: VANCOMYCIN INJ 2,000 MG in SODIUM CHLORID 0.9% 500 ML INJ 500 ML IV SCH ×2 (11:20→23:17)
[2017-08-08] MEDS ORDERED: ONDANSETRON HCL 4 MG/2 ML VIAL IV PUSH ONE (12:00)
[2017-08-08] MEDS ORDERED: LIDOCAINE HCL 1% PF 5 ML SYRINGE OTHER ONE (12:00)
[2017-08-08] MEDS ORDERED: LACTATED RINGER'S 1000 ML INJ 1,000 ML IV ONE (12:00)
[2017-08-08] MEDS ORDERED: DEXAMETHASONE SOD PHOS 4 MG/ML VIAL IV ONE (12:00)
[2017-08-08] MEDS ORDERED: PROPOFOL 200 MG/20 ML AMP IV ONE (12:00)
[2017-08-08] MEDS ORDERED: SUCCINYLCHOLINE CHLORIDE 100 MG/5 ML SYRINGE IV PUSH ONE (12:00)
--- NOTE | 2017-08-08 13:09 | EKG ---
Date Performed: 08/07/2017 Time Performed: 11:22:11 PTAGE: 52 years EKG: Sinus rhythm MODERATE INTRAVENTRICULAR CONDUCTION DELAY BORDERLINE ECG Compared to PREVIOUS TRACING , there is improvement in the T-wave changes in aVL, otherwise no change . PREVIOUS TRACIN01/22/2017 10.08 DOCTOR: Kvng Simeon Interpretating Date/Time 08/08/2017 13:08:25
[2017-08-08] MEDS ORDERED: MIDAZOLAM HCL 2 MG/2 ML VIAL ONE (13:17)
[2017-08-08] MEDS ORDERED: DO NOT ADM ANY ANTICOAGULANT DRUGS PRN (13:30)
--- NOTE | 2017-08-08 13:34 | MP ---
cc: Sarabjit Headley MD DATE OF OPERATION: DATE OF OPERATION: 08/08/2017. PREOPERATIVE DIAGNOSIS: Left scrotal abscess. POSTOPERATIVE DIAGNOSIS: Left scrotal abscess. PROCEDURE PERFORMED: Incision and drainage of left scrotal abscess. SURGEON: Dr. Sarabjit Headley MD ANESTHESIA: General. COMPLICATIONS: None. PREOPERATIVE ANTIBIOTICS: Vancomycin and Zosyn. DRAINS: 6-Dutch Steele catheter to drainage. SPECIMENS: Aerobic and anaerobic culture sent. DISPOSITION: Stable to recovery. INDICATIONS FOR PROCEDURE: The patient is a 52-year-old male with history of diabetes, who presented to [facility] on Wednesday evening with complaints of left scrotal pain and swelling for the last 3 days. He had a scrotal ultrasound performed, which showed a 5 cm fluid collection. He was transferred to [facility] for operative intervention. After risks and benefits, and alternatives were explained the patient agreed to proceed. Informed consent was obtained. DETAILS OF PROCEDURE: The patient was properly identified and brought back to the operating room and placed supine on the operating table. Appropriate timeout was performed. Under the direction of Anesthesiology, the patient was intubated induced under general anesthetic. He had received vancomycin and Zosyn around the clock, therefore preoperative antibiotics were not indicted. He was then placed in dorsal lithotomy position, prepped and draped in the normal sterile fashion. A 6-Dutch Steele catheter was then placed under sterile technique. Clear urine returned. An Approximately 5 cm long incision was made in the indurated fluctuant area in the left posterior scrotum and significant amount of blood and purulent material was expressed. A hemostat was then used to open up any additional loculations within the abscess area. At this time, the wound was then irrigated out with normal saline. Quarter inch iodoform packing was then placed inside the wound after hemostasis was achieved. Cultures were then taken of the wound. This concluded the procedure. The patient was extubated and sent to recovery room in stable condition and will be transferred back to the floor for routine postoperative care. Will recommend changing dressings daily. Sarabjit Headley MD EMF/TL , 12:57 PM , 01:33 PM
[2017-08-08] MEDS ORDERED: *PROMETHAZINE 25 MG/ML VIAL PERIprocedural use ONLY ONE (13:36)
--- NOTE | 2017-08-08 18:07 | HHI.PR ---
Subjective Remarks No new complaints. Pain is controlled. Objective Vitals Vital Signs Date Time Temp Pulse Resp B/P (MAP) Pulse Ox O2 Delivery O2 Flow Rate FiO2 08/08/17 16:00 98.6 72 19 131/63 (85) 93 08/08/17 14:11 97.4 71 17 162/72 (102) 90 08/08/17 14:00 98.5 69 16 145/69 (94) 97 Nasal Cannula 2 08/08/17 13:45 69 19 144/66 (92) 97 Nasal Cannula 2 08/08/17 13:30 68 12 142/68 (92) 99 Nasal Cannula 2 08/08/17 13:15 68 13 150/67 (94) 99 Nasal Cannula 2 08/08/17 13:13 98.5 67 18 155/77 (103) 98 Nasal Cannula 2 08/08/17 11:30 98.0 70 18 118/67 (84) 08/08/17 08:00 98.4 72 19 130/63 (85) 96 08/08/17 04:00 98.0 90 18 144/79 (100) 93 08/08/17 04:00 73 08/08/17 00:00 98.3 95 18 150/72 (98) 92 08/08/17 00:00 77 08/07/17 20:00 98.1 99 18 152/74 (100) 95 08/07/17 19:59 83 08/08/17 08/08/17 08/09/17 15:00 23:00 07:00 Intake Total 1000 ml 100 ml Output Total 475 ml Balance 525 ml 100 ml IV Total 0 ml 100 ml Other 1000 ml Output Urine Total 450 ml Estimated Blood Loss 25 ml Result Diagram: 08/07/17 0532 08/07/17 0532 Imaging Last Impressions Scrotum Ultrasound 08/06/17 1473 Signed Impressions: CONCLUSION: 1. 5.4 x 2.4 x 2.1 cm complex fluid collection in the lateral aspect of the le ft hemiscrotum that corresponds to the area of palpable abnormality. A scrotal abscess should be considered. 2. Otherwise, both testicles are sonographically normal with preserved blood f low. 3. There appears to be some ductal dilatation of the tubules in the epididymid es bilaterally. This may be related to prior vasectomy. Benign-appearing 5 mm c ysts in the left epididymis. Objective Remarks GENERAL: This is a well-nourished, well-developed patient, in no apparent distress. CARDIOVASCULAR: Regular rate and rhythm without murmurs, gallops, or rubs. RESPIRATORY: Clear to auscultation. Breath sounds equal bilaterally. No wheezes , rales, or rhonchi. GASTROINTESTINAL: Abdomen soft, non-tender, nondistended. Normal active bowel sounds MUSCULOSKELETAL: Extremities without clubbing, cyanosis, or edema. NEURO: Alert & Oriented x4 to person, place, time, situation. Moves all ext x4 : scrotal swelling, packing noted at left scrotum A/P Problem List: (1) Scrotal abscess ICD Codes: N49.2 - Inflammatory disorders of scrotum Status: Acute Plan: - Pt presented to the ER 08/07/17 with c/o 3 day h/o scrotal pain, swelling, and drainage - Scrotal US (08/07/17) 1. 5.4 x 2.4 x 2.1 cm complex fluid collection in the lateral aspect of the left hemiscrotum that corresponds to the area of palpable abnormality. A scrotal abscess should be considered. - Pt underwent I&D of left hemiscrotum performed by Urology, Dr. Headley (08/08/17) - Blood culture (08/06) --> NGTD - Intraoperative Cultures (08/06) --> pending - Vancomycin (08/06 - present) - Zosyn (08/06 - present) - supportive care - lovenox for DVT prophylaxis (2) Insulin dependent type 2 diabetes mellitus ICD Codes: E11.9 - Type 2 diabetes mellitus without complications; Z79.4 - [employer] (current) use of insulin Status: Chronic Plan: continue novolog 20 bid for now and metformin (3) HTN (hypertension), benign ICD Codes: I10 - Essential (primary) hypertension Status: Chronic Plan: - Clint Ayoub DO August 08, 2017 18:07
[2017-08-08] MEDS ORDERED: DEXTROSE 50% IN WATER 50 ML VIAL(D50) IV PUSH PRN (18:30)
[2017-08-08] MEDS ORDERED: GLUCAGON 1 MG/ML VIAL OTHER PRN (18:30)
[2017-08-08] MEDS: TAMSULOSIN HCL 0.4 MG CAP PO SCH (19:36)
[2017-08-08] MEDS: PANTOPRAZOLE SODIUM 40 MG VIAL IV PUSH SCH (19:36)
[2017-08-08] MEDS: ENOXAPARIN SODIUM 40 MG/0.4 ML SYRINGE SQ SCH (19:37)
[2017-08-08] MEDS: INSULIN ASPART SUPPLEMENTAL SCALE SQ SCH (19:38)
[2017-08-09] VITALS (7 sets, daily range): BP systolic 145–157; BP diastolic 58–73; PULSE 69–94; RESP 16–18; TEMP 97.7–98.8; O2SAT 93–98
[2017-08-09] MEDS: PIPERACIL-TAZO 3.375 GM PREMIX 50 ML IV SCH ×4 (04:38→23:06)
[2017-08-09] MEDS: ENOXAPARIN SODIUM 40 MG/0.4 ML SYRINGE SQ SCH ×2 (08:00→20:43)
[2017-08-09] MEDS: INSULIN DETEMIR 100 UNITS/ML VIAL SQ SCH ×3 (08:00→20:43)
[2017-08-09] MEDS: INSULIN ASPART SUPPLEMENTAL SCALE SQ SCH ×4 (08:00→20:45)
[2017-08-09] MEDS: POTASSIUM CHLORIDE 10 MEQ CONTROLLED RELEASE TAB PO SCH (08:59)
[2017-08-09] MEDS: FUROSEMIDE 20 MG TAB PO SCH (08:59)
[2017-08-09] MEDS: DOCUSATE SODIUM 50 MG/SENNA 8.6 MG TAB PO SCH ×2 (08:59→20:42)
[2017-08-09] MEDS: CARVEDILOL 6.25 MG TAB PO SCH ×2 (09:00→20:42)
[2017-08-09] MEDS: SODIUM CHLORIDE 0.9% FLUSH 10 ML FLUSH IV FLUSH SCH ×2 (09:00→20:43)
--- NOTE | 2017-08-09 09:45 | HHI.PR ---
Subjective Remarks Patient laying in bed finishing breakfast. Offers no new complaints denies pain Objective Vitals Vital Signs Date Time Temp Pulse Resp B/P (MAP) Pulse Ox O2 Delivery O2 Flow Rate FiO2 08/09/17 08:00 98.2 69 16 150/58 (88) 98 08/09/17 04:00 71 08/09/17 04:00 98.8 94 18 155/72 (99) 93 08/09/17 00:00 98.1 93 18 157/73 (101) 97 08/09/17 00:00 77 08/08/17 20:00 97.9 92 18 170/76 (107) 97 08/08/17 16:00 98.6 72 19 131/63 (85) 93 08/08/17 14:11 97.4 71 17 162/72 (102) 90 08/08/17 14:00 98.5 69 16 145/69 (94) 97 Nasal Cannula 2 08/08/17 13:45 69 19 144/66 (92) 97 Nasal Cannula 2 08/08/17 13:30 68 12 142/68 (92) 99 Nasal Cannula 2 08/08/17 13:15 68 13 150/67 (94) 99 Nasal Cannula 2 08/08/17 13:13 98.5 67 18 155/77 (103) 98 Nasal Cannula 2 08/08/17 11:30 98.0 70 18 118/67 (84) Result Diagram: 08/07/17 0532 08/07/17 0532 Other Results Laboratory Tests Test 08/06/17 15:40 08/07/17 05:32 08/08/17 10:30 White Blood Count 10.2 TH/MM3 8.7 TH/MM3 Red Blood Count 5.29 MIL/MM3 5.00 MIL/MM3 Hemoglobin 14.4 GM/DL 14.2 GM/DL Hematocrit 43.8 % 41.7 % Mean Corpuscular Volume 82.8 FL 83.3 FL Mean Corpuscular Hemoglobin 27.2 PG 28.5 PG Mean Corpuscular Hemoglobin Concent 32.8 % 34.2 % Red Cell Distribution Width 12.1 % 12.8 % Platelet Count 231 TH/MM3 212 TH/MM3 Mean Platelet Volume 9.6 FL 10.1 FL Neutrophils (%) (Auto) 63.9 % 56.9 % Lymphocytes (%) (Auto) 24.7 % 27.4 % Monocytes (%) (Auto) 6.7 % 10.9 % Eosinophils (%) (Auto) 3.9 % 4.2 % Basophils (%) (Auto) 0.8 % 0.6 % Neutrophils # (Auto) 6.5 TH/MM3 4.9 TH/MM3 Lymphocytes # (Auto) 2.5 TH/MM3 2.4 TH/MM3 Monocytes # (Auto) 0.7 TH/MM3 0.9 TH/MM3 Eosinophils # (Auto) 0.4 TH/MM3 0.4 TH/MM3 Basophils # (Auto) 0.1 TH/MM3 0.1 TH/MM3 CBC Comment DIFF FINAL DIFF FINAL Differential Comment Prothrombin Time 10.0 SEC Prothromb Time International Ratio 1.0 RATIO Activated Partial Thromboplast Time 26.7 SEC Blood Urea Nitrogen 20 MG/DL 21 MG/DL Creatinine 0.92 MG/DL 0.86 MG/DL Random Glucose 279 MG/DL 263 MG/DL Total Protein 7.8 GM/DL 7.1 GM/DL Albumin 3.0 GM/DL 2.6 GM/DL Calcium Level 9.0 MG/DL 8.5 MG/DL Alkaline Phosphatase 106 U/L 78 U/L Aspartate Amino Transf (AST/SGOT) 22 U/L 19 U/L Alanine Aminotransferase (ALT/SGPT) 33 U/L 32 U/L Total Bilirubin 0.7 MG/DL 1.1 MG/DL Sodium Level 133 MEQ/L 135 MEQ/L Potassium Level 4.1 MEQ/L 4.3 MEQ/L Chloride Level 100 MEQ/L 101 MEQ/L Carbon Dioxide Level 26.6 MEQ/L 25.7 MEQ/L Anion Gap 6 MEQ/L 8 MEQ/L Estimat Glomerular Filtration Rate 86 ML/MIN 93 ML/MIN Vancomycin Level Trough 13.0 MCG/ML Imaging Last Impressions Scrotum Ultrasound 08/06/17 1529 Signed Impressions: CONCLUSION: 1. 5.4 x 2.4 x 2.1 cm complex fluid collection in the lateral aspect of the le ft hemiscrotum that corresponds to the area of palpable abnormality. A scrotal abscess should be considered. 2. Otherwise, both testicles are sonographically normal with preserved blood f low. 3. There appears to be some ductal dilatation of the tubules in the epididymid es bilaterally. This may be related to prior vasectomy. Benign-appearing 5 mm c ysts in the left epididymis. Objective Remarks GENERAL: This is a morbidly obese, well-developed patient, in no apparent distress. CARDIOVASCULAR: Regular rate and rhythm RESPIRATORY: Clear to auscultation. Breath sounds equal bilaterally. GASTROINTESTINAL: Abdomen soft, non-tender, nondistended. Normal active bowel sounds : scrotal swelling, packing noted at left scrotum MUSCULOSKELETAL: Extremities without clubbing, cyanosis, or edema. NEURO: Alert & Oriented x4 to person, place, time, situation. Moves all ext x4 Procedures Incision and drainage of left scrotal abscess 08/08/[address] Headley A/P Problem List: (1) Scrotal abscess ICD Codes: N49.2 - Inflammatory disorders of scrotum Status: Acute Plan: Scrotal abscess - Pt presented to the ER 08/07/17 with c/o 3 day h/o scrotal pain, swelling, and drainage - Scrotal US (08/07/17) 1. 5.4 x 2.4 x 2.1 cm complex fluid collection in the lateral aspect of the left hemiscrotum that corresponds to the area of palpable abnormality. A scrotal abscess should be considered. - Pt underwent I&D of left hemiscrotum performed by Urology, Dr. Headley (08/08/17) - Blood culture (08/06) --> NGTD - Intraoperative Cultures (08/06) --> pending - Vancomycin (08/06 - present) - Zosyn (08/06 - present) - recheck CBC and BMP in AM - supportive care Insulin dependent type 2 diabetes mellitus increase Levemir to 15 units BID continue metformin acc checks ACHS with SSI HTN (hypertension), benign - coreg Lovenox for DVT prophylaxis (2) Insulin dependent type 2 diabetes mellitus ICD Codes: E11.9 - Type 2 diabetes mellitus without complications; Z79.4 - prison (current) use of insulin Status: Chronic (3) HTN (hypertension), benign ICD Codes: I10 - Essential (primary) hypertension Status: Chronic Assessment and Plan Patient examined. Assessment and plan formulated with Chanda Kelly PA-C. I agree with the above. scrotal abscess s/p drainage f/u pending cultures plan for d/c tomorrow with [facility] and wound care/bandage change and po abx. discussed with Urology. Chanda Kelly August 09, 2017 09:45 Kvng Hernandez MD August 09, 2017 21:45
[2017-08-09] MEDS: metFORMIN HCL 500 MG TAB PO SCH ×2 (10:05→18:24)
[2017-08-09] MEDS: VANCOMYCIN INJ 2,000 MG in SODIUM CHLORID 0.9% 500 ML INJ 500 ML IV SCH ×2 (11:32→23:44)
[2017-08-09] MEDS: PANTOPRAZOLE SODIUM 40 MG VIAL IV PUSH SCH (20:42)
[2017-08-09] MEDS: TAMSULOSIN HCL 0.4 MG CAP PO SCH (20:49)
[2017-08-10] VITALS: BP 121/55; PULSE 81; RESP 17; TEMP 97.7; O2SAT 95
[2017-08-10 04:06] VITALS: PULSE 70
[2017-08-10] MEDS: PIPERACIL-TAZO 3.375 GM PREMIX 50 ML IV SCH ×2 (04:42→09:17)
[2017-08-10 07:20] LABS: BASOPHIL # 0.1 TH/MM3 (0-0.2); BASOPHIL % 1.1 % (0.0-2.0); EOSINOPHIL # 0.3 TH/MM3 (0-0.4); EOSINOPHIL % 4.6 % (0.0-4.0); HEMATOCRIT 39.9 % (39.0-51.0); HEMOGLOBIN 13.8 GM/DL (13.0-17.0); LYMPH % 38.1 % (9.0-44.0); LYMPHOCYTE # 2.4 TH/MM3 (1.0-4.8); MEAN CELL VOLUME 82.8 FL (80.0-100.0); MEAN CORPUSCULAR HEMOGLOBIN 28.6 PG (27.0-34.0); MEAN CORPUSCULAR HGB CONC 34.6 % (32.0-36.0); MEAN PLATELET VOLUME 8.9 FL (7.0-11.0); MONOCYTE # 0.6 TH/MM3 (0-0.9); NEUT % 47.2 % (16.0-70.0); PLATELET COUNT 232 TH/MM3 (150-450); RED BLOOD COUNT 4.82 MIL/MM3 (4.50-5.90); RED CELL DISTRIBUTION WIDTH 13.1 % (11.6-17.2); WHITE BLOOD COUNT 6.4 TH/MM3 (4.0-11.0)
[2017-08-10] MEDS ORDERED: LEVEMIR SQ (07:41)
[2017-08-10] MEDS ORDERED: CLIN300C5 PO (07:42)
--- NOTE | 2017-08-10 07:45 | HHI.FF ---
Face to Face Verification Diagnosis: (1) Poorly controlled diabetes mellitus (2) Scrotal abscess Home Health Nursing Order: Medical education Signs/symptoms of disease process Diabetic education Medication education-adverse effect Wound care and dressing changes Nursing assessment with vital signs Instructions: Wound care per Urology Dr. Headley: remove out packing then pack with iodoform gauze then place 4x4 gauze with fluff. change daily I have seen patient Rene Bella ClaJr sin on 08/10/17. My clinical findings support the need for the requested home health care services because: Limited ability to care for self Infection w/ risk of complications I certify that my clinical findings support that this patient is homebound because: Post-op weakness Chanda Kelly August 10, 2017 07:45 Kvng Hernandez MD August 10, 2017 11:58
[2017-08-10] MEDS: INSULIN ASPART SUPPLEMENTAL SCALE SQ SCH ×2 (07:46→11:34)
[2017-08-10] MEDS: SODIUM CHLORIDE 0.9% FLUSH 10 ML FLUSH IV FLUSH SCH (07:46)
[2017-08-10] MEDS: CARVEDILOL 6.25 MG TAB PO SCH (07:46)
[2017-08-10] MEDS: FUROSEMIDE 20 MG TAB PO SCH (07:46)
[2017-08-10] MEDS: DOCUSATE SODIUM 50 MG/SENNA 8.6 MG TAB PO SCH (07:46)
[2017-08-10] MEDS: POTASSIUM CHLORIDE 10 MEQ CONTROLLED RELEASE TAB PO SCH (07:46)
[2017-08-10 07:47] LABS: CALCIUM 8.3 MG/DL (8.5-10.1); CREATININE 0.88 MG/DL (0.60-1.30)
[2017-08-10] MEDS: ENOXAPARIN SODIUM 40 MG/0.4 ML SYRINGE SQ SCH (07:47)
[2017-08-10] MEDS: INSULIN DETEMIR 100 UNITS/ML VIAL SQ SCH (07:47)
[2017-08-10 08:00] VITALS: BP 156/73; PULSE 70; RESP 18; TEMP 98.1; O2SAT 94
[2017-08-10] MEDS ORDERED: NOVOLOGP2 SQ (08:18)
[2017-08-10] MEDS ORDERED: INSU1INJ14 SQ (08:19)
--- NOTE | 2017-08-10 08:25 | HHI.DS ---
Discharge Summary Admission Date August 06, 2017 at 17:56 Discharge Date: August 10, 2017 Admitting Diagnosis scrotal abscess, hypertension, diabetic (1) Scrotal abscess ICD Codes: N49.2 - Inflammatory disorders of scrotum Status: Acute (2) Insulin dependent type 2 diabetes mellitus ICD Codes: E11.9 - Type 2 diabetes mellitus without complications; Z79.4 - [facility] (current) use of insulin Status: Chronic (3) HTN (hypertension), benign ICD Codes: I10 - Essential (primary) hypertension Status: Chronic Consultants Dr. Headley, Urology Procedures Incision and drainage of left scrotal abscess 08/08/[address] Headley Brief History Patient presents to the emergency department complaining of a 3 day history of "knot on testicle." States for the past couple of days has been bleeding with foul-smelling pus drainage from scrotum. He denies fever, chills, nausea, vomiting, dysuria, or penile discharge. He does report difficulty ambulating secondary to the pain, fatigue, and testicular swelling. Pain also has pain with any movement,ultrasound in er suggests scrotal abscess will start on IV antibiotics ,discussed with urology will probably need surgery will start process to transfer to [facility]. PMH-insulin diabetes and hypertension. CBC/BMP: 08/10/17 0700 08/10/17 0700 Significant Findings Laboratory Tests Test 08/08/17 10:30 08/10/17 07:00 Vancomycin Level Trough 13.0 MCG/ML (5.0-10.0) Monocytes (%) (Auto) 9.0 % (0.0-8.0) Eosinophils (%) (Auto) 4.6 % (0.0-4.0) Random Glucose 187 MG/DL (74-106) Calcium Level 8.3 MG/DL (8.5-10.1) PE at Discharge GENERAL: This is a morbidly obese, well-developed patient, in no apparent distress. CARDIOVASCULAR: Regular rate and rhythm RESPIRATORY: Clear to auscultation. Breath sounds equal bilaterally. GASTROINTESTINAL: Abdomen soft, non-tender, nondistended. Normal active bowel sounds : scrotal swelling, packing noted at left scrotum MUSCULOSKELETAL: Extremities without clubbing, cyanosis, or edema. NEURO: Alert & Oriented x4 to person, place, time, situation. Moves all ext x4 Hospital Course Scrotal abscess - Pt presented to the ER 08/07/17 with c/o 3 day h/o scrotal pain, swelling, and drainage - Scrotal US (08/07/17) 1. 5.4 x 2.4 x 2.1 cm complex fluid collection in the lateral aspect of the left hemiscrotum that corresponds to the area of palpable abnormality. A scrotal abscess should be considered. - Pt underwent I&D of left hemiscrotum performed by Urology, Dr. Headley (08/08/17) - Blood culture (08/06) --> no growth x 3 days - Intraoperative Cultures (08/06) --> Gram stain rare WBC no organism seen Fluid culture no growth x 24 hours Fungal smear no fungal elements Fungal culture pending Acid fast stain pending Mycobacterial culture pending - Vancomycin (08/06 - 08/10) - Zosyn (08/06 - 08/10) - DC home on clindamycin - [facility] for dressing changes - supportive care Insulin dependent type 2 diabetes mellitus Levemir to 15 units BID continue metformin acc checks ACHS with SSI HTN (hypertension), benign - coreg Lovenox for DVT prophylaxis while in the hospital Pt Condition on Discharge: Stable Discharge Disposition: Disch w/ Home Health Serv Discharge Instructions DIET: Follow Instructions for: Heart Healthy Diet, Diabetic Diet, Weight Management Activities you can perform: Weight Bearing as Margareth Follow up Referrals: PCP Follow-up - [address] Guzman Urology - 1 Week with Sarabjit Headley MD New Medications: Clindamycin (Clindamycin) 300 Mg Cap 300 MG PO TID for Infection, #21 CAP 0 Refills Continued Medications: Aspirin (Aspirin) 325 Mg Tab 325 MG PO DAILY, #30 TAB 0 Refills Carvedilol (Carvedilol) 6.25 Mg Tab 6.25 MG PO Q12HR, #60 TAB 0 Refills Furosemide (Lasix) 20 Mg Tab 20 MG PO DAILY, #30 TAB 0 Refills Insulin Aspart Inj (Novolog Inj) 1,000 Unit/10 Ml Vial 20 UNITS SQ TIDPC for Blood Sugar Management, #10 ML 0 Refills Insulin Degludec Inj (Tresiba Flextouch Pen Inj) 300 unit/3 ML Pen 1 UNITS SQ TID for Blood Sugar Management, #15 ML 0 Refills Unknown dose Metformin ER (Metformin ER) 1,000 Mg Robbi 1000 MG PO BID for Blood Sugar Management, #30 TAB 0 Refills With evening meal Potassium Chloride ER (Potassium Chloride ER) 10 Meq Cap 10 MEQ PO DAILY for Electrolyte Replacement, #30 CAP 0 Refills Simvastatin (Simvastatin) 80 Mg Tab 80 MG PO DAILY for Cholesterol Management, #30 TAB 0 Refills Tamsulosin (Flomax) 0.4 Mg Cap 0.4 MG PO HS for Manage Prostate Problems, #90 CAP 3 Refills Chanda Kelly August 10, 2017 08:25 Kvng Hernandez MD August 10, 2017 13:00
[2017-08-10] MEDS: metFORMIN HCL 500 MG TAB PO SCH (09:16)
[2017-08-10] MEDS: VANCOMYCIN INJ 2,000 MG in SODIUM CHLORID 0.9% 500 ML INJ 500 ML IV SCH (11:00)
[2017-08-10] MEDS ORDERED: PANTOPRAZOLE SOD 40 MG DELAYED RELEASE TAB PO SCH (15:00)
== END 2017-08-10 14:56 | disposition home health service (06) | DRG 728 ==
LOC: PHED 15:08 → PHEDA 17:56 → PH3A 20:14 → N07B 08-07 02:59
PROVIDERS: ADMIT Hospitalist; ATTEND Hospitalist
PROC: 0V950ZZ Drainage of Scrotum, Open Approach (ICD-10-PCS; principal; 2017-08-08 12:07)
DX: N49.2 Inflammatory disorders of scrotum (principal); I10 Essential (primary) hypertension; E11.9 Type 2 diabetes mellitus without complications; K21.9 Gastro-esophageal reflux disease without esophagitis; F17.200 Nicotine dependence, unspecified, uncomplicated; Z79.4 Long term (current) use of insulin; Z86.73 Personal history of transient ischemic attack (TIA), and cerebral infarction without residual deficits; Z79.82 Long term (current) use of aspirin; Z79.899 Other long term (current) drug therapy
CPT/HCPCS: 76870; 80048; 80053; 80202; 82948; 85025; 85610; 85730; 87015; 87040; 87070; 87102; 87116; 87205; 87206; 93005; 93975; 96365; 96367; 96375; C9113; J0131; J0330; J1100; J1170; J1650; J1815; J2250; J2405; J2543; J2550; J3010; J3370; J7040; J7050; J7120